=== PATIENT | female | born 1985 ===

== ENCOUNTER 2020-08-12 12:17 | Day surgery (SDC) | payer MEDICAID, SELFPAY ==
[2020-08-07 19:34] VITALS: BMI 23.9
--- NOTE | 2020-08-09 09:00 | HO.ANESPROP2 ---
Documented by User: Jyotsna Lyons 08/09/20 09:08 [facility] Past Medical History Medical History Asthma Hydradenitis Surgical History Surgical History History of incision and drainage Social History Social History Smoking Status: Never smoker Second Hand Smoke Exposure: No Meds Allergies Allergy/AdvReac Type Severity Reaction Status Date / Time Codeine Phosphate Allergy Unknown rash Uncoded 05/20/20 00:00 Home Medications Medication Instructions Recorded Confirmed Type albuterol sulfate 2 puff INHALATION QID PRN 08/07/20 08/07/20 History Exam Exam Date and Time: August 09, 2020 0900 Height,Weight and Vital Signs: Height 5 ft 7 in Weight 69.4 kg Assessment and Plan Assessment Anesthesia Assessment: Chart Reviewed Documented by User: Mary Brand 08/12/20 12:07 [facility] Past Medical History Medical History Asthma Hydradenitis Surgical History Surgical History History of incision and drainage Social History Social History Smoking Status: Never smoker Second Hand Smoke Exposure: No Meds Allergies Allergy/AdvReac Type Severity Reaction Status Date / Time Codeine Phosphate Allergy Unknown rash Uncoded 05/20/20 00:00 Home Medications Medication Instructions Recorded Confirmed Type albuterol sulfate 2 puff INHALATION QID PRN 08/07/20 08/07/20 History Exam Airway Mallampati Class: II TM Dist: >3cm Neck ROM: Full
[2020-08-12 11:46] LABS: UPreg QC Valid YES; Urine Pregnancy NEGATIVE (NEGATIVE)
[2020-08-12 11:53] VITALS: BP 92/67; PULSE 75; RESP 18; TEMP 36.6; O2SAT 97
[2020-08-12] MEDS: Lactated Ringers 1,000 ML 100 ML IVCONT (12:05)
--- NOTE | 2020-08-12 12:21 | MHC.SHP ---
Pre-Procedural Eval Section B Chief Complaint: Dysphagia Relevant Family History (Specify if Yes): No Relevant Social History: None Present Medications: see Short Stay Collaborative assessment Medical History: Significant History (asthma, vit d def) History of Previous Operations: Relevant previous surgery/procedure and date(s) (axillary surgery) Allergies: Allergies Allergy/AdvReac Type Severity Reaction Status Date / Time Codeine Phosphate Allergy Unknown rash Uncoded 05/20/20 00:00 Review of Systems Sugical H&P ROS: Negative: Constitution, Cardiovascular, Respiratory, Neurological, Psychiatric, Hem-Onc, Allergic/Immunologic, Gastrointestinal, Genitourinary, Musculoskeletal, Integumentary, Endocrine and Eyes/Ears/Nose/Throat Exam Surgical H&P Exam: Normal: HEENT, Normal: Heart, Normal: Lungs, Normal: Extremities, Normal: Abdomen, Normal: Skin and Normal: Neurological Plan Diagnosis/Plan: Unchanged Patient has been examined and remains a candidate for the planned procedure
--- NOTE | 2020-08-12 12:25 | PM.OP ---
Brief Operative Note Date of procedure: 08/12/20 Pre-op diagnosis: burping, dysphagia Post-op diagnosis: same Procedure: egd, see op note Surgeon: Stacy Fraser MD Anesthesia: MAC Estimated blood loss (mL): 10 Condition: stable Disposition: PACU
--- NOTE | 2020-08-12 12:26 | W.PM.OPN ---
Operative Note Operative Note Narrative: Procedure Description: EGD FLEXIBLE TRANSORAL UPPER GASTROINTESTINAL ENDOSCOPY UPPER ENDOSCOPY Consent: Indications for the procedure and potential complications of bleeding, perforation, reaction to medications and missed diagnosis were discussed with the patient and informed consent was obtained. Instrument: Olympus GIF H 190 J mid size upper endoscope Monitoring: Vital signs and clinical assessment, continuous EKG monitoring, Pulse oximetry, Carbon Dioxide monitoring and blood pressure monitoring were done throughout the procedure. Procedure: The patient was placed in the left lateral decubitis position and pre-procedure medications were administered and a bite block was placed. The endoscope was inserted into the mouth and advanced under direct vision to the third part of duodenum. A careful inspection was made as the upper endoscope was withdrawn including a retroflexed examination of the proximal stomach; Findings and interventions are described below. Findings: Larynx:normal Esophagus: GE junction at 36 cm, diaphragm hiatus at 36 cm, Esophagitis noted at the GEJ, moderately severe. using a savary wire a 17 mm bougie was passed and on withdrawal a superficial tear noted at upepr esophagus, mid esophagus and at GEJ. random biopsies of esophagus taken. Stomach: Patchy gastric erythema. Biopsies were obtained. Grade 2 flap valve on retroflexed examination of the cardia. Duodenum: Normal bulb and descending duodenum, Intervention: Biopsies as noted above, dilation Impression/Findings: esophageal stricture s/p dilation PLAN: clears today and advance tomorrow as tolerated high dose PPI, carafate, magic mouthwash prn if sx persist then GES, possible ph impedance, manometry testing
[2020-08-12 12:54] VITALS: BP 104/67; PULSE 96; RESP 21; TEMP 36.5; O2SAT 97
[2020-08-12 13:09] VITALS: BP 108/58; PULSE 67; RESP 14; O2SAT 99
[2020-08-12] MEDS: Mag&Al/Sim/Diphenhyd/Lidocaine 10 ML ORAL.SUSP PO (13:23)
[2020-08-12 13:24] VITALS: BP 123/87; PULSE 62; RESP 13; TEMP 36.5; O2SAT 100
[2020-08-12] MEDS: Acetaminophen 325 MG TABLET 650 MG PO (14:28)
--- NOTE | 2020-08-12 15:05 | HO.POSTANES ---
Post Anesthesia Evaluation Post Anesthesia Evaluation Vital Signs: Vital Signs Temp Pulse Resp BP Pulse Ox 08/12/20 13:24 97.7 F 62 13 123/87 100 08/12/20 13:09 67 14 108/58 L 99 08/12/20 12:54 97.7 F 96 21 H 104/67 97 08/12/20 11:53 97.8 F 75 18 92/67 97 Anesthesia: Monitored Mental Status: Awake Pain Control: Satisfactory Nausea/Vomiting: None Hydration: Adequate Anesthesia-Related Issues: No Anes. Related Issues
== END 2020-08-12 23:59 | disposition home or self-care (01) ==
PROVIDERS: Nurse Practitioner; PCP Nurse Practitioner Family; Visit Provider Internal Medicine Gastroenterology
PROC: 0DJ08ZZ Inspection of Upper Intestinal Tract, Via Natural or Artificial Opening Endoscopic (ICD-10-PCS; CPT 43235; principal; 2020-08-12 11:40)
DX: K22.2 Esophageal obstruction (principal); K20.0 Eosinophilic esophagitis; R13.10 Dysphagia, unspecified; K44.9 Diaphragmatic hernia without obstruction or gangrene; J45.909 Unspecified asthma, uncomplicated; Z88.8 Allergy status to other drugs, medicaments and biological substances
CPT/HCPCS: 43248; 43239; 81025; 88305; 88342; C1769

== ENCOUNTER → 2020-09-09 08:11 | Outpatient (BNVA) | payer MEDICAID, SELFPAY | PROVIDERS: Visit Provider Physician Assistant | DX: Z76.89 Persons encountering health services in other specified circumstances (principal) ==

== ENCOUNTER → 2020-10-14 09:29 | Outpatient (BNVA) | payer MEDICAID, SELFPAY | PROVIDERS: PCP Nurse Practitioner Family; Visit Provider Physician Assistant | DX: Z76.89 Persons encountering health services in other specified circumstances (principal) ==

== ENCOUNTER → 2020-11-15 08:05 | Outpatient (REF) | payer MEDICAID, SELFPAY ==
--- NOTE | ~2020-11-15 | NM_ITS ---
EXAMINATION: RADIONUCLIDE SOLID FOOD GASTRIC EMPTYING 4-HOUR STUDY CLINICAL INFORMATION: Gastroesophageal reflux disease. COMPARISON: No previous gastric emptying study is available for comparison. TECHNIQUE: A standard meal consisting of 4 oz of Egg Beaters brand equivalent tagged with 790 microcuries Tc-99m Sulfur Colloid, 8 oz water and 2 slices of toast with jelly was administered orally to the patient. Images were obtained using a dual head gamma camera in the anterior and posterior projections over of the stomach immediately post ingestion and at hourly intervals up to 4 hours post ingestion. The anterior and posterior counts at each time interval were averaged using the geometric mean and expressed as percentage of the immediate post ingestion counts. FINDINGS: There is good visualization of activity in the stomach immediately post ingestion. As the study progresses, there is good clearance of activity from the stomach and visualization of progressively increasing small bowel activity. By the end of the study, there is almost no retention noted in the stomach. Retention in the stomach at each time interval was: 1 hour 62% (normal 37%-90%) 2 hours 38% (normal 30%-60%) 3 hours 13% 4 hours 9% (normal 0%-10%) NM/NM gastric emptying study IMPRESSION: Normal 4-hour solid food gastric emptying study.
== END ==
LOC: HO.NUCMED 08:05
PROVIDERS: Visit Provider Physician Assistant
DX: K21.9 Gastro-esophageal reflux disease without esophagitis (principal)
CPT/HCPCS: 78264; A9541

== ENCOUNTER 2020-12-09 13:04 | Outpatient (REF) | payer MEDICAID, SELFPAY | END 2020-12-09 13:05 | disposition home or self-care (01) | LOC: HO.LNP 13:04 | PROVIDERS: PCP Nurse Practitioner Family; Visit Provider Surgery | DX: L72.0 Epidermal cyst (principal) | CPT/HCPCS: 11402; 99212 ==

== ENCOUNTER 2020-12-09 15:23 | Outpatient (REF) | payer MEDICAID, SELFPAY | END 2020-12-09 15:24 | disposition home or self-care (01) | LOC: HO.LAB 15:23 | PROVIDERS: Visit Provider Surgery | DX: L72.0 Epidermal cyst (principal) | CPT/HCPCS: 88304 ==

== ENCOUNTER → 2020-12-23 13:32 | Outpatient (BNVA) | payer MEDICAID, SELFPAY | PROVIDERS: PCP Nurse Practitioner Family; Visit Provider Surgery | DX: Z48.817 Encounter for surgical aftercare following surgery on the skin and subcutaneous tissue (principal); Z87.2 Personal history of diseases of the skin and subcutaneous tissue | CPT/HCPCS: 99212 ==

== ENCOUNTER → 2021-03-17 14:56 | Outpatient (BNVA) | payer MEDICAID, SELFPAY | PROVIDERS: PCP Nurse Practitioner Family; Visit Provider Surgery | DX: L72.0 Epidermal cyst (principal) | CPT/HCPCS: 99212 ==

== ENCOUNTER → 2021-06-10 12:55 | Outpatient (BNVA) | payer MEDICAID, SELFPAY | PROVIDERS: PCP Internal Medicine; Referring Provider Internal Medicine; Visit Provider Physician Assistant | DX: K21.9 Gastro-esophageal reflux disease without esophagitis (principal); G47.30 Sleep apnea, unspecified; Z78.9 Other specified health status | CPT/HCPCS: 99212 ==

== ENCOUNTER → 2021-09-03 14:37 | Outpatient (BNVA) | payer MEDICAID, SELFPAY | PROVIDERS: PCP Internal Medicine; Visit Provider Surgery | DX: L72.0 Epidermal cyst (principal) | CPT/HCPCS: 99212 ==

== ENCOUNTER 2021-10-09 08:23 | Outpatient (REF) | payer MEDICAID, SELFPAY | END 2021-10-09 08:24 | disposition home or self-care (01) | LOC: HO.MS 08:23 | PROVIDERS: Visit Provider Surgery | DX: L72.0 Epidermal cyst (principal); Z53.20 Procedure and treatment not carried out because of patient's decision for unspecified reasons ==

== ENCOUNTER 2021-10-30 16:00 | Outpatient (REF) | payer MEDICAID, SELFPAY ==
--- NOTE | ~2021-10-30 | XR_ITS ---
EXAMINATION: XR KNEE, RIGHT CLINICAL INFORMATION: Pain COMPARISON: None TECHNIQUE: Four views of the right knee. FINDINGS: Bones and soft tissues are normal. No fracture or joint effusion. Alignment is anatomic. Joint spaces are well maintained. No abnormal soft tissue calcification. XR/XR knee RT 4V IMPRESSION: Normal right knee.
== END 2021-10-30 16:01 | disposition home or self-care (01) ==
LOC: HO.XRAY 16:00
PROVIDERS: PCP Registered Nurse Community Health; Visit Provider Nurse Practitioner
DX: M25.561 Pain in right knee (principal)
CPT/HCPCS: 73564

== ENCOUNTER 2021-11-01 11:57 | Emergency (ER) | payer MEDICAID, SELFPAY ==
[2021-11-01 13:52] VITALS: BP 108/67; PULSE 65; RESP 19; TEMP 36.6; O2SAT 100; BMI 23.9
--- NOTE | 2021-11-01 14:35 | ED.WOUNDLAC ---
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 Patient tells me this occurs quite commonly to her especially if she is shaving. No fevers, chills, numbness, tingling. Related Data Home Medications Medication Instructions Recorded Confirmed albuterol sulfate 90 mcg/actuation 2 puff INHALATION QID PRN 08/07/20 09/03/21 aerosol inhaler Previous Rx's Medication Instructions Recorded pantoprazole 40 mg tablet,delayed 40 mg PO Q12H 90 Days #180 tab 10/30/21 release sucralfate 100 mg/mL oral 10 ml PO BID #420 ml 10/30/21 suspension (Carafate) doxycycline monohydrate 100 mg 100 mg PO BID #20 tab 11/01/21 tablet Allergies Allergy/AdvReac Type Severity Reaction Status Date / Time Codeine Phosphate Allergy Unknown rash Uncoded 06/10/21 13:04 Review of Systems Review of Systems: Yes all other systems are reviewed and are negative Constitutional: Constitutional: Reports no additional constitutional complaints, Denies body ache(s), Denies chills, Denies fever(s), Denies headache(s) and Denies weakness Eyes: Eyes: Reports no additional eye complaints and Denies change in vision ENT: Reports system reviewed and no additional complaints, except as documented, Denies dizziness, Denies headache(s), Denies nasal congestion, Denies nasal discharge and Denies neck pain Cardiovascular: Cardiovascular: Reports no additional cardiovascular complaints, Denies chest pain, Denies leg edema and Denies dyspnea Respiratory: Respiratory: Reports no additional respiratory complaints, Denies cough and Denies dyspnea Gastrointestinal: Gastrointestinal: Reports no additional gastrointestinal complaints, Denies abdominal pain, Denies diarrhea, Denies nausea and Denies vomiting Genitourinary: Genitourinary: Reports no additional female genitourinary complaints and Denies urinary incontinence Musculoskeletal: Musculoskeletal: Reports no additional musculoskeletal complaints, Denies back pain, Denies arthralgias, Denies joint swelling, Denies neck pain, Denies numbness and Denies tingling Integumentary/Breasts: Skin/Breast: Reports system reviewed and no additional complaints, except as docu, Reports swelling and Denies rash Neurologic: Reports system reviewed and no additional complaints, except as documented, Denies Abnormal speech present, Denies dizziness, Denies headache(s), Denies numbness, Denies tingling and Denies weakness [facility] Past Medical History Attestation statement: The following information was validated with the patient. Source: old records reviewed and nursing notes reviewed Medical History Acid reflux Aerophagia Asthma Epidermal cyst Hydradenitis Surgical History History of incision and drainage Social History Social History Household Members Other:: Lives alone no children Second Hand Smoke Exposure: No Advance Directives: No Advance Directives Information Provided: No Patient : No Current occupational status: employed Current occupation: [employer] Physical Exam Vital Signs: Vital Signs: Last Vital Signs Temp 98 F 11/01/21 13:52 Pulse 65 11/01/21 13:52 Resp 19 11/01/21 13:52 BP 108/67 11/01/21 13:52 Pulse Ox 100 11/01/21 13:52 BMI result Body Mass Index 23.9 Const: General: cooperative, healthy appearing, comfortable and no acute distress Orientation/consciousness: patient oriented x3 Limitations: no limitations HENMT: Head: Yes normal to inspection Ears: hearing grossly normal bilaterally General nose exam: Normal external nose present Face and sinus: Yes normal facial exam Mouth: Normal oral and palatal mucosa present Throat: Yes posterior oropharynx normal Eyes: General: appearance normal, both eyes and all related structures Pupils: Equal, round and reactive pupils present Neck: Neck: Yes normal visual inspection Chest: Chest palpation & inspection: normal inspection of the chest Resp: Effort & Inspection: normal respiratory effort Auscultation: clear to auscultation bilaterally Cardio: Rate: regular rate Rhythm: regular rhythm Peripheral pulses: Peripheral pulses 2+ throughout GI: Inspection: Yes normal to inspection Palpation (GI): Soft to palpation and nontender Auscultation: normal bowel sounds : Female genitals images: 1. Small area of swelling with drainage noted. No deeper fluctuance/induration. +tenderness 2. Small area of swelling with tenderness and induration. NO fluctuance/pointing or drainage. Back/Spine/Pelvis: Thoracic/Lumbar Spine: thoracic and lumbar spine normal to inspection Skin: General skin exam: no rashes or lesions noted Neuro: General: patient oriented x3, no focal motor deficits and normal sensation to monofilament Cranial nerves: Yes Equal, round and reactive pupils present Cognition (Neuro): normal cognition Speech: No Abnormal speech present Gait exam (Neuro): Normal gait present Motor exam (neuro): 5/5 motor strength present throughout Extrem: General: Yes normal to inspection Course Course Course Narrative: 36 yo female here with reoccurrent abscesses which she contributes shaving. On exam she has 2 small abscesses 1 that is draining on its own and a 2nd that is very firm and indurated with no pointing or fluctuance. I explained to the patient that at this time I would not perform an I&D. She should do warm soaks at home and we will start her on oral antibiotic. Reviewed worrisome signs and symptoms of when to return to the emergency department. Comfortable discharge home. MDM - Wound/Laceration Differential Diagnosis Differential diagnosis: Likely abscess Medical Records Attestation: I reviewed the patient's medical records. Lab Data Attestation: I reviewed the patient's lab results. Discharge Plan Discharge Clinical Impression: Folliculitis Patient Disposition: Home, Self-Care Instructions: Folliculitis (ED) Additional Instructions: Warm soaks with washcloth or warm tea bag Start antibiotics today. Take with food No shaving, exfoliate with a scrub daily in shower Prescriptions: New doxycycline monohydrate 100 mg tablet 100 mg PO BID Qty: 20 RF: 0 No Action pantoprazole 40 mg tablet,delayed release (DR/EC) 40 mg PO Q12H 90 Days Qty: 180 RF: 1 sucralfate [Carafate] 100 mg/mL suspension 10 ml PO BID Qty: 420 RF: 0 albuterol sulfate 90 mcg/actuation Hfa Aerosol Inhaler 2 puff INHALATION QID PRN (Reason: Shortness Of Breath) RF: 0 Referrals: Physician,Unknown J [Primary Care Provider] - 2 days Interventions: ED Discharge Assessment Last Done: 11/01/21 14:53 Discharge Date/Time: 11/01/21 14:53
== END 2021-11-01 14:53 | disposition home or self-care (01) ==
PROVIDERS: Emergency Provider Internal Medicine
DX: L73.9 Follicular disorder, unspecified (principal)
CPT/HCPCS: 99283

== ENCOUNTER → 2022-02-23 09:26 | Outpatient (BNVA) | payer MEDICAID, SELFPAY | PROVIDERS: PCP Registered Nurse Community Health; Referring Provider Registered Nurse Community Health; Visit Provider Surgery | DX: L72.0 Epidermal cyst (principal) | CPT/HCPCS: 99212 ==

== ENCOUNTER 2022-07-02 14:04 | Outpatient (REF) | payer MEDICAID, SELFPAY ==
--- NOTE | ~2022-07-02 | US_ITS ---
EXAMINATION: US PELVIS CLINICAL INFORMATION: Dyspareunia COMPARISON: Previous pelvic ultrasound October 2016 TECHNIQUE: Ultrasound of the pelvis is performed using both transabdominal and transvaginal transducers along with Doppler. Transvaginal imaging is performed due to inadequate visualization transabdominally. FINDINGS: Uterus: The uterus is anteverted and measures 9.1 x 3.1 x 4.6 cm. The double wall endometrial thickness is 6 mm. The uterus is smooth in contour and has normal myometrial echogenicity. No visible fibroid. Adnexa: Both ovaries are visualized. Right ovary measures 3.5 x 2.7 x 2.4 cm. There is a 1.8 cm simple cyst. Left ovary measures 4.2 x 3 x 2.5 cm. There is a 1.9 x 2 x 1.4 cm complex cyst probably representing a resolving physiologic cyst. No ultrasound follow-up warranted based on patient age and size of cysts. There is a small amount of fluid in the pelvis. US/US pelvic and transvaginal IMPRESSION: Small bilateral right simple and left left complex ovarian cysts.
== END 2022-07-02 14:05 | disposition home or self-care (01) ==
LOC: HO.US 14:04
PROVIDERS: Visit Provider Registered Nurse Community Health
DX: N94.10 Unspecified dyspareunia (principal)
CPT/HCPCS: 76830; 76856

== ENCOUNTER 2022-08-26 08:26 | Outpatient (REF) | payer MEDICAID, SELFPAY ==
[2022-08-26 17:25] LABS: CT PCR NOT DETECTED (Not Detect.); NG PCR NOT DETECTED (Not Detect.)
[2022-08-27 10:12] LABS: BV Int Neg Control Negative (Negative); BV Int Pos Control Positive (Positive)
== END 2022-08-26 08:27 | disposition home or self-care (01) ==
LOC: HO.LNP 08:26
PROVIDERS: Visit Provider Obstetrics & Gynecology
DX: N94.6 Dysmenorrhea, unspecified (principal); N94.10 Unspecified dyspareunia; N83.299 Other ovarian cyst, unspecified side; R31.29 Other microscopic hematuria; Z32.02 Encounter for pregnancy test, result negative
CPT/HCPCS: 81025; 87086; 87480; 87491; 87510; 87591; 87660; 99202

== ENCOUNTER → 2022-09-08 08:19 | Outpatient (BNVA) | payer MEDICAID, SELFPAY | PROVIDERS: PCP Registered Nurse Community Health; Visit Provider Obstetrics & Gynecology | DX: R31.29 Other microscopic hematuria (principal) | CPT/HCPCS: 99212 ==

== ENCOUNTER 2022-09-10 09:20 | Outpatient (REF) | payer MEDICAID, SELFPAY ==
--- NOTE | ~2022-09-10 | CT_ITS ---
EXAMINATION: CT ABDOMEN AND PELVIS WITHOUT AND WITH CONTRAST CLINICAL INFORMATION: Microscopic hematuria COMPARISON: Previous pelvic ultrasound June 2022 TECHNIQUE: Noncontrast CT of the abdomen and pelvis is performed followed by split bolus contrast-enhanced images using 85 mL Omnipaque 350 contrast.? Postcontrast imaging is performed during the combined nephrogram and excretion phase. Sagittal and coronal reformatted images were obtained on the technologist's workstation for both the precontrast and postcontrast phases. This CT examination was performed using dose optimization techniques as appropriate, variously including the following: *Automated exposure control *Adjustment of mA and/or kV according to patient size (this includes techniques or standardized protocols for targeted exams where dose is matched to indication/reason for exam; i.e. extremities or head) *Use of iterative reconstruction technique DLP: 1075 mGy-cm FINDINGS: LUNG BASES: The visualized lung bases are unremarkable. LIVER, GALLBLADDER, AND BILIARY TREE: The liver is normal in size, shape, and attenuation. No focal hepatic lesion or biliary ductal dilatation is present. The gallbladder is unremarkable with no evidence of radiopaque gallstones, gallbladder wall thickening, or obvious pericholecystic inflammatory changes. PANCREAS: Unremarkable. SPLEEN: Unremarkable. ADRENAL GLANDS: Unremarkable. KIDNEYS AND URETERS: The kidneys are normal in size, shape, and attenuation. No hydronephrosis, hydroureter, or calculi seen. The collecting systems are normal. Upper ureters are normal. The distal ureters are not well opacified with excreted contrast but appear unremarkable. No perinephric stranding. BLADDER: Unremarkable. GASTROINTESTINAL TRACT: The small and large bowel are unremarkable. The appendix is unremarkable. ABDOMINAL WALL: No significant hernia is appreciated. LYMPH NODES: Normal. VASCULAR: Unremarkable. PELVIC VISCERA: The uterus and ovaries are unremarkable. There is a small amount of fluid in the pelvis. OSSEUS STRUCTURES: Mild curvature of the lumbar spine to the left. CT/CT urogram IMPRESSION: Unremarkable CT urogram. No cause of hematuria.
[2022-09-10] MEDS: iohexoL 350 MG/ML 100 ML INFUS..BTL IV (10:21)
== END 2022-09-10 09:21 | disposition home or self-care (01) ==
LOC: HO.CT 09:20
PROVIDERS: Visit Provider Obstetrics & Gynecology
DX: R31.29 Other microscopic hematuria (principal)
CPT/HCPCS: 74178; Q9967

== ENCOUNTER 2022-09-21 15:09 | Emergency (ER) | payer MEDICAID, SELFPAY ==
--- NOTE | 2022-09-21 15:14 | ED_ITS ---
HPI - General Adult General Chief complaint: General Medical Stated complaint: losing a lot of hair, bad scalp? Time Seen by Provider: 09/21/22 15:23 Source: patient Mode of arrival: ambulatory Limitations: no limitations History of Present Illness HPI narrative: 37 yo female with history of GERD here with complaints of losing her hair since 08/31. 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 Has appointment 09/24 with a primary care doctor. Went to walk in clinic the week of the 31 of august. Starting using betamethasone cream since then but experiencing increased hair loss. No increased stressors in life prior to hair loss. Related Data Home Medications Medication Instructions Recorded Confirmed albuterol sulfate 90 mcg/actuation 2 puff inhalation QID PRN 08/07/20 09/03/21 aerosol inhaler Shortness Of Breath Previous Rx's Medication Instructions Recorded pantoprazole 40 mg tablet,delayed 40 mg PO Q12H 3 months #180 tabs 10/30/21 release doxycycline monohydrate 100 mg 100 mg PO BID #20 tabs 11/01/21 tablet sucralfate 100 mg/mL oral 10 ml PO BID #420 mL 11/13/21 suspension (Carafate) Allergies Allergy/AdvReac Type Severity Reaction Status Date / Time Codeine Phosphate Allergy Unknown rash Uncoded 09/08/22 08:36 Review of Systems Review of Systems: Yes all other systems are reviewed and are negative Constitutional: Constitutional: Reports no additional constitutional complaints, Denies body ache(s), Denies chills, Denies fever(s), Denies headache(s) and Denies weakness Eyes: Eyes: Reports no additional eye complaints and Denies change in vision ENT: Reports system reviewed and no additional complaints, except as doctrupti lofton, Denies dizziness, Denies headache(s), Denies nasal congestion, Denies nasal discharge and Denies neck pain Cardiovascular: Cardiovascular: Reports no additional cardiovascular complaints, Denies chest pain, Denies leg edema and Denies dyspnea Respiratory: Respiratory: Reports no additional respiratory complaints, Denies cough and Denies dyspnea Gastrointestinal: Gastrointestinal: Reports no additional gastrointestinal complaints, Denies abdominal pain, Denies diarrhea, Denies nausea and Denies vomiting Genitourinary: Genitourinary: Reports no additional female genitourinary complaints and Denies urinary incontinence Musculoskeletal: Musculoskeletal: Reports no additional musculoskeletal complaints, Denies back pain, Denies arthralgias, Denies joint swelling, Denies neck pain, Denies numbness and Denies tingling Integumentary/Breasts: Skin/Breast: Reports system reviewed and no additional complaints, except as docu and Denies rash Neurologic: Reports system reviewed and no additional complaints, except as documented, Denies dizziness, Denies headache(s), Denies numbness, Denies tingling and Denies weakness PMF Past Medical History Attestation statement: The following information was validated with the patient. Source: old records reviewed and nursing notes reviewed Medical History Acid reflux Aerophagia Asthma Epidermal cyst Hydradenitis Surgical History History of incision and drainage Social History Social History Household Members Other:: Lives alone no children Second Hand Smoke Exposure: No Advance Directives: No Advance Directives Information Provided: No 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 Physical Exam ED Vital Signs: Vital Signs - 24 hr 09/21/22 15:15 Temperature 97.8 F Pulse Rate 82 Respiratory Rate 16 Blood Pressure 100/55 L Pulse Oximetry 100 Oxygen Delivery Method Room Air BMI result Body Mass Index 23.9 Const General: cooperative, healthy appearing, comfortable and no acute distress Orientation/consciousness: patient oriented x3 Limitations: no limitations HENMT Other: To the left occipit there is a circular area of absent hair in a patch like pattern. No redness, warmth, drainage Head: Yes normal to inspection Ears: hearing grossly normal bilaterally Eyes General: appearance normal, both eyes and all related structures Pupils: Equal, round and reactive pupils present Neck Neck: Yes normal visual inspection, Yes full ROM and Yes no lymphadenopathy Chest Chest palpation & inspection: normal inspection of the chest Resp Effort & Inspection: normal respiratory effort Auscultation: clear to auscultation bilaterally Cardio Rate: regular rate Rhythm: regular rhythm Peripheral pulses: Peripheral pulses 2+ throughout GI Inspection: Yes normal to inspection Palpation (GI): Soft to palpation and nontender General: Yes no CVA tenderness Back/Spine/Pelvis Back: no CVA tenderness Thoracic/Lumbar Spine: thoracic and lumbar spine normal to inspection Skin General skin exam: no rashes or lesions noted Neuro General: patient oriented x3 and moves all extremities Cranial nerves: Yes Equal, round and reactive pupils present Cognition (Neuro): normal cognition Gait exam (Neuro): Normal gait present Medical Decision Making Medical Decision Making MDM Narrative: 37-year-old female who is experiencing hair loss for several weeks despite using betamethasone topical cream. Patient has an appointment with primary care on the to discuss this. She also has an appointment in November to see dermatology. Patient is concerned because the cream seems to be making her hair loss worse. Recommended discontinuing topical steroids. Patient can follow-up with her primary care as scheduled in 3 days. No evidence of infection on exam. There is a patch like area of missing hair over the left occipt. Reviewed worrisome signs and symptoms when to return to the emergency room. Comfortable plan for discharge home. Discharge Plan Discharge Clinical Impression: Hair loss Patient Disposition: Home, Self-Care Instructions: Alopecia (DC) Additional Instructions: Stop using the cream Start taking over the counter biotin supplements (hair, skin, nails vitamins). Use a wet brush for brushing the hair Keep appointment for the Prescriptions: No Action pantoprazole 40 mg tablet,delayed release (DR/EC) 40 mg PO Q12H 90 Days Qty: 180 1RF sucralfate [Carafate] 100 mg/mL suspension 10 ml PO BID Qty: 420 0RF albuterol sulfate 90 mcg/actuation Hfa Aerosol Inhaler 2 puff INHALATION QID PRN (Reason: Shortness Of Breath) doxycycline monohydrate 100 mg tablet 100 mg PO BID Qty: 20 0RF Referrals: ED Physician,Generic [Physician] - Interventions: ED Discharge Assessment Last Done: 09/21/22 15:25
[2022-09-21 15:15] VITALS: BP 100/55; PULSE 82; RESP 16; TEMP 36.6; O2SAT 100; BMI 23.9
--- OUTSIDE RECORDS SUMMARY | 2022-09-21 15:30 | XMS_ITS | Continuity of Care Document ---
:1985 Author Organization [facility] Address [address] [place] [id number]- Care Team Providers Name Role Phone Not on Staff, PCP Primary Care Physician Unavailable Encounter [facility] Date(s): 10/23/21 - 11/22/[address] [id number] Attending Physician: Allan Palacio Admitting Physician: Allan Palacio Referring Physician: Allan Palacio
--- OUTSIDE RECORDS SUMMARY | 2022-09-21 15:30 | XMS_ITS | Continuity of Care Document ---
:1985 Author Organization [facility] Address [address] [place] [id number]- Care Team Providers Name Role Phone Not on Staff, PCP Primary Care Physician Unavailable Encounter [facility] Date(s): 10/08/21 - 11/13/[address] [id number] Attending Physician: Ana Ibarra Admitting Physician: Ana Ibarra Referring Physician: Ana Ibarra
--- OUTSIDE RECORDS SUMMARY | 2022-09-21 15:30 | XMS_ITS | Continuity of Care Document ---
:1985 Author Organization [facility] Address [address] [place] [id number]- Care Team Providers Name Role Phone Not on Staff, PCP Primary Care Physician Unavailable Encounter [facility] Date(s): 10/17/21 - 11/22/[address] [id number] Attending Physician: Ana Ibarra Admitting Physician: Ana Ibarra Referring Physician: Ana Ibarra
== END 2022-09-21 15:28 | disposition home or self-care (01) ==
LOC: HO.ED 15:29
PROVIDERS: Emergency Provider Emergency Medicine
DX: L65.9 Nonscarring hair loss, unspecified (principal)
CPT/HCPCS: 99282

== ENCOUNTER 2022-09-29 16:06 | Outpatient (REF) | payer MEDICAID, SELFPAY ==
--- NOTE | ~2022-09-29 | US_ITS ---
EXAMINATION: US PELVIS CLINICAL INFORMATION: Ovarian cyst on ultrasound 07/02/2022 COMPARISON: 07/02/2022 TECHNIQUE: Ultrasound of the pelvis is performed using both transabdominal and transvaginal transducers along with Doppler. Transvaginal imaging is performed due to inadequate visualization transabdominally. FINDINGS: The uterus is anteverted and measures 6.8 x 3.1 x 4.3 cm. No discrete fibroids. Endometrial thickness is 0.6 cm. No significant free fluid. Left ovary is unremarkable and measures 3.4 x 2.4 x 1.8 cm, volume 7.7 mL. Previously identified left ovarian complex cyst is not identified today. Right ovary measures 2.3 x 1.6 x 1.8 cm, volume 3.5 mL. Right ovarian 1.6 x 1.2 x 1.6 cm cyst is likely simple and likely physiologic, possibly a dominant follicle. Previous exam demonstrated a 1.8 cm right ovarian simple cyst. US/US pelvic and transvaginal IMPRESSION: 1. Interval resolution of previously seen left ovarian complex cyst. 2. Right ovarian 1.6 cm simple cyst redemonstrated, likely physiologic.
== END 2022-09-29 16:07 | disposition home or self-care (01) ==
LOC: HO.US 16:06
PROVIDERS: Visit Provider Obstetrics & Gynecology
DX: N83.299 Other ovarian cyst, unspecified side (principal)
CPT/HCPCS: 76830; 76856

== ENCOUNTER → 2022-10-13 08:03 | Outpatient (BNVA) | payer MEDICAID, SELFPAY | PROVIDERS: Visit Provider Obstetrics & Gynecology | DX: R31.29 Other microscopic hematuria (principal); N83.299 Other ovarian cyst, unspecified side | CPT/HCPCS: 99212 ==

== ENCOUNTER 2022-10-20 14:02 | Outpatient (REF) | payer MEDICAID, SELFPAY ==
[2022-10-21 10:01] LABS: BV Int Neg Control Negative (Negative); BV Int Pos Control Positive (Positive)
== END 2022-10-20 14:03 | disposition home or self-care (01) ==
LOC: HO.LNP 14:02
PROVIDERS: Visit Provider Advanced Practice Midwife
DX: N89.8 Other specified noninflammatory disorders of vagina (principal); R31.29 Other microscopic hematuria; B37.31 Acute candidiasis of vulva and vagina; L63.9 Alopecia areata, unspecified
CPT/HCPCS: 81003; 87480; 87510; 87660; 99212

== ENCOUNTER 2022-12-22 09:59 | Outpatient (REF) | payer MEDICAID, SELFPAY ==
[2022-12-22 16:48] LABS: Urine Cytology See Pathology rpt
== END 2022-12-22 10:00 | disposition home or self-care (01) ==
LOC: HO.LAB 09:59
PROVIDERS: Visit Provider Nurse Practitioner Family
DX: R31.29 Other microscopic hematuria (principal)
CPT/HCPCS: 88112; 99202

== ENCOUNTER 2023-11-22 14:08 | Outpatient (REF) | payer MEDICAID, SELFPAY ==
[2023-11-25 14:03] LABS: TS Negative Control Passed; TS Panel A 0; TS Panel B 1; TS Positive Control Passed; TSpotTB Negative (Negative)
== END 2023-11-22 14:09 | disposition home or self-care (01) ==
LOC: HO.CHCLDS 14:08
PROVIDERS: Visit Provider Registered Nurse
DX: Z11.1 Encounter for screening for respiratory tuberculosis (principal)
CPT/HCPCS: 36415; 86481

== ENCOUNTER 2023-12-27 10:11 | Outpatient (REF) | payer MEDICAID, SELFPAY ==
[2023-12-27 14:43] LABS: Estimated Average Glucose 105 mg/dL; Hemoglobin A1c % 5.3 % (<6.0)
[2023-12-27 14:48] LABS: Anion Gap 12 (12-20); Blood Urea Nitrogen 8 mg/dL (9-16); Calcium 8.7 mg/dL (8.4-10.2); Carbon Dioxide 24 mmol/L (22-29); Chloride 110 mmol/L (96-108); Estimated Glomerular Filt Rate > 60; Glucose Random 66 mg/dL (60-115); Sodium 142 mmol/L (135-145)
== END 2023-12-27 10:12 | disposition home or self-care (01) ==
LOC: HO.CHCLDS 10:11
PROVIDERS: Visit Provider Registered Nurse
DX: Z86.32 Personal history of gestational diabetes (principal)
CPT/HCPCS: 36415; 80048; 83036

== ENCOUNTER 2024-01-28 11:23 | Outpatient (REF) | payer MEDICAID, SELFPAY ==
[2024-01-28 16:51] LABS: Alanine Aminotransferase 17 U/L (0-31); Albumin Level 4.3 g/dL (3.5-5.0); Alkaline Phosphatase 66 U/L (39-117); Aspartate Amino Transferase 13 U/L (5-31); Bilirubin Direct 0.1 mg/dL (0.0-0.5); Bilirubin Total 0.4 mg/dL (0.0-1.0); Cholesterol 207 mg/dL (<200); HDL Cholesterol 42 mg/dL (>40); LDL Cholesterol Calculated 146 mg/dL (<100); Total Protein 7.1 g/dL (6.5-8.0); Triglycerides 96 mg/dL (<150)
[2024-01-28 17:13] LABS: TSH reflex Free T4 0.67 uIU/mL (0.32-4.0)
[2024-01-29 04:11] LABS: HIV AB/AG Nonreactive (Nonreactive); HIV Num 1 0.05 S/CO (0.00-0.99)
[2024-01-31 11:14] LABS: RPR Rapid Plasma Reagin NON-REACTIVE (NON-REACTIVE)
[2024-01-31 14:03] LABS: HCV Log PCR <1.18 NOT DETECTED Log IU/mL (NOT DETECTED); HepC Viral Load <15 NOT DETECTED IU/mL (NOT DETECTED)
== END 2024-01-28 11:24 | disposition home or self-care (01) ==
LOC: HO.CHCLDS 11:23
PROVIDERS: Visit Provider Registered Nurse
DX: Z00.00 Encounter for general adult medical examination without abnormal findings (principal)
CPT/HCPCS: 36415; 80061; 80076; 84443; 86592; 87389; 87522

== ENCOUNTER 2024-02-15 14:49 | Outpatient (AMB) | payer MEDICAID, SELFPAY ==
--- NOTE | 2024-02-15 14:50 | A.OFFVIS_ITS ---
Intake Visit Reasons: 1yr follow up Intake Note: Patient presents for microscopic hematuria Urology Medications: none Blood thinner: none Service Person Required: No Accompanied by: Self / Same As Patient Allergies Codeine Phosphate Allergy (Unknown, Uncoded 02/15/24 15:17) rash Medication List - Last Reconciled 02/15/24 by SWAPNIL Urbina albuterol sulfate 90 mcg/actuation 2 puffs inhalation QID PRN betamethasone dipropionate 0.05% appl topical DAILY loratadine 10 mg PO DAILY mupirocin 2% topical DAILY PRN HPI Comments Details: Mariaelena is a pleasant 38-year-old female patient. She presents to the office today for a follow up of her microscopic hematuria. In discussion with the patient today she reports to be doing and feeling well. She reports recently having a baby (Thea) in August and has been recovering well. She currently denies any bothersome urinary issues or concerns. In office urinalysis results reviewed with the patient today 2+ leukocytes negative for microscopic hematuria. Previous urine cytology results reviewed with the patient today. Urine cytology 12/31 Negative for high-grade urothelial carcinoma. Previous workup has included a CT of the abdomen and pelvis that noted kidneys and ureters are normal in size and shape. No hydronephrosis, hydroureter, or calculi seen. The bladder is unremarkable. When asked patient reports longstanding history of recreational marijuana use. She reports having stopped recreational marijuana use while however has since resumed. Discussed at length potential causes of microscopic hematuria, positive leukocytes, and proteinuria. Discussed referral to Nephrology as she discusses having a family history of kidney issues. When asked she currently denies urinary urgency, urinary frequency, incontinence, nocturia, hematuria, dysuria, foul smelling urine, changes to urinary stream, flank pain, fever, and or chills. ? 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 Review of Systems Const Reports as per HPI Eyes Reports no additional complaints ENT Reports no additional complaints Card Reports no additional complaints Resp Reports no additional complaints GI Details: Patient reports long standing history of GERD Reports as per HPI Neuro Reports no additional complaints Psych Reports no additional complaints Endo Reports no additional complaints Heron/Lymph Reports no additional complaints Aller/Immun Reports no additional complaints Physical Exam Const General: cooperative, healthy appearing, comfortable, no acute distress, well developed, alert and awake Nutritional Appearance: average body habitus Orientation/consciousness: patient oriented x3 Limitations: no limitations HEENT Head: Yes normal to inspection, Yes normocephalic and Yes atraumatic Ears: hearing grossly normal bilaterally Eyes General: appearance normal, both eyes and all related structures Neck Neck: Yes normal visual inspection and Yes trachea midline Chest Chest palpation & inspection: normal inspection of the chest Resp Effort & Inspection: normal respiratory effort and able to speak in complete sentences Cardio Rate: regular rate GI Inspection: Yes normal to inspection General: Yes no CVA tenderness Back/Spine/Pelvis Back: no CVA tenderness Skin General skin exam: no rashes or lesions noted Neuro General: patient oriented x3 Extrem General: Yes normal to inspection Psych Appearance: grossly normal and well kempt Mental Status: mental status grossly normal Speech and movement: Normal speech and movement present and Clear speech present Affect: normal affect Attitude: cooperative Thought process: Normal thought process present Thought content: Normal thought content present Insight: Fair insight present (Psych) Judgement: Fair judgement present (Psych) Results AMB Urinalysis, Automated UA Leukoctes 125 Lv/uL Last Edit by [employer] on 02/15/24 15:09 UA Nitrite Negative Last Edit by [employer] on 02/15/24 15:09 UA Urobilinogen 0.2 mg/dL Last Edit by [employer] on 02/15/24 15:09 UA Protein 30 mg/dL Last Edit by [employer] on 02/15/24 15:09 UA pH 6.5 Last Edit by [employer] on 02/15/24 15:09 UA Blood 0 Kenny/uL Last Edit by [employer] on 02/15/24 15:09 UA Specific [place] 1.020 Last Edit by [employer] on 02/15/24 15:09 UA Ketone Positive Last Edit by Guerrero Rainey on 02/15/24 15:09 UA Bilirubin 1 mg/dL Last Edit by Guerrero Rainey on 02/15/24 15:09 UA Glucose 0 mg/dL Last Edit by Guerrero Rainey on 02/15/24 15:09 Results Reviewed Results Reviewed: Laboratory Last Values Urine pH (Auto) 6.5 02/15/24 14:56 Specific [place] (Auto) 1.020 02/15/24 14:56 Urine Protein (Auto) 30 mg/dL 02/15/24 14:56 Glucose (UA)(Auto) 0 mg/dL 02/15/24 14:56 Urine Ketones (Auto) Positive 02/15/24 14:56 Urine Blood (Auto) 0 Kenny/uL 02/15/24 14:56 Urine Nitrite (Auto) Negative 02/15/24 14:56 Urine Bilirubin (Auto) 1 mg/dL 02/15/24 14:56 Urine Urobilinogen (Auto) 0.2 mg/dL 02/15/24 14:56 Leukocyte Esterase (Auto) 125 Lv/uL 02/15/24 14:56 Assessment & Plan Assessment & Plan (1) Microscopic hematuria: Comment: today 10/20 is ending menses... Has had work up. Code(s): R31.29 - Other microscopic hematuria Category: Medical (2) Proteinuria: Code(s): R80.9 - Proteinuria, unspecified Category: Medical Plan In office urinalysis results reviewed with the patient today; 2+ leukocytes proteinuria noted Patient currently denies any bothersome urinary issues or concerns. She reports be happy with current voiding parameters. Discussed, educated, and stressed the importance of limiting/quitting recreational marijuana use for overall health and well-being. Discussed referral to Nephrology as patient with family history of kidney disease and 1+ proteinuria noted on dipstick today; however she declines at this time. Discussed, educated, and stressed the importance of drinking water daily. Will continue with surveillance monitoring. Will obtain retroperitoneal ultrasound, BUN, and creatinine in 1 year. Follow-up in 1 year with imaging and labs to be completed prior; or sooner with any issues, concerns, and or questions. Orders: Orders AMB Urinalysis Automated Today Z13.9 - Encounter for screening, unspecified Blood Urea Nitrogen 1 Year R31.29 - Other microscopic hematuria US retroperitoneal comp 1 Year R31.29 - Other microscopic hematuria Creatinine Today R31.29 - Other microscopic hematuria Patient Instructions: The patient had an opportunity to ask questions regarding the treatment plan. All questions were answered. Physical exam, labs, and imaging were discussed and reviewed in detail. As well as risks, benefits, and discussion of treatment ch oices. No major barriers to understanding were identified. The patient expressed understanding and agreement with the above treatment plan. The patient was made aware they should contact our office by phone for worsening of their current condition, the appearance of new symptoms, or with any questions or concerns. Compliance is encouraged with any medications and follow up testing that is ordered. It is a privilege to be allowed the opportunity to participate in? your urological care.? Again, if you have any questions or concerns If you have any questions or concerns please do not hesitate to contact me. The office is [phone]. This note is constructed using voice recognition software. While every effort has been made to ensure accuracy wire rope sling maker errors may have been included. Yours sincerely, SWAPNIL Urbina Coding Level of Care Code Est Pt Level 3 (20343) Diagnoses Microscopic hematuria R31.29 Proteinuria R80.9
== END 2024-02-15 15:19 | disposition home or self-care (01) ==
PROVIDERS: PCP Registered Nurse; Visit Provider Nurse Practitioner Family
DX: R31.29 Other microscopic hematuria (principal); R80.9 Proteinuria, unspecified; Z13.9 Encounter for screening, unspecified
CPT/HCPCS: 99213

== ENCOUNTER → 2024-02-15 14:49 | Outpatient (BNVA) | payer MEDICAID, SELFPAY | PROVIDERS: PCP Registered Nurse; Visit Provider Nurse Practitioner Family | DX: R31.29 Other microscopic hematuria (principal); R80.9 Proteinuria, unspecified | CPT/HCPCS: 81003; 99212 ==

== ENCOUNTER 2024-04-03 08:01 | Emergency (ER) | payer MEDICAID, SELFPAY ==
--- NOTE | ~2024-04-03 | CT_ITS ---
EXAMINATION: CT HEAD WITHOUT CONTRAST CLINICAL INFORMATION: Status post last week with headache COMPARISON: 01/16/2014 TECHNIQUE: Contiguous axial imaging was performed from the skull base to vertex without intravenous administration of contrast. This CT examination was performed using dose optimization techniques as appropriate, variously including the following: *Automated exposure control *Adjustment of mA and/or kV according to patient size (this includes techniques or standardized protocols for targeted exams where dose is matched to indication/reason for exam; i.e. extremities or head) *Use of iterative reconstruction technique DLP: 676 mGy-cm FINDINGS: There is no evidence of intracranial hemorrhage masses or mass effect. There is ill-defined area of low-attenuation in the right occipital lobe number with loss of corticomedullary differentiation, which may be due to localized edema. The area is not associated with adjacent hemorrhage, mass or mass effect. MRI is recommended for confirmation. Ventricles, sulci and cisterns are appropriate for age. There is no hydrocephalus. Evaluation of bone windows reveals no fractures. Paranasal sinuses are well aerated. CT/CT head/brain wo IV con IMPRESSION: Ill-defined area of low-attenuation in the right occipital region with loss of corticomedullary differentiation which may be due to localized edema. MRI is recommended for confirmation.
--- NOTE | ~2024-04-03 | MR_ITS ---
EXAMINATION: MR BRAIN WITHOUT CONTRAST CLINICAL INFORMATION: Cerebral edema on CT scan. Dizziness. COMPARISON: CT head 04/03/2024. TECHNIQUE: MRI of the brain was obtained using routine sequences without contrast. FINDINGS: There is no acute territorial infarct. No pathological magnetic susceptibility artifact. Intracranial vascular flow voids are maintained. There is no intracranial mass effect or midline shift. No abnormal extra-axial collection. Lateral and third ventricles are normal. No hydrocephalus. Midline structures including the cervicomedullary junction are normal. No acute bone marrow signal changes. There is no mastoid middle ear effusion. Mild paranasal sinus disease primarily affecting the ethmoid air cells. Globes and orbits are grossly symmetric. MR/MR head/brain wo con IMPRESSION: Normal brain MRI.
--- NOTE | 2024-04-03 08:03 | ECG_ITS ---
Test Reason : FALL Blood Pressure : / mmHG Vent. Rate : 073 BPM Atrial Rate : 073 BPM P-R Int : 162 ms QRS Dur : 088 ms QT Int : 370 ms P-R-T Axes : 034 060 034 degrees QTc Int : 407 ms Normal sinus rhythm Normal ECG No previous ECGs available Referred By: Delfino Paz Electronically Signed By:MI BEAR MD
--- NOTE | 2024-04-03 08:06 | ED.GENADULT ---
HPI - General Adult General Chief complaint: Fall Stated complaint: FALL 1WK AGODIZZY,KENNEDY,NAUSEA,DX W/MILD CONCUSSION Time Seen by Provider: 04/03/24 08:17 Source: patient and EMS Mode of arrival: EMS Limitations: other (Poor historian) History of Present Illness ED Provider: Vesta GLASGOW HPI narrative: This is an 38-year-old female history of alopecia, hidradenitis, sleep apnea, poor historian, esophagitis, presenting to the emergency department with complaints of headache, sensitivity to light, dizziness(unclear of room spinning or lightheaded), nausea ongoing for an unknown amount of time, patient reports sometime before last Wednesday she had a concussion she was diagnosed with when she says and since then she has not been feeling well. She knows she called out of work on Wednesday but she does not remember exactly when the concussion occurred. She states she fell at that time. Denies any head imaging since the initial injury. Patient states her pain is terrible. Comes in with EMS. Normal neurological assessment for them. Denies chest pain, shortness of breath, fevers, chills, nausea, vomiting, abdominal pain. NIH stroke scale 0 GCS 15 Related Data Home Medications ?Medication ?Instructions ?Recorded ?Confirmed albuterol sulfate 90 mcg/actuation 2 puff inhalation QID PRN 08/07/20 10/20/22 aerosol inhaler Shortness Of Breath mupirocin 2 % topical ointment topical DAILY PRN 10/13/22 10/20/22 betamethasone dipropionate 0.05 % appl topical DAILY 10/20/22 10/20/22 topical cream loratadine 10 mg tablet 10 mg PO DAILY 02/15/24 Allergies Allergy/AdvReac Type Severity Reaction Status Date / Time Codeine Phosphate Allergy Unknown rash Uncoded 04/03/24 08:12 Review of Systems Review of Systems: Yes all other systems are reviewed and are negative PMFSH Past Medical History Attestation statement: The following information was validated with the patient. 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 Oriented X3.? No acute distress.? Head: Normocephalic, atraumatic, no step-offs or deformities Eyes: Pupils equal, round and reactive to light.? ENT: Pharynx normal.? Neck: Normal inspection.? Neck supple.? CVS: Normal heart rate and rhythm.? Pulses normal.? Respiratory: No respiratory distress.? Breath sounds normal.? Abdomen: Soft and nontender.? Skin: Skin warm and dry.? Normal skin color.? Normal skin turgor.? Extremities: No lower extremity edema.? No calf ttp. 5/5 strength to bilateral upper and lower extremities Back: No midline tenderness, no C-spine tenderness, full range of motion, no CVA tenderness bilaterally Neuro: Oriented X 3.? No motor deficit.? No sensory deficit. CN 2-12 intact . Negative Romberg and pronator drift. Normal finger to nose, heel to [place]. Steady tandem gait normal coordination Course Reevaluation(s) Reevaluation #1: CBC unremarkable. Chemistry no acute findings requiring intervention. Beta hCG negative. UA clean. Head CT ill-defined area of low attenuation in the right occipital region with loss of cortical medullary differentiation which may be due to localized edema discuss this case with my attending who recommends MR of the head. Did try to ambulate patient when she sat up she did feel dizzy and she felt very dizzy with ambulation. Neurological assessment nonfocal. Normal cerebellar function. Will continue to monitor. MRI pending Negative orthostats Time: 12:19 Reevaluation #2: Pain better after IM meds. But still dizzy with amabulation Time: 13:50 Reevaluation #3: MRI pending sign out to PEE Gregg Time: 15:37 Medications Administered Discontinued Medications Generic Name Dose Route Start Last Admin Trade Name Chay PRN Reason Stop Dose Admin Ketorolac Tromethamine 15 mg 04/03/24 08:08 04/03/24 09:04 Ketorolac Tromethamine 15 Mg/Ml Vial IM 04/03/24 08:09 15 mg ONCE ONE Administration Medical Decision Making Medical Decision Making [facility] Narrative: 0809 38-year-old female presents status post concussion complaining of nausea, headache, dizziness the past few days. Very poor historian Physical exam benign. Alert and oriented x4. NIH stroke scale 0. GCS 15 History and physical exam concerning for postconcussive syndrome versus migraine versus headache. Unlikely stroke, posterior stroke, intracranial hemorrhage. No signs of traumatic injury to head, neck, chest, abdomen or pelvis. Will rule out metabolic derangements, and orthostatic hypotension Plan labs, imaging, urine Differential Diagnosis Differential Diagnoses: The differential diagnosis associated with the presentation includes History and physical exam concerning for postconcussive syndrome versus migraine versus headache. Unlikely stroke, posterior stroke, intracranial hemorrhage. No signs of traumatic injury to head, neck, chest, abdomen or pelvis. Will rule out metabolic derangements, and orthostatic hypotension Admission/Observation Consideration of admission/observation: Escalation of care including admission/observation considered Possible Lab Data [facility] Lab Attestation statement: I reviewed the patient's lab results. 04/03/24 08:43 04/03/24 08:43 Labs: Lab Results 04/03/24 04/03/24 04/03/24 Range/Units 08:42 08:43 09:39 WBC 6.0 (4.8-10.8) X10*3/uL RBC 4.79 (4.20-5.50) X10*6/uL Hgb 12.8 (12.0-16.0) g/dl Hct 39.7 (37.0-47.0) % MCV 82.9 (80.0-98.0) fL MCH 26.7 L (27.0-33.0) pg MCHC 32.2 (31.0-35.0) g/dl RDW 14.5 (11.0-16.0) % Plt Count 227 (160-400) X10*3/uL MPV 10.9 (9.4-12.3) fL Immature Gran % (Auto) 0.3 (0.0-0.4) % Neut % (Auto) 61.9 (45-73) % Lymph % (Auto) 26.3 (20-40) % Stephens % (Auto) 6.2 (2-11) % Eos % (Auto) 4.3 H (0-4) % Baso % (Auto) 1.0 (0-2) % Lymph # (Auto) 1.6 (1.2-4.9) X10*3/uL Stephens # (Auto) 0.4 (0.1-1.2) X10*3/uL Eos # (Auto) 0.3 (0.0-0.4) X10*3/uL Baso # (Auto) 0.1 (0.0-0.2) X10*3/uL Abs Immat Gran (auto) 0.02 (0.00-0.03) X10*3/uL Absolute Neuts (auto) 3.7 (2.0-8.3) x10*3/uL Absolute Nucleated RBC 0.000 (0.0-0.012) X10*3/uL Nucleated RBC % (auto) 0.0 (0.0-0.2) /100WBC PT 12.9 (11.1-13.3) SEC INR 1.1 (0.9-1.1) Sodium 138 (135-145) mmol/L Potassium 4.1 (3.3-5.1) mmol/L Chloride 109 H (96-108) mmol/L Carbon Dioxide 20 L (22-29) mmol/L Anion Gap 13 (12-20) BUN 9 (9-16) mg/dL Creatinine 0.65 (0.5-1.4) mg/dL Estim Creat Clear Calc 136.3 Estimated GFR > 60 Random Glucose 93 (60-115) mg/dL Calcium 9.2 (8.4-10.2) mg/dL Magnesium 1.9 (1.6-2.6) mg/dL Total Bilirubin 0.4 (0.0-1.0) mg/dL AST 13 (5-31) U/L ALT 13 (0-31) U/L Alkaline Phosphatase 64 (39-117) U/L Troponin I High Sens < 2.7 (<3.5-17.0) ng/L Total Protein 6.8 (6.5-8.0) g/dL Albumin 4.0 (3.5-5.0) g/dL Beta HCG, Quant < 2 mIU/mL Urine Color Yellow Urine Appearance Clear Urine pH 7.5 (5.0-9.0) Ur Specific [place] 1.020 (1.005-1.025) Urine Protein Negative (Neg-Trace) mg/dL Urine Glucose (UA) Negative (Negative) mg/dL Urine Ketones Negative (Negative) mg/dL Urine Blood Negative (Negative) Urine Nitrite Negative (Negative) Ur Leukocyte Esterase Trace H (Negative) Urine RBC 0-2 (0-2) /HPF Urine WBC 0-5 (0-5) /HPF Ur Squamous Epith Cells 0-2 (0-2) /HPF Urine Bacteria None Seen (None Seen) Hyaline Casts 0-2 (0-2) /LPF Independent Interpretation I performed an independent interpretation of an: EKG and CT Scan Radiology Impression Discussion of test interpretation with radiology: I have reviewed the radiologist's reading. External Record Review External record reviewed: Inpatient record, Office record, Outpatient record, Prior outpatient labs, Prior outpatient radiology, Primary care record and Outside ED record Chronic Conditions Patient?s care impacted by: Other (Poor historian, alopecia, hidradenitis, esophagitis, acid reflux) Critical Care Time Critical Care Time Critical Care Time: Yes Total Critical Care Time: 35 Attestation: I attest to this time spent taking care of the patient, obtaining history, physical, reviewing labs, imaging, speaking to my attending, specialist or hospitalist. Discharge Plan Discharge Clinical Impression: Post concussive syndrome Patient Disposition: Home, Self-Care Instructions: Post Concussion Syndrome (ED) Additional Instructions: Take your medications as prescribed. If you were prescribed antibiotics today, it is important that you take your medication to their entirety, do not skip any doses, do not finish them early. Follow-up with your primary care provider this week. Return to the emergency department with new or worsening symptoms. Such as fevers, chills, chest pain, shortness of breath, nausea, vomiting, dizziness, headache, vision changes, lethargy In case of emergency call 911 You can take ibuprofen every 6 hours Tylenol every 4 as needed for pain or discomfort. Prescriptions: No Action albuterol sulfate 90 mcg/actuation Hfa Aerosol Inhaler 2 puff INHALATION QID PRN (Reason: Shortness Of Breath) mupirocin 2 % ointment topical DAILY PRN betamethasone dipropionate 0.05 % cream topical DAILY loratadine 10 mg tablet 10 mg PO DAILY Referrals: [facility] Neuro/Sleep [Provider Group] - 1 day Mariela Roland FNP [Primary Care Provider] - 2 days Print Language: Bengali
[2024-04-03 08:07] VITALS: BP 128/84; PULSE 124; O2SAT 99
[2024-04-03 08:10] VITALS: BP 123/83; PULSE 72; RESP 16; TEMP 36.7; O2SAT 99; BMI 30.4
[2024-04-03 08:43] VITALS: BP 117/67; PULSE 72
[2024-04-03 08:44] VITALS: BP 128/84; PULSE 87
[2024-04-03 08:47] VITALS: BP 121/85; PULSE 89
[2024-04-03 08:48] LABS: MANUAL DIFF FLAG NO
[2024-04-03 08:50] LABS: Basophils Absolute Auto 0.1 X10*3/uL (0.0-0.2); Eosinophils Absolute Auto 0.3 X10*3/uL (0.0-0.4); Eosinophils Percent Auto 4.3 % (0-4); Hematocrit 39.7 % (37.0-47.0); Hemoglobin 12.8 g/dl (12.0-16.0); Imm Gran Abs Auto 0.02 X10*3/uL (0.00-0.03); Imm Gran Pct Auto 0.3 % (0.0-0.4); Lymphocytes Absolute Auto 1.6 X10*3/uL (1.2-4.9); Lymphocytes Percent Auto 26.3 % (20-40); Mean Corpuscular HGB Conc 32.2 g/dl (31.0-35.0); Mean Corpuscular Hemoglobin 26.7 pg (27.0-33.0); Mean Corpuscular Volume 82.9 fL (80.0-98.0); Mean Platelet Volume 10.9 fL (9.4-12.3); Monocytes Absolute Auto 0.4 X10*3/uL (0.1-1.2); Monocytes Percent Auto 6.2 % (2-11); Neutrophils Absolute Auto 3.7 x10*3/uL (2.0-8.3); Neutrophils Percent Auto 61.9 % (45-73); Platelet Count 227 X10*3/uL (160-400); Red Blood Count 4.79 X10*6/uL (4.20-5.50); Red Cell Distribution Width 14.5 % (11.0-16.0)
[2024-04-03 08:56] LABS: INTERNATIONAL NORM RATIO 1.1 (0.9-1.1); Prothrombin Time 12.9 SEC (11.1-13.3)
[2024-04-03] MEDS: Ketorolac Tromethamine 15 MG/ML VIAL IM (09:04)
[2024-04-03 09:15] LABS: Alanine Aminotransferase 13 U/L (0-31); Alkaline Phosphatase 64 U/L (39-117); Anion Gap 13 (12-20); Aspartate Amino Transferase 13 U/L (5-31); Bilirubin Total 0.4 mg/dL (0.0-1.0); Blood Urea Nitrogen 9 mg/dL (9-16); Calcium 9.2 mg/dL (8.4-10.2); Carbon Dioxide 20 mmol/L (22-29); Chloride 109 mmol/L (96-108); Creatinine Clr Calc Pharmacy 136.3; Estimated Glomerular Filt Rate > 60; Glucose Random 93 mg/dL (60-115); Magnesium 1.9 mg/dL (1.6-2.6); Potassium 4.1 mmol/L (3.3-5.1); Sodium 138 mmol/L (135-145); Total Protein 6.8 g/dL (6.5-8.0)
[2024-04-03 09:20] LABS: HCG Quantitative < 2 mIU/mL
[2024-04-03 09:20] LABS: Troponin-I High Sensitivity < 2.7 ng/L (<3.5-17.0)
[2024-04-03 09:46] LABS: Appearance Urine Clear; Color Urine Yellow; Glucose Urine UA Negative (Negative); Leukocyte Esterase Urine Trace (Negative); Nitrite Urine Negative (Negative); PH 7.5 (5.0-9.0); UMIC TRIGGER UACC YES; Urine Blood Negative (Negative); Urine Ketones Negative (Negative); Urine Protein Negative (Neg-Trace)
[2024-04-03 09:51] LABS: Bacteria Urine None Seen (None Seen); Hyaline Casts Urine 0-2 /LPF (0-2); RBC Urine 0-2 /HPF (0-2); Squamous Epithelial Cell Urine 0-2 /HPF (0-2); WBC Urine 0-5 /HPF (0-5)
[2024-04-03 18:05] VITALS: BP 108/88; PULSE 74; RESP 14; TEMP 37.1; O2SAT 98
== END 2024-04-03 18:07 | disposition home or self-care (01) ==
PROVIDERS: Physician Assistant; Emergency Provider Emergency Medicine; PCP Registered Nurse
DX: S06.0X0A Concussion without loss of consciousness, initial encounter (principal); R42 Dizziness and giddiness; R51.9 Headache, unspecified; R11.0 Nausea; R07.81 Pleurodynia; X58.XXXA Exposure to other specified factors, initial encounter; Y93.9 Activity, unspecified; Y92.9 Unspecified place or not applicable; Y99.8 Other external cause status; Z79.899 Other long term (current) drug therapy
CPT/HCPCS: 36415; 70450; 70551; 80053; 81001; 83735; 84484; 84702; 85025; 85610; 93005; 96372; 99285; J1885

== ENCOUNTER → 2024-04-03 08:03 | Outpatient (BNV) | payer MEDICAID, SELFPAY | PROVIDERS: Emergency Provider Emergency Medicine; PCP Registered Nurse; Visit Provider Internal Medicine Cardiovascular Disease | DX: R55 Syncope and collapse (principal) | CPT/HCPCS: 93010 ==

== ENCOUNTER 2024-04-06 10:38 | Outpatient (AMB) | payer MEDICAID, SELFPAY ==
--- NOTE | 2024-04-06 10:40 | MHC.OFFVIS ---
Vital Signs 04/06/24 10:50 Height 5 ft 7 in Weight 188 lb BMI 29.4 BP 125/57 L Blood Pressure Location Lt brachial Position Sitting Pulse 101 H Intake Visit Reasons: Hidradenitis suppurativa flare-up *FM Pt Intake Note: Patient is seen in office for evaluation and treatment of hidradenitis suppurativa flare up. Pt c/o: right groin area, onset one year, recent flare up started a week ago, redness, discharge, not taking antibiotics, would like to have surgically removed, needs a refill on the ointment and would like to try other methods to help minimize the flare ups Container Shop Welder Required: No Supervisor Compounding And Finishing: Supervisor Compounding And Finishing Present Accompanied by: Self / Same As Patient Allergies Codeine Phosphate Allergy (Unknown, Uncoded 04/06/24 10:47) rash Medication List - Last Reconciled 04/06/24 by Darrick Carlton MD albuterol sulfate 90 mcg/actuation 2 puffs inhalation QID PRN loratadine 10 mg PO DAILY mupirocin 2% topical DAILY PRN HPI Comments Details: 38-year-old female patient presenting for evaluation of a right inguinal hidradenitis. She reports a previous history of left axillary hidradenitis excised by Dr. Haines and left inguinal hidradenitis excised by Dr. West. This current episode began several months ago and is increased in severity over the past week. She has persistent pain and discharge from the same site. She denies fever, chills, nausea or vomiting. She denies previous surgical procedures in this location. She would like to have the lesion excised to prevent further infections. [facility] Medical History Aerophagia Epidermal cyst Acid reflux Hydradenitis Asthma Surgical History History of incision and drainage Social History Household Members Other:: Lives alone no children Second Hand Smoke Exposure: No Current occupational status: employed Current occupation: [employer] Review of Systems Const All systems reviewed & are unremarkable except as noted in HPI and below Physical Exam Const General: cooperative and no acute distress Nutritional Appearance: well nourished Orientation/consciousness: patient oriented x3 Limitations: no limitations HEENT Head: Yes normocephalic and Yes atraumatic Ears: hearing grossly normal bilaterally Resp Effort & Inspection: normal respiratory effort, no audible wheezes, no cough and no respiratory distress Cardio Jugular venous distension: no JVD GI Inspection: Yes normal to inspection Abdomen image: 1. Site of redness and discharge right groin measuring approximately 2 cm, tender to palpation. No undrained abscess is appreciated. Findings are most consistent with hidradenitis. Skin Other: Warm, dry, no rash Neuro General: patient oriented x3 Extrem General: Yes no clubbing, cyanosis or edema Assessment & Plan Assessment & Plan (1) Hydradenitis: Code(s): L73.2 - Hidradenitis suppurativa Category: Medical Plan 38-year-old female patient with a new area of hidradenitis involving the right groin. I recommended a wide excision as a short-stay surgery and after discussion of the procedure, risks, and alternatives, she consents to the procedure. She is requested MAC anesthesia. Coding Level of Care Code New Pt Level 4 (97924) Diagnoses Hydradenitis L73.2
[2024-04-06 10:50] VITALS: BP 125/57; PULSE 101; BMI 29.4
== END 2024-04-06 11:00 | disposition home or self-care (01) ==
PROVIDERS: PCP Registered Nurse; Visit Provider Surgery
DX: L73.2 Hidradenitis suppurativa (principal)
CPT/HCPCS: 99204

== ENCOUNTER → 2024-04-06 10:38 | Outpatient (BNVA) | payer MEDICAID, SELFPAY | PROVIDERS: PCP Registered Nurse; Visit Provider Surgery | DX: L73.2 Hidradenitis suppurativa (principal) | CPT/HCPCS: 99202 ==

== ENCOUNTER 2024-04-26 07:48 | Day surgery (SDC) | payer MEDICAID, SELFPAY ==
[2024-04-19 14:22] VITALS: BMI 29.1
[2024-04-26 08:38] VITALS: BP 123/71; PULSE 71; RESP 16; TEMP 36.4; O2SAT 96; BMI 29.3
[2024-04-26 08:41] LABS: UPreg QC Valid YES; Urine Pregnancy NEGATIVE (NEGATIVE)
[2024-04-26] MEDS: Lactated Ringers 1,000 ML 100 ML IVCONT (09:02)
--- NOTE | 2024-04-26 11:10 | MHC.SHP ---
Pre-Procedural Eval Section A - 24 Hr Update-Section A only Date of Service: 04/26/24 The patient is an INPATIENT: No Changes since office visit: Yes Patient answered all questions; No Cold of Flu in the past 2 weeks, No New Medical Problems and No Changes in Medication The patient has been examined within 24 hours of the surgical procedure. The History & Physical has been completed within 30 days and I have reviewed it.: Yes Section B - Complete if H&P > 30 days Chief Complaint: Hidradenitis suppurativa Allergies: Allergies Allergy/AdvReac Type Severity Reaction Status Date / Time Codeine Phosphate Allergy Unknown rash Uncoded 04/06/24 10:47 Plan Diagnosis/Plan: Unchanged I have reviewed the history and physical and performed a pertinent physical examination on my patient. No changes have occurred unless specified. Time Spent With Patient Time: Total time managing care of this patient today ____ minutes.
--- NOTE | 2024-04-26 11:15 | HO.ANESPROP2 ---
Documented by User: Jyotsna Lyons NP 04/24/24 14:45 HPI - Anesthesia Eval Consult details Narrative: 38yo F for Right Wide Excision Hidradenitis Groin Head injury ~ 03/31/24. No acute pathology per ED doc/testing. Post concussive syndrome resolved per RN phone assessment. [facility] Active Problems Active Problems: All Active Problems Proteinuria (Acute) Alopecia areata (Acute) Yeast infection involving the vagina and surrounding area (Acute) Microscopic hematuria (Acute) Complex ovarian cyst (Acute) Dyspareunia (Acute) Sleep apnea (Acute) Poor historian (Acute) Poor historian (Acute) Esophagitis (Acute) Hydradenitis (Acute) Aerophagia (Acute) Epidermal cyst (Acute) Acid reflux (Acute) Past Medical History Medical History (Updated 04/19/24 @ 14:13 by Lilly Goss RN) GERD (gastroesophageal reflux disease) Gestational diabetes Habitual snoring Aerophagia Epidermal cyst Acid reflux Hydradenitis Asthma Surgical History Surgical History (Updated 04/19/24 @ 14:13 by Lilly Goss RN) History of esophagogastroduodenoscopy (EGD) Hx of section History of incision and drainage Social History Social History Household Members Other:: Lives alone no children Are you a primary career development consultant to a significant other at home: No Do you presently have visiting nurse or other home services: No Patient Tobacco Use Status: Never used Tobacco Second Hand Smoke Exposure: No Use of substances other than those prescribed or required for medical reasons: No Have you been hit, kicked, punched, or otherwise hurt by someone within the past year? If so, by whom?: No Are you DNR?: No Advance Directives: No Advance Directives Information Provided: Yes Advance Directives on File: No Recently lost weight without trying: No Eating poorly because of decreased appetite: No Nutrition Risks: No Nutritional Risk Patient : No : No Poor oral hygiene: No Current occupational status: employed Current occupation: [employer] Allergies Allergy/AdvReac Type Severity Reaction Status Date / Time Codeine Phosphate Allergy Unknown rash Uncoded 04/06/24 10:47 Home Medications ?Medication ?Instructions ?Recorded ?Confirmed ?Last Taken ?Type albuterol sulfate 90 mcg/actuation 2 puff inhalation QID PRN 08/07/20 04/26/24 Unknown History aerosol inhaler Shortness Of Breath mupirocin 2 % topical ointment 1 appl topical DAILY PRN Skin 10/13/22 04/26/24 Unknown History Irritation Exam Height,Weight and Vital Signs: Height 5 ft 7 in Weight 84.368 kg Pertinent Lab Results Pertinent Lab Results: Laboratory Tests 04/03/24 08:43 WBC 6.0 Hgb 12.8 Hct 39.7 Plt Count 227 Sodium 138 Potassium 4.1 Chloride 109 H Carbon Dioxide 20 L BUN 9 Creatinine 0.65 Narrative Narrative: EKG 03/2024 Vent. Rate : 073 BPM Atrial Rate : 073 BPM P-R Int : 162 ms QRS Dur : 088 ms QT Int : 370 ms P-R-T Axes : 034 060 034 degrees QTc Int : 407 ms Normal sinus rhythm Normal ECG No previous ECGs available MR head/brain wo con 03/2024 IMPRESSION: Normal brain MRI. Assessment and Plan Assessment Anesthesia Assessment: Chart Reviewed Documented by User: Ashleigh Arboleda DO 04/26/24 11:20 [facility] Past Medical History Medical History (Updated 04/19/24 @ 14:13 by Lilly Goss RN) GERD (gastroesophageal reflux disease) Gestational diabetes Habitual snoring Aerophagia Epidermal cyst Acid reflux Hydradenitis Asthma Family History Family history of problems with anesthesia: No Surgical History Surgical History (Updated 04/19/24 @ 14:13 by Lilly Goss RN) History of esophagogastroduodenoscopy (EGD) Hx of section History of incision and drainage History of Problems with Anesthesia: No Social History Social History Household Members Other:: Lives alone no children Are you a primary career development consultant to a significant other at home: No Do you presently have visiting nurse or other home services: No Patient Tobacco Use Status: Never used Tobacco Second Hand Smoke Exposure: No Use of substances other than those prescribed or required for medical reasons: No Have you been hit, kicked, punched, or otherwise hurt by someone within the past year? If so, by whom?: No Are you DNR?: No Advance Directives: No Advance Directives Information Provided: Yes Advance Directives on File: No Recently lost weight without trying: No Eating poorly because of decreased appetite: No Nutrition Risks: No Nutritional Risk Patient : No : No Poor oral hygiene: No Current occupational status: employed Current occupation: [employer] Allergies Allergy/AdvReac Type Severity Reaction Status Date / Time Codeine Phosphate Allergy Unknown rash Uncoded 04/06/24 10:47 Home Medications ?Medication ?Instructions ?Recorded ?Confirmed ?Last Taken ?Type albuterol sulfate 90 mcg/actuation 2 puff inhalation QID PRN 08/07/20 04/26/24 Unknown History aerosol inhaler Shortness Of Breath mupirocin 2 % topical ointment 1 appl topical DAILY PRN Skin 10/13/22 04/26/24 Unknown History Irritation Exam Exam Date and Time: April 26, 2024 111 Height,Weight and Vital Signs: Height 5 ft 7 in Weight 84.368 kg Vital Signs Temperature 97.6 F 04/26/24 08:38 Pulse Rate 71 04/26/24 08:38 Respiratory Rate 16 04/26/24 08:38 Blood Pressure 123/71 04/26/24 08:38 Pulse Oximetry 96 04/26/24 08:38 Oxygen Delivery Method Room Air 04/26/24 08:38 Temperature 97.6 F 04/26/24 08:38 Pulse Rate 71 04/26/24 08:38 Respiratory Rate 16 04/26/24 08:38 Blood Pressure 123/71 04/26/24 08:38 Pulse Oximetry 96 04/26/24 08:38 Oxygen Delivery Method Room Air 04/26/24 08:38 Airway Mallampati Class: II TM Dist: >3cm Neck ROM: Full Loose/Missing/Broken Teeth: No (patient denies any loose or broken teeth) Heart: S1S2 Lungs: CTAB Assessment and Plan Assessment Anesthesia Assessment: Anesthesia Plan Discussed and Chart Reviewed Final Anesthetic Review Family History of Problems with Anesthesia: No History of Problems with Anesthesia: No NPO: Yes ASA Class: II Final Preanesthetic Review: No Changes in Pt Med Stat, Meds/Allgs Chart Reviewed, Consent Obtained/Reviewed and Anes Risks/Benef Reviewed Patient Risk: Low Procedure Risk: Low Anesthetic Plan Anesthetic Plan: GA and Agree w/ Assess. and Plan Disposition: Standard PACU
--- NOTE | 2024-04-26 11:55 | P.OP_ITS ---
Operative Note Operative Note Date of Service: 04/26/24 Narrative: Preoperative diagnosis: Hidradenitis right groin Postoperative diagnosis: Same Procedure: Wide excision hidradenitis right groin Surgeon: Darrick Carlton MD Medical Numerical Control Operator: Ania Eugene PA-C Anesthesia: General LMA Indications for procedure: 38-year-old female patient with a prior history of left axillary hidradenitis now presenting with a new area a persistent pain and drainage located in the right groin just lateral to the labia. Operative findings: 5 x 2 cm area of hidradenitis with no evidence of abscess. Hidradenitis extends proximally 2 cm deep to the skin. Specimen: Hidradenitis right groin Estimated blood loss: 2 mL Complications: None Procedure details: Patient was brought to the OR placed in a supine position. After administering general anesthesia she was placed in a frog-leg position. A surgical time-out was called the consent confirmed. She received preoperative antibiotics and Venodyne boots were in place. Perineum was prepped with Betadine and draped in a sterile fashion. Local anesthesia was infiltrated around the area of hidradenitis in the right groin. An elliptical incision was then created to incorporate the entire area of infection. This was carried out through subcutaneous tissue and around the lesion. Hemostasis was assured using electrocautery. Specimen was passed off table and sent to pathology for further examination. Wounds were irrigated with saline solution and suctioned dry. Subcutaneous tissue and dermis were reapproximated using interrupted 3-0 Polysorb sutures. Skin was then closed using interrupted 4-0 nylon sutures. Sterile dressings consisting of ABD pad was then applied. The patient tolerated the procedure well. Sponge, instrument, and needle counts reported as correct. The patient was transferred to PACU in stable condition.
[2024-04-26 12:15] VITALS: BP 123/71; PULSE 80; RESP 16; TEMP 36.6; O2SAT 96
[2024-04-26 12:20] VITALS: BP 116/84; PULSE 82; RESP 16; O2SAT 97
[2024-04-26 12:25] VITALS: BP 121/79; PULSE 68; RESP 18; O2SAT 96
[2024-04-26 12:30] VITALS: BP 108/68; PULSE 61; RESP 18; TEMP 36.6; O2SAT 98
== END 2024-04-26 13:10 | disposition home or self-care (01) ==
PROVIDERS: Nurse Practitioner; PCP Registered Nurse; Visit Provider Surgery
PROC: (CPT 11462; principal; 2024-04-26 10:30)
DX: L73.2 Hidradenitis suppurativa (principal); J45.909 Unspecified asthma, uncomplicated; F40.228 Other natural environment type phobia; K21.9 Gastro-esophageal reflux disease without esophagitis; Z79.899 Other long term (current) drug therapy; Z88.5 Allergy status to narcotic agent
CPT/HCPCS: 11462; 81025; 88304; 88305; J0131; J0690; J1100; J1885; J2250; J2405; J2704; J2795; J3010

== ENCOUNTER → 2024-04-26 07:48 | Outpatient (BNV) | payer MEDICAID, SELFPAY | PROVIDERS: PCP Registered Nurse; Visit Provider Surgery | DX: L73.2 Hidradenitis suppurativa (principal) | CPT/HCPCS: 11462 ==

== ENCOUNTER 2024-05-01 10:50 | Outpatient (REF) | payer MEDICAID, SELFPAY ==
[2024-05-01 13:16] LABS: MANUAL DIFF FLAG NO
[2024-05-01 13:28] LABS: Basophils Absolute Auto 0.1 X10*3/uL (0.0-0.2); Eosinophils Absolute Auto 0.4 X10*3/uL (0.0-0.4); Eosinophils Percent Auto 6.7 % (0-4); Hematocrit 40.1 % (37.0-47.0); Hemoglobin 12.8 g/dl (12.0-16.0); Imm Gran Abs Auto 0.02 X10*3/uL (0.00-0.03); Imm Gran Pct Auto 0.3 % (0.0-0.4); Lymphocytes Percent Auto 34.3 % (20-40); Mean Corpuscular HGB Conc 31.9 g/dl (31.0-35.0); Mean Corpuscular Hemoglobin 27.2 pg (27.0-33.0); Mean Corpuscular Volume 85.3 fL (80.0-98.0); Mean Platelet Volume 11.7 fL (9.4-12.3); Monocytes Absolute Auto 0.5 X10*3/uL (0.1-1.2); Monocytes Percent Auto 7.7 % (2-11); Platelet Count 269 X10*3/uL (160-400); Red Cell Distribution Width 14.1 % (11.0-16.0); White Blood Count 5.9 X10*3/uL (4.8-10.8)
[2024-05-01 13:54] LABS: Alanine Aminotransferase 28 U/L (0-31); Albumin Level 4.3 g/dL (3.5-5.0); Alkaline Phosphatase 62 U/L (39-117); Anion Gap 12 (12-20); Aspartate Amino Transferase 22 U/L (5-31); Bilirubin Total 0.3 mg/dL (0.0-1.0); Blood Urea Nitrogen 8 mg/dL (9-16); Calcium 9.1 mg/dL (8.4-10.2); Carbon Dioxide 22 mmol/L (22-29); Chloride 106 mmol/L (96-108); Estimated Glomerular Filt Rate > 60; Glucose Random 94 mg/dL (60-115); Iron 94 mcg/dL (30-160); Percent Iron Saturation 29 % (15-50); Sodium 136 mmol/L (135-145); Total Iron Binding Capacity 320 mcg/dL (228-428); Unsaturated Iron Binding 226 ug/dL
[2024-05-01 13:55] LABS: Ferritin 27 ng/mL (10-122); Vitamin D 25-OH Total 32.5 ng/mL (>30)
== END 2024-05-01 10:51 | disposition home or self-care (01) ==
LOC: HO.HHCL 10:50
PROVIDERS: Referring Provider Nurse Practitioner Family; Visit Provider Registered Nurse
DX: Z00.00 Encounter for general adult medical examination without abnormal findings (principal); E55.9 Vitamin D deficiency, unspecified; K92.1 Melena; D64.9 Anemia, unspecified; R10.13 Epigastric pain
CPT/HCPCS: 36415; 80053; 82306; 82728; 83540; 85025

== ENCOUNTER 2024-05-05 10:37 | Outpatient (AMB) | payer MEDICAID, SELFPAY ==
--- NOTE | 2024-05-05 10:38 | MHC.OFFVIS ---
Vital Signs 05/05/24 10:39 Height 5 ft 7 in Weight 189 lb BMI 29.6 BP 136/74 Blood Pressure Location Lt brachial Position Sitting Pulse 81 Intake Visit Reasons: S/P wide excision hidradenitis Right groin Intake Note: Patient is seen in office for post op assessment post wide excision hidradenitis right groin. Pt c/o: denies any concerns healing as expected Op: 04/26/24 Asset Manager Required: No Accompanied by: Self / Same As Patient Allergies Codeine Phosphate Allergy (Unknown, Uncoded 05/05/24 10:39) rash HPI Comments Details: 38-year-old female patient presenting for evaluation of a right inguinal hidradenitis. She reports a previous history of left axillary hidradenitis excised by Dr. Haines and left inguinal hidradenitis excised by Dr. West. This current episode began several months ago. She underwent excision of the right groin hidradenitis on 04/26/2024 and returns today for wound check. She denies any problems after the surgery and generally feels well. She reports no bleeding or pain. [facility] Medical History GERD (gastroesophageal reflux disease) Gestational diabetes Habitual snoring Aerophagia Epidermal cyst Acid reflux Hydradenitis Asthma Surgical History History of surgery (04/26/24) History of esophagogastroduodenoscopy (EGD) Hx of section History of incision and drainage Social History Household Members Other:: Lives alone no children Are you a primary director career services to a significant other at home: No Do you presently have visiting nurse or other home services: No Patient Tobacco Use Status: Never used Tobacco Second Hand Smoke Exposure: No Current occupational status: employed Current occupation: [employer] Physical Exam Const General: cooperative and no acute distress Nutritional Appearance: well nourished Limitations: no limitations Resp Effort & Inspection: normal respiratory effort, no audible wheezes, no cough and no respiratory distress GI Other: Right groin wounds are clean and intact. Sutures removed and wounds found to be well healed. Inspection: Yes normal to inspection Skin Other: Warm, dry, no rash Extrem General: Yes no clubbing, cyanosis or edema Assessment & Plan Assessment & Plan (1) Hydradenitis: Code(s): L73.2 - Hidradenitis suppurativa Category: Medical Plan Patient returns 1 week following excision of hidradenitis status of the right groin. She tolerated the procedure well and her wounds are healing nicely. Sutures removed today and the wounds found to be well healed. She should follow up as needed. Coding Level of Care Code Global (33141) Diagnoses Hydradenitis L73.2
[2024-05-05 10:39] VITALS: BP 136/74; PULSE 81; BMI 29.6
== END 2024-05-05 10:53 | disposition home or self-care (01) ==
PROVIDERS: PCP Registered Nurse; Visit Provider Surgery
DX: L73.2 Hidradenitis suppurativa (principal)
CPT/HCPCS: 99024

== ENCOUNTER → 2024-05-05 10:37 | Outpatient (BNVA) | payer MEDICAID, SELFPAY | PROVIDERS: PCP Registered Nurse; Visit Provider Surgery | DX: L73.2 Hidradenitis suppurativa (principal) | CPT/HCPCS: 99212 ==

== ENCOUNTER 2024-07-14 09:10 | Outpatient (AMB) | payer MEDICAID, SELFPAY ==
--- NOTE | 2024-07-14 09:18 | A.OFFVIS_ITS ---
Vital Signs 3 07/14/24 09:30 Height 5 ft 7 in Weight 183 lb BMI 28.7 BP 117/70 Blood Pressure Location Lt brachial Position Sitting Pulse 82 Intake Visit Reasons: hidradenitis of right groin Intake Note: Patient is seen in office for recurrent hidradenitis of the right groin. Pt c/o: onset months, same area as last time, different spot, admits to redness, pain, denies discharge, warm to the touch Community Leader Required: No Accompanied by: Self / Same As Patient Allergies Codeine Phosphate Allergy (Unknown, Uncoded 07/14/24 09:20) rash HPI Comments Details: 38-year-old female patient presenting for evaluation of a right inguinal hidradenitis. She reports a previous history of left axillary hidradenitis excised by Dr. Haines and left inguinal hidradenitis excised by Dr. West. This current episode began several months ago. She underwent excision of the right groin hidradenitis on 04/26/2024 and returns today for wound check. She denies any problems after the surgery and generally feels well. She reports no bleeding or pain. [facility] Medical History GERD (gastroesophageal reflux disease) Gestational diabetes Habitual snoring Aerophagia Epidermal cyst Acid reflux Hydradenitis Asthma Surgical History History of surgery (04/26/24) History of esophagogastroduodenoscopy (EGD) Hx of section History of incision and drainage Social History Household Members Other:: Lives alone no children Are you a primary care management associate to a significant other at home: No Do you presently have visiting nurse or other home services: No Patient Tobacco Use Status: Never used Tobacco Second Hand Smoke Exposure: No Current occupational status: employed Current occupation: [employer] Review of Systems Const All systems reviewed & are unremarkable except as noted in HPI and below Physical Exam Const General: cooperative and no acute distress Nutritional Appearance: well nourished Orientation/consciousness: patient oriented x3 Limitations: no limitations HEENT Head: Yes normocephalic and Yes atraumatic Ears: hearing grossly normal bilaterally Resp Effort & Inspection: normal respiratory effort, no audible wheezes, no cough and no respiratory distress Cardio Jugular venous distension: no JVD GI Inspection: Yes normal to inspection Abdomen image: 2 1. low in right groin almost towards the right buttock, with a 2 cm area of inflammation suggestive of hidradenitis verses thrombosed varix. Site is tender to palpation. No fluctuance to indicate underlying abscess. Skin Other: Warm, dry, no rash Neuro General: patient oriented x3 Extrem General: Yes no clubbing, cyanosis or edema Upper/lower leg/hip images: 2 1. Site of palpable lesion as noted above Assessment & Plan Assessment & Plan (1) Hydradenitis: Code(s): L73.2 - Hidradenitis suppurativa Category: Medical Plan 38-year-old female patient with prior history of right inguinal hidradenitis now presenting with an area slightly lower heading towards the right buttock which is also hard and painful to the touch. Area measures approximately 2 cm in diameter and appears consistent with hidradenitis verses thrombosed varix. Patient has requested excision of this painful lesion. I am uncertain if this should be approached through the supine or prone position given its location, but may be best approached through the prone position. After discussion of the procedure, risks, and alternatives, she consents to excision of the right groin hidradenitis as a short-stay surgery. Coding Level of Care Code Est Pt Level 4 (71103) Diagnoses Hydradenitis L73.2
[2024-07-14 09:30] VITALS: BP 117/70; PULSE 82; BMI 28.7
== END 2024-07-14 09:52 | disposition home or self-care (01) ==
PROVIDERS: PCP Registered Nurse; Visit Provider Surgery
DX: L73.2 Hidradenitis suppurativa (principal)
CPT/HCPCS: 99214

== ENCOUNTER → 2024-07-14 09:10 | Outpatient (BNVA) | payer MEDICAID, SELFPAY | PROVIDERS: PCP Registered Nurse; Visit Provider Surgery | DX: L73.2 Hidradenitis suppurativa (principal) | CPT/HCPCS: 99212 ==

== ENCOUNTER 2024-08-04 10:32 | Day surgery (SDC) | payer MEDICAID, SELFPAY ==
[2024-08-02 12:24] VITALS: BMI 28.7
--- NOTE | 2024-08-03 10:05 | HO.ANESPROP2 ---
Documented by User: Jyotsna Lyons NP 08/03/24 10:06 HPI - Anesthesia Eval Consult details Narrative: 38yo F for Right Excision Hidradenitis groin s/p same 04/2024 with GA-LMA 4 PMFSH Active Problems Active Problems: All Active Problems Proteinuria (Acute) Alopecia areata (Acute) Yeast infection involving the vagina and surrounding area (Acute) Microscopic hematuria (Acute) Complex ovarian cyst (Acute) Dyspareunia (Acute) Sleep apnea (Acute) Poor historian (Acute) Poor historian (Acute) Esophagitis (Acute) Hydradenitis (Acute) Aerophagia (Acute) Epidermal cyst (Acute) Acid reflux (Acute) Past Medical History Medical History GERD (gastroesophageal reflux disease) Gestational diabetes Habitual snoring Aerophagia Epidermal cyst Acid reflux Hydradenitis Asthma Family History Family history of problems with anesthesia: No Surgical History Surgical History (Updated 08/02/24 @ 12:24 by Sera Nolen RN) History of surgery (04/26/24) History of esophagogastroduodenoscopy (EGD) Hx of section History of incision and drainage History of Problems with Anesthesia: No Social History Social History Household Members Other:: Lives alone no children Are you a primary physician primary care sports medicine to a significant other at home: Yes Do you presently have visiting nurse or other home services: No Patient Tobacco Use Status: Never used Tobacco Second Hand Smoke Exposure: No Use of substances other than those prescribed or required for medical reasons: No Have you been hit, kicked, punched, or otherwise hurt by someone within the past year? If so, by whom?: No Are you DNR?: No Advance Directives: No Advance Directives Information Provided: Yes (Mother- Lynda Quezada [phone]) Advance Directives on File: No Recently lost weight without trying: No How much weight loss: Not applicable Eating poorly because of decreased appetite: No Nutrition screen score: 0 Nutrition Risks: No Nutritional Risk Patient : No : No Poor oral hygiene: No Current occupational status: employed Current occupation: [employer] Allergies Allergy/AdvReac Type Severity Reaction Status Date / Time No Known Allergies Allergy Verified 08/04/24 10:48 Home Medications ?Medication ?Instructions ?Recorded ?Confirmed ?Last Taken ?Type albuterol sulfate 90 mcg/actuation 2 puff inhalation QID PRN 08/07/20 08/02/24 Unknown History aerosol inhaler Shortness Of Breath ferrous sulfate 325 mg (65 mg 325 mg PO QAM 07/14/24 Unknown History iron) tablet Exam Height,Weight and Vital Signs: Height 5 ft 7 in Weight 83.007 kg Pertinent Lab Results Pertinent Lab Results: Laboratory Tests 05/01/24 10:56 WBC 5.9 Hgb 12.8 Hct 40.1 Plt Count 269 Sodium 136 Potassium 4.0 Chloride 106 Carbon Dioxide 22 BUN 8 L Creatinine 0.77 Narrative Narrative: EKG 03/2024 Vent. Rate : 073 BPM Atrial Rate : 073 BPM P-R Int : 162 ms QRS Dur : 088 ms QT Int : 370 ms P-R-T Axes : 034 060 034 degrees QTc Int : 407 ms Normal sinus rhythm Normal ECG No previous ECGs available MR head/brain wo con 03/2024 IMPRESSION: Normal brain MRI. Assessment and Plan Assessment Anesthesia Assessment: Chart Reviewed Final Anesthetic Review Family History of Problems with Anesthesia: No History of Problems with Anesthesia: No Documented by User: Mary Brand MD 08/04/24 12:08 [facility] Past Medical History Medical History GERD (gastroesophageal reflux disease) Gestational diabetes Habitual snoring Aerophagia Epidermal cyst Acid reflux Hydradenitis Asthma Surgical History Surgical History (Updated 08/02/24 @ 12:24 by Sera Nolen RN) History of surgery (04/26/24) History of esophagogastroduodenoscopy (EGD) Hx of section History of incision and drainage Social History Social History Household Members Other:: Lives alone no children Are you a primary physician primary care sports medicine to a significant other at home: Yes Do you presently have visiting nurse or other home services: No Patient Tobacco Use Status: Never used Tobacco Second Hand Smoke Exposure: No Use of substances other than those prescribed or required for medical reasons: No Have you been hit, kicked, punched, or otherwise hurt by someone within the past year? If so, by whom?: No Are you DNR?: No Advance Directives: No Advance Directives Information Provided: Yes (Mother- Lynda Quezada [phone]) Advance Directives on File: No Recently lost weight without trying: No How much weight loss: Not applicable Eating poorly because of decreased appetite: No Nutrition screen score: 0 Nutrition Risks: No Nutritional Risk Patient : No : No Poor oral hygiene: No Current occupational status: employed Current occupation: [employer] Allergies Allergy/AdvReac Type Severity Reaction Status Date / Time No Known Allergies Allergy Verified 08/04/24 10:48 Home Medications ?Medication ?Instructions ?Recorded ?Confirmed ?Last Taken ?Type albuterol sulfate 90 mcg/actuation 2 puff inhalation QID PRN 08/07/20 08/02/24 Unknown History aerosol inhaler Shortness Of Breath ferrous sulfate 325 mg (65 mg 325 mg PO QAM 07/14/24 Unknown History iron) tablet Exam Airway Mallampati Class: II TM Dist: >3cm Neck ROM: Full Assessment and Plan Assessment Anesthesia Assessment: Anesthesia Plan Discussed Final Anesthetic Review NPO: Yes ASA Class: II Final Preanesthetic Review: No Changes in Pt Med Stat, Meds/Allgs Chart Reviewed, Consent Obtained/Reviewed and Anes Risks/Benef Reviewed Patient Risk: Low Procedure Risk: Low Anesthetic Plan Anesthetic Plan: GA Disposition: Standard PACU
[2024-08-04 10:52] VITALS: BP 115/72; PULSE 85; RESP 16; TEMP 36.7; O2SAT 100; BMI 28.4
[2024-08-04 11:19] LABS: UPreg QC Valid YES; Urine Pregnancy NEGATIVE (NEGATIVE)
[2024-08-04] MEDS: Lactated Ringers 1,000 ML 100 ML IVCONT (11:25)
--- NOTE | 2024-08-04 12:05 | MHC.SHP ---
Pre-Procedural Eval Section A - 24 Hr Update-Section A only Date of Service: 08/04/24 The patient is an INPATIENT: No Changes since office visit: Yes Patient answered all questions; No Cold of Flu in the past 2 weeks, No New Medical Problems and No Changes in Medication The patient has been examined within 24 hours of the surgical procedure. The History & Physical has been completed within 30 days and I have reviewed it.: Yes Section B - Complete if H&P > 30 days Chief Complaint: Hidradenitis suppurativa Allergies: Allergies Allergy/AdvReac Type Severity Reaction Status Date / Time No Known Allergies Allergy Verified 08/04/24 10:48 Plan Diagnosis/Plan: Unchanged I have reviewed the history and physical and performed a pertinent physical examination on my patient. No changes have occurred unless specified. Time Spent With Patient Time: Total time managing care of this patient today ____ minutes.
--- NOTE | 2024-08-04 12:55 | W.PM.OPN ---
Operative Note Operative Note Date of Service: 08/04/24 Narrative: Preoperative diagnosis: Hidradenitis right groin Postoperative diagnosis: Same Procedure: Excision of hidradenitis right groin Surgeon: Darrick Carlton MD Aircraft De Icer Installer: None Anesthesia: General LMA Indications for procedure: 38-year-old female patient with a prior history of hidradenitis of the groin now presenting with a new area in the lower right groin towards the upper inner thigh. Patient was noted to have 2 areas in this location requested both to be excised due to persistent infections. Operative findings: 2 areas of hidradenitis upper inner thigh, right groin each measuring 1.5 cm in diameter. Specimen: Hidradenitis x2 right groin Estimated blood loss: 5 mL Complications: None Procedure details: Patient was brought to the OR and placed in a supine position. After administering general anesthesia the patient was placed in a frog-leg position. The patient's perineum was prepped with Betadine and draped in a sterile fashion. A surgical time-out was called the consent confirmed. Patient received preoperative antibiotics and Venodyne boots were in place. Local anesthesia consisting of 0.5% Sensorcaine was then infiltrated circumferentially around the 2 cysts in the right upper inner thigh, right groin. An elliptical incision was then created around the upper lesion and carried out through subcutaneous tissue and around the cyst wall. This was passed off the table and sent to pathology for further examination. Hemostasis was assured using electrocautery. Attention was then directed to the 2nd lesion which is slightly more posterior again an elliptical incision was created around the lesion and carried out through subcutaneous tissue and around the cyst wall. Hemostasis was assured using electrocautery. The cyst was passed off the table and sent to pathology for further examination. The wounds were then irrigated with saline solution and suctioned dry. Wounds were again checked for hemostasis. Skin was then closed using interrupted 4-0 nylon sutures. Sterile dressings consisting of 4 x 4 gauze and tape was then applied. The patient tolerated the procedure well. Sponge, instrument, and needle counts reported as correct. The patient was transferred to PACU in stable condition.
[2024-08-04 13:04] VITALS: BP 124/76; PULSE 66; RESP 16; TEMP 36.4; O2SAT 100
[2024-08-04 13:09] VITALS: BP 115/74; PULSE 68; RESP 16; O2SAT 100
[2024-08-04] MEDS: fentaNYL citrate/PF 100 MCG/2 ML VIAL 50 MCG IVPUSH (13:09)
[2024-08-04 13:14] VITALS: BP 109/71; PULSE 64; RESP 16; O2SAT 98
[2024-08-04 13:19] VITALS: BP 113/72; PULSE 66; RESP 16; O2SAT 98
[2024-08-04 13:34] VITALS: BP 117/60; PULSE 63; RESP 16; TEMP 36.4; O2SAT 100
== END 2024-08-04 13:47 | disposition home or self-care (01) ==
PROVIDERS: Nurse Practitioner; PCP Registered Nurse; Visit Provider Surgery
PROC: (CPT 11462; principal; 2024-08-04 12:00)
DX: L73.2 Hidradenitis suppurativa (principal); J45.909 Unspecified asthma, uncomplicated; F40.228 Other natural environment type phobia; K21.9 Gastro-esophageal reflux disease without esophagitis; Z98.890 Other specified postprocedural states; Z79.899 Other long term (current) drug therapy
CPT/HCPCS: 11462; 81025; 88304; J0131; J0690; J1100; J1885; J2003; J2250; J2405; J2704; J2795; J3010

== ENCOUNTER → 2024-08-04 10:32 | Outpatient (BNV) | payer MEDICAID, SELFPAY | PROVIDERS: PCP Registered Nurse; Visit Provider Surgery | DX: L72.0 Epidermal cyst (principal) | CPT/HCPCS: 11462 ==

== ENCOUNTER 2024-08-11 09:09 | Outpatient (AMB) | payer MEDICAID, SELFPAY ==
--- NOTE | 2024-08-11 09:09 | MHC.OFFVIS ---
Vital Signs 08/11/24 09:22 Height 5 ft 7 in Weight 181 lb 6.341 oz BMI 28.4 BP 113/64 Blood Pressure Location Lt brachial Position Sitting Pulse 92 Intake Visit Reasons: s/p excision Hidradenitis rt groin Intake Note: Patient is seen in office for post op assessment post excision of hidradenitis of the right groin. Pt c/o: denies any concerns Field Account Manager Required: No Immigration Case Worker: Immigration Case Worker Present Accompanied by: Self / Same As Patient Allergies No Known Allergies Allergy (Verified 08/11/24 09:23) HPI Comments Details: 38-year-old female patient returning following excision of 2 epidermal inclusion cyst of the right groin. Pathology revealed epidermal inclusion cyst with abscess formation. She tolerated the procedure well and denies any ongoing symptoms at this time. She returns today for suture removal. [facility] Medical History GERD (gastroesophageal reflux disease) Gestational diabetes Habitual snoring Aerophagia Epidermal cyst Acid reflux Hydradenitis Asthma Surgical History (Updated 08/02/24 @ 12:24 by Sera Nolen RN) History of surgery (04/26/24) History of esophagogastroduodenoscopy (EGD) Hx of section History of incision and drainage Social History Household Members Other:: Lives alone no children Are you a primary critical care technician to a significant other at home: Yes Do you presently have visiting nurse or other home services: No Patient Tobacco Use Status: Never used Tobacco Second Hand Smoke Exposure: No Current occupational status: employed Current occupation: [employer] Physical Exam Const General: no acute distress Nutritional Appearance: well nourished Orientation/consciousness: patient oriented x3 GI Inspection: Yes normal to inspection Skin Other: Excision site in the right upper inner thigh/right groin is clean and intact. Sutures removed and Steri-Strips applied. Neuro General: patient oriented x3 Assessment & Plan Assessment & Plan (1) Epidermal cyst: Code(s): L72.0 - Epidermal cyst Category: Medical Plan 38-year-old female patient status post excision of an epidermal inclusion cyst x2 of the right groin. She also has a new cyst developing in the left axilla which is causing pain and appears also to be an epidermal inclusion cyst. I recommended starting oral antibiotics with follow-up as necessary. Medications: New cephalexin 500 mg PO Q8H 10 days 30 caps 0RF Coding Level of Care Code Global (83865) Diagnoses Epidermal cyst L72.0
[2024-08-11 09:22] VITALS: BP 113/64; PULSE 92; BMI 28.4
== END 2024-08-11 09:24 | disposition home or self-care (01) ==
LOC: HO.HGS 09:09
PROVIDERS: PCP Registered Nurse; Visit Provider Surgery
DX: L72.0 Epidermal cyst (principal)
CPT/HCPCS: 99024

== ENCOUNTER → 2024-08-11 09:09 | Outpatient (BNVA) | payer MEDICAID, SELFPAY | PROVIDERS: PCP Registered Nurse; Visit Provider Surgery | DX: Z48.817 Encounter for surgical aftercare following surgery on the skin and subcutaneous tissue (principal); L73.2 Hidradenitis suppurativa; L72.0 Epidermal cyst; Z98.890 Other specified postprocedural states | CPT/HCPCS: 99212 ==

== ENCOUNTER 2024-09-22 08:00 | Outpatient (AMB) | payer MEDICAID, SELFPAY ==
--- NOTE | 2024-09-22 08:17 | A.OFFVIS_ITS ---
Vital Signs 09/22/24 08:27 Height 5 ft 7 in Weight 180 lb BMI 28.2 BP 134/67 Blood Pressure Location Rt brachial Position Sitting Pulse 94 Intake Visit Reasons: Hidradenitis suppurativa cyst Intake Note: Patient is seen in office for recurrent hidradenitis. Pt c/o: new abscess forming on Rt upper thigh. Render to touch. Denies oozing, bleeding. Smaller cysts on Lt axilla. Not taking Cephalexin because experiences nausea and stomachache after. Rehabilitation Worker Required: No Accompanied by: Self / Same As Patient Allergies No Known Allergies Allergy (Verified 09/22/24 08:26) Medication List - Last Reconciled 09/22/24 by Darrick Carlton MD albuterol sulfate 90 mcg/actuation 2 puffs inhalation QID PRN cephalexin 500 mg PO Q8H 10 days chlorhexidine gluconate 4% (Hibiclens) 1 appl topically QOD; Lather for two minutes before rinsing off. 2 weeks ferrous sulfate 325 mg PO QAM HPI Comments Details: Patient returns with a new possible hidradenitis infection located in the right upper inner thigh which began approximately 1 week ago. Previous areas that were excised are healing well with a evidence of a new infection. She was asked to mild areas in the left axilla which are beginning to become uncomfortable. She denies any bleeding or discharge from either site. Also denies fever or chills. COUNTS INCLUDE 234 BEDS AT THE [facility] Medical History GERD (gastroesophageal reflux disease) Gestational diabetes Habitual snoring Aerophagia Epidermal cyst Acid reflux Hydradenitis Asthma Surgical History History of surgery (04/26/24) History of esophagogastroduodenoscopy (EGD) Hx of section History of incision and drainage Social History Household Members Other:: Lives alone no children Are you a primary infant caregiver to a significant other at home: Yes Do you presently have visiting nurse or other home services: No Patient Tobacco Use Status: Never used Tobacco Second Hand Smoke Exposure: No 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 Review of Systems Const All systems reviewed & are unremarkable except as noted in HPI and below Physical Exam Const General: no acute distress Nutritional Appearance: well nourished Orientation/consciousness: patient oriented x3 GI Inspection: Yes normal to inspection Skin Other: Excision site in the right upper inner thigh/right groin is clean and intact. A new area is noted just below this in the upper inner thigh measuring approximately 2 cm in diameter. It does appear fluctuant and tender to palpation. Overlying skin is red. In the left axilla 2 small punctate areas of redness are identified but no evidence of abscess formation. Neuro General: patient oriented x3 Office Procedures I&D Drain Details: Preoperative diagnosis: Hidradenitis abscess right upper inner thigh Postoperative diagnosis: Same Procedure: Incision and drainage abscess right upper inner thigh Surgeon: Darrick Carlton MD Branch Mechanic: None Anesthesia: Lidocaine 1% with epinephrine Indications for procedure: Painful possible abscess right upper inner thigh due to hidradenitis Operative findings: No abscess collection drainable Specimen: None Estimated blood loss: 1 mL Complications: None Procedure details: Patient was placed in a supine position. The site of surgery was confirmed by the patient in the upper inner thigh. After assuring informed consent the skin was prepped with Betadine. Local anesthesia was then infiltrated over the abscess. A small incision was then made with an 11 blade in the collection entered. No purulent fluid was identified. Wounds were then dressed with sterile gauze and paper tape. Patient was instructed on local wound care should follow up as needed. [id number] of Skin Abscess, simple All charges added?: Procedure code (CPT) selection complete Assessment & Plan Assessment & Plan (1) Hydradenitis: Code(s): L73.2 - Hidradenitis suppurativa Category: Medical Plan 39-year-old female patient with a previous history of hidradenitis now presenting with a new area located in the upper inner thigh and left axilla. The upper inner thigh does appear fluctuant therefore I recommended incision and drainage. After discussion of the procedure, risks, and alternatives, she consents to the procedure. The area of the left axilla is mild and does not require any surgical procedure at this time. I would recommend starting Hibiclens scrub several times weekly. She should follow up as needed. Medications: New chlorhexidine gluconate 4% (Hibiclens) 1 appl topically QOD; Lather for two minutes before rinsing off. 3,800 mL 0RF 2 weeks Coding Level of Care Code Est Pt Level 3 (07399) Diagnoses Hydradenitis L73.2 CPT Codes I&D Drain - Drain 1: [id number] of Skin Abscess, simple ([id number])
[2024-09-22 08:27] VITALS: BP 134/67; PULSE 94; BMI 28.2
== END 2024-09-22 08:38 | disposition home or self-care (01) ==
PROVIDERS: PCP Registered Nurse; Visit Provider Surgery
DX: L73.2 Hidradenitis suppurativa (principal)
CPT/HCPCS: 10060; 99024

== ENCOUNTER → 2024-09-22 08:00 | Outpatient (BNVA) | payer MEDICAID, SELFPAY | PROVIDERS: PCP Registered Nurse; Visit Provider Surgery | DX: L73.2 Hidradenitis suppurativa (principal) | CPT/HCPCS: 10060; 99212 ==

== ENCOUNTER 2025-01-30 15:07 | Outpatient (REF) | payer MEDICAID, SELFPAY ==
--- OUTSIDE RECORDS SUMMARY | 2025-01-30 18:03 | XMS_ITS | Encounter Summary ---
Author Organization [employer] Address [address] [place] [address] Care Team Providers Care Inventory Technician Name Role Phone Mariela Roland Primary Care Provider [phone] Darrick Carlton MD Unavailable [phone] Carlos Patel Unavailable Encounter Details Date Type Department Care Team ([facility] Contact Info) Description 04/06/2024 Telephone [facility]S [address] [place], [place] [phone] Mariela Roland FNP [address] [place] [address] Social History Tobacco Use Types Packs/Day Years Used Date Smoking Tobacco: Never Passive Smoke Exposure: Never Smokeless Tobacco: Never Alcohol Use Standard Drinks/Week Comments Yes 2 (1 standard drink = 0.6 oz pur e alcohol) Rarely Depression Answer Date Recorded Patient Health Questionnaire-9 Score 2 01/30/2024 Patient Health Questionnaire-9 Score 2 01/30/2024 Last PHQ-9: Questionnaire Data Not on file 0 01/30/2024 Housing Stability Answer Date Recorded What is your housing situation today? I have sancho lopez 07/30/[address] you li ve. Do you have problems with any of the following? None of the above 07/30/2023 Food Insecurity Answer Date Recorded Within the past 12 months, y ou worried that your food would run out before you got money to buy more: Never True 07/30/2023 Within the past 12 months,th e food you bought just didn't last and you didn't have enough money to get more: Never True Transportation Answer Date Recorded In the past 12 months, has l ack of transportation kept you from medical appts, meetings, work or from getting things needed for daily living? No 07/30/2023 Utilities Answer Date Recorded In the past 12 months, has t he electric, gas, oil or water company threatened to shut off services in your home? No 07/30/2023 Depression Answer Date Recorded Patient Health Questionnaire-2 Score 2 01/30/2024 Comments No Sex and Gender Information Value Date Recorded Sex Assigned at Female 08/10/2022 10:19 AM EDT Legal Sex Female 10:19 AM EDT Gender Identity Female 08/10/2022 10:19 AM EDT Sexual Orientation Straight 08/10/2022 10 :19 AM EDT documented as of this encounter Miscellaneous Notes * Telephone Encounter - Maxine Scott RN - 04/07/2024 9:21 AM EDT Please review and advise for below message. [facility] is requesting notes to be faxed. Please advise whennotes is complete. * Telephone Encounter - Kathy Huerta - 04/06/2024 2:12 PM EDT Narendra Sewell with [facility] general surgery requesting 04/05 OV notes to be faxed to [phone]. documented in this encounter Plan of Treatment Upcoming Encounters Date Type Department Care Team (Late st Contact Info) Description 04/23/2025 10:30 AM EDT Office Visit [facility] PEDS [address] [place] [address] Mariela Roland FNP [address] [place] [address] documented as of this encounter Visit Diagnoses Not on filedocumented in this encounter Additional Health Concerns Assessment Noted Time PHQ-9 Depression Total Score: 2 01/30/20 24 8:40 AM EDT documented as of this encounter Care Teams Inventory Technician Relationship Specialty Start Date End Date Mariela Roland FNP [address] [place] [address] PCP - General Family Medicine 06/10/22 Darrick Carlton MD [address] [place] [address] [address] [place] [address] General Surgery 09/12/24 Carlos Patel [address] [place] [address] Gynecology 09/12/24 documented as of this encounter
--- OUTSIDE RECORDS SUMMARY | 2025-01-30 18:03 | XMS_ITS | Encounter Summary ---
Author Organization [employer] [facility] Address [address] [place] [address] Care Team Providers Care Corporate Legal Manager Name Role Phone Mariela Roland Primary Care Provider [phone] Darrick Carlton MD Unavailable [phone] Carlos Patel Unavailable Reason for Referral * Consultation (Routine) - Authorized Specialty Diagnoses / Procedures Referred By Eli noyola Referred To Contact Ophthalmology Diagnoses Chalazion left upper eyelid Sadaf Mercado FNP [address] [place] [address] Phone: tel: fax: [facility] [place] [address] [place] [address] Phone: tel: fax: Referral ID Status Reason Start Date Expiration Date Visits Requested Visits Authorized [id number] Authorized Specialty Services Required 01/26/2025 01/26/2026 1 1 Reason for Visit * Reason Comments Eye Pain Encounter Details Date Type Department Care Team (Late st Contact Info) Description 01/26/2025 1:40 PM EDT Office Visit [facility] [address] [place] [address] Sadaf Mercado FNP [address] [place] [address] Chalazion left upper eyelid (Primary Dx) Social History Tobacco Use Types Packs/Day Years Used Date Smoking Tobacco: Never Passive Smoke Exposure: Never Smokeless Tobacco: Never Alcohol Use Standard Drinks/Week Comments Never 2 (1 standard drink = 0.6 oz pur e alcohol) Depression Answer Date Recorded Patient Health Questionnaire-9 [...] Patient Health Questionnaire-2 Score 2 01/30/2024 Comments Unknown Sex and Gender Information Value Date Recorded Sex Assigned at Female 08/10/2022 10:19 AM EDT Legal Sex Female 10:19 AM EDT Gender Identity Female 08/10/2022 10:19 AM EDT Sexual Orientation Straight 08/10/2022 10 :19 AM EDT documented as of this encounter Last Filed Vital Signs Vital Sign Reading Time Taken Comments Blood Pressure 127/83 01/26/2025 1:14 PM EDT Pulse 76 01/26/2025 1:14 PM EDT Temperature 36.7 ??C (98 ??F) 01/26/2025 1:14 PM EDT Respiratory Rate 16 01/26/2025 1:14 PM EDT Oxygen Saturation 98% 01/26/2025 1:14 PM EDT Inhaled Oxygen Concentration - - Weight 83 kg (183 lb) 01/26/2025 1:14 PM EDT Height - - Body Mass Index 28.66 09/11/2024 10:18 AM EST documented in this encounter Progress Notes * [facility], POWER SYSTEM DISPATCHER - 01/26/2025 1:40 PM EDT SUBJECTIVE: Mariaelena Quezada is a 39 y.o. year old female who presents for evaluation of left eye pain HPI Bump on left eyelid x 4 months. Irritated. No pain with EOM Patient Active Problem List Diagnosis Gastroesophageal reflux disease with hiatal hernia Hypercholesterolemia Mild intermittent asthma Vitamin D deficiency Alopecia areata History of gestational diabetes Healthcare maintenance Hematochezia Aerophagia Anemia during in third trimester Complex ovarian cyst Epidermal cyst Hair loss Hidradenitis suppurativa Microscopic hematuria Other hemorrhoids Anemia Dyspepsia Constipation Pruritus genitalia Review of Systems Constitutional: Negative for fever. HENT: Negative. Respiratory: Negative for shortness of breath. Cardiovascular: Negative for chest pain. Gastrointestinal: Negative for abdominal pain. Neurological: Negative for dizziness and weakness. OBJECTIVE: Vitals: 01/26/25 1314 BP: 127/83 Pulse: 76 Resp: 16 Temp: 98 ??F (36.7 ??C) SpO2: 98% Physical Exam Constitutional: General: She is not in acute distress. Appearance: Normal appearance. HENT: Head: Normocephalic and atraumatic. Right Ear: External ear normal. Left Ear: External ear normal. Nose: Nose normal. Eyes: Extraocular Movements: Extraocular movements intact. Conjunctiva/sclera: Conjunctivae normal. Comments: Left eyelid with firm superficial nodule approx 3mm in diameter. Non-tender Pulmonary: Effort: Pulmonary effort is normal. Neurological: General: No focal deficit present. Mental Status: She is alert and oriented to person, place, and time. Psychiatric: Mood and Affect: Mood normal. Behavior: Behavior normal. ASSESSMENT/PLAN Chalazion - Lesion c/w chalazion - Referral to ophthalmology for removal Patient verbalizes understanding and agrees to plan Diagnosis Plan 1. Chalazion left upper eyelid Referral to Ophthalmology Referral to Ophthalmology Follow Up: PRN Current Outpatient Medications on File Prior to Visit Medication Sig Dispense Refill albuterol (2.5 MG/3ML) 0.083% nebulizer solution Take 3 mL (2.5 mg) by nebulization every 4 (four) hours if needed for wheezing or shortness of breath. 75 mL 11 ammonium lactate (Amlactin) 12 % cream Apply thin layer by topical route to bottom of feet 1-2 times per day as needed for dry skin 385 g 2 Cholecalciferol (Vitamin D3 Extra Strength) 25 MCG (1000 UT) chewable tablet CHEW 1 TABLET BY MOUTHEVERY DAY 90 tablet 1 hydrocortisone (Anusol-HC) 2.5 % rectal cream Use thin layer to affected area (hemorrhoids) twice daily as needed 28 g 2 loratadine (Claritin) 10 MG tablet Take 1 tablet (10 mg) by mouth Once per day. 90 tablet 3 pantoprazole (ProtoNix) 40 MG EC tablet TAKE 1 TABLET BY MOUTH EVERY DAY 90 tablet 1 psyllium (Metamucil) 0.36 g capsule Take 6 capsules (2.16 g) by mouth Once per day. 180 capsule 11 senna-docusate (Senexon-S) 8.6-50 MG tablet TAKE 1-2 TABLETS BY MOUTH IF NEEDED EACH DAY FOR CONSTIPATION. 180 tablet 1 sucralfate (Carafate) 1 g tablet Take 1 tablet by mouth every 12 (twelve) hours. Ventolin HFA 108 (90 Base) MCG/ACT inhaler INHALE 2 PUFFS BY MOUTH EVERY 4 HOURS IF NEEDED FOR WHEEZING. 18 g 0 No current facility-administered medications on file prior to visit. Uzbek Translation: N/A documented in this encounter Plan of Treatment Upcoming Encounters Date Type Department Care Team ([facility] st Contact Info) Description 04/23/2025 10:30 AM EDT Office Visit [facility] [address] [place] [address] Mariela Roland FNP [address] [place] [address] Scheduled Referrals Name Type Priority Associated Diagnoses Order Schedule Referral to Ophthalmology Outpatient Referral Routine Chalazion left upper eyelid Expected: 01/26/2025 (Approximate), Expires: 01/26/2026 documented as of this encounter Visit Diagnoses Diagnosis Chalazion left upper eyelid- Primary documented in this encounter Additional Health Concerns Assessment Noted Time PHQ-9 Depression Total Score: 2 01/30/20 8:40 AM EDT documented as of this encounter Care Teams Corporate Legal Manager Relationship Specialty Start Date End Date Mariela Roland FNP [address] [place] [address] PCP - General Family Medicine 06/10/22 Darrick Carlton MD [address] [place] [address] 3rd [place] [address] General Surgery 09/12/24 Carlos Patel [address] [place] [address] Gynecology 09/12/24 documented as of this encounter
--- OUTSIDE RECORDS SUMMARY | 2025-01-30 18:03 | XMS_ITS | Encounter Summary ---
Author Organization [employer] [facility] Address [address] 7t [place] [address] Care Team Providers Care Cardiovascular Or Nurse Name Role Phone Mariela Roland Primary Care Provider [phone] Darrick Carlton MD Unavailable [phone] Carlos Patel Unavailable Reason for Visit * Reason Comments Med Change Request Encounter Details Date Type Department Care Team (Late Contact Info) Description 11/04/2022 Refill [facility] [address] [place] [address] Mariela Roland FNP [address] [place], [place] [phone] Iron deficiency Social History Tobacco Use Types Packs/Day Years Used Date Smoking Tobacco: Never Smokeless Tobacco: Never Alcohol Use Standard Drinks/Week Comments Yes 2 (1 standard drink = 0.6 oz pur e alcohol) Rarely Depression Answer Date Recorded Patient Health Questionnaire-9 Score 6 09/24/2022 Depression Answer Date Recorded Patient Health Questionnaire-2 Score 3 09/24/2022 Comments Unknown Sex and Gender Information Value Date Recorded Sex Assigned at Female 08/10/2022 10:19 AM EDT Legal Sex Female 10:19 AM EDT Gender Identity Female 08/10/2022 10:19 AM EDT Sexual Orientation Straight 08/10/2022 10 :19 AM EDT documented as of this encounter Plan of Treatment Upcoming Encounters Date Type Department Care Team (Late Contact Info) Description 04/23/2025 10:30 AM EDT Office Visit [facility] & PEDS [address] [place] [address] Mariela Roland FNP [address] [place] [address] documented as of this encounter Visit Diagnoses Diagnosis Iron deficiency Disorders of iron metabolism documented in this encounter Additional Health Concerns Assessment Noted Time PHQ-9 Depression Total Score: 6 09/24/20 22 9:17 AM EST documented as of this encounter Care Teams Cardiovascular Or Nurse Relationship Specialty Start Date End Date Mariela Roland FNP [address] [place] [address] PCP - General Family Medicine 06/10/22 Darrick Carlton MD [address] [place] [address] 3rd [place] [address] General Surgery 09/12/24 Carlos Patel [address] [place] [address] Gynecology 09/12/24 Qiana Leach RN Care Manager 08/19/23 01/09/24 documented as of this encounter
--- OUTSIDE RECORDS SUMMARY | 2025-01-30 18:03 | XMS_ITS | Encounter Summary ---
Author Organization [employer] [facility] Address [address] 7t [place] [address] Care Team Providers Care Shuttle Filler Name Role Phone Mariela Roland Primary Care Provider [phone] Darrick Carlton MD Unavailable [phone] Carlos Patel Unavailable Encounter Details Date Type Department Care Team (Latest Contact Info) Description 10/16/2020 Abstract [facility] CONVERSIONS Dental, Provider, DDS Social History Tobacco Use Types Packs/Day Years Used Date Smoking Tobacco: Never Assessed Comments Unknown Sex and Gender Information Value [...] Description 04/23/2025 10:30 AM EDT Office Visit [facility] MED & PEDS [address] [place] [address] Mariela Roland FNP [address] [place] [address] documented as of this encounter Visit Diagnoses Not on filedocumented in this encounter Care Teams Shuttle Filler Relationship Specialty Start Date End Date Mariela Roland FNP [address] [place] [address] PCP - General Family Medicine 06/10/22 Darrick Carlton MD [address] [place] [address] 3rd [place] [address] General Surgery 09/12/24 Carlos Patel [address] [place] [address] Gynecology 09/12/24 Qiana Leach testboard operator 08/19/23 01/09/24 documented as of this encounter
--- OUTSIDE RECORDS SUMMARY | 2025-01-30 18:03 | XMS_ITS | Encounter Summary ---
Author Organization [employer] Address [address] [place] [address] Care Team Providers Care Radio Equipment Installer Name Role Phone Mariela Roland Primary Care Provider [phone] Darrick Carlton MD Unavailable [phone] Carlos Patel Unavailable Reason for Visit * Reason Onset Date Comments Lab Orders 01/30/2025 Encounter Details Date Type Department Care Team (Late st Contact Info) Description 01/30/2025 Telephone [facility] MEDICINE [address] [place] [address] Mariela Roland FNP [address] [place], [place] [phone] Lab Orders Social History Tobacco Use Types Packs/Day Years [...] encounter Miscellaneous Notes * Telephone Encounter - Sarah Marquez RN - 01/30/2025 2:05 PM EDT TC to pt. Lab orders placed. Pt verbalized understanding. * Telephone Encounter - Beatrice Goodwin - 01/30/2025 1:11 PM EDT Tc from pt requesting an order for TB test as her new job is requesting it , pt will like order to be placed as soon as possible. documented in this encounter Plan of Treatment Upcoming Encounters Date Type Department Care Team (Late st Contact Info) Description 04/23/2025 10:30 AM EDT [facility] [address] [place] [address] Mariela Roland FNP [address] [place] [address] Scheduled Orders Name Type Priority Associated Diagnoses Orde r Schedule T-SPOT??.TB Lab Routine Screening due Expected: 01/30/2025 (Approximate), Expires: 01/30/2026 documented as of this encounter Visit Diagnoses Diagnosis Screening due- Primary documented in this encounter Additional Health Concerns Assessment Noted Time PHQ-9 Depression Total Score: 2 01/30/20 24 8:40 AM EDT documented as of this encounter Care Teams Radio Equipment Installer Relationship Specialty Start Date End Date Mariela Roland FNP [address] [place] [address] PCP - General Family Medicine 06/10/22 Darrick Carlton MD [address] [place] [address] 3rd [place] [address] General Surgery 09/12/24 Carlos Patel [address] [place] [address] Gynecology 09/12/24 documented as of this encounter
--- OUTSIDE RECORDS SUMMARY | 2025-01-30 18:03 | XMS_ITS | Clinical Summary ---
Author Organization [employer] Address [address] [facility] [address] [place] [address] Care Team Providers Care Card Grinder Helper Name Role Phone Luan Mariela QUIQUE Primary Care Provider [phone] Darrick Carlton MD Unavailable [phone] Carlos Patel Unavailable Allergies No known active allergies Medications sucralfate (Carafate) 1 g tablet Take 1 tablet by mouth every 12 (twelve) hours. Active Ventolin HFA 108 (90 Base) MCG/ACT inhaler INHALE 2 PUFFS BY MOUTH EVERY 4 HOURS IF NEEDED FOR WHEEZING. 18 g 03/30/20 23 Active albuterol (2.5 MG/3ML) 0.083% nebulizer solution Take 3 mL (2.5 mg) by nebulization every 4 (four) hours if needed for wheezing or shortness of breath. 75 mL 11 12/28/19 24 Active loratadine (Claritin) 10 MG tablet Take 1 tablet (10 mg) by mouth Once per day. 90 tablet 3 01/28/20 24 Active psyllium (Metamucil) 0.36 g capsule Take 6 capsules (2.16 g) by mouth Once per day. 180 capsule 11 05/01/20 24 025 Active Cholecalciferol (Vitamin D3 Extra Strength) 25 MCG (1000 UT) chewable tabletIndications :Vitamin D insufficiency CHEW 1 TABLET BY MOUTH EVERY DAY 90 tablet 1 08/03/20 24 Active pantoprazole (ProtoNix) 40 MG EC tabletIndications :Gastroesophageal reflux disease with hiatal hernia TAKE 1 TABLET BY MOUTH EVERY DAY 90 tablet 1 08/03/20 24 Active ammonium lactate (Amlactin) 12 % creamIndications: Xerosis of skin Apply thin layer by topical route to bottom of feet 1-2 times per day as needed for dry skin 385 g 2 09/11/20 24 Active hydrocortisone (Anusol-HC) 2.5 % rectal creamIndications: Other hemorrhoids Use thin layer to affected area (hemorrhoids) twice daily as needed 28 g 2 09/11/20 24 Active senna-docusate (Senexon-S) 8.6-50 MG tabletIndications :Other hemorrhoids,Const ipation, unspecified constipation type TAKE 1-2 TABLETS BY MOUTH IF NEEDED EACH DAY FOR CONSTIPATION. 180 tablet 1 11/17/19 25 Active penicillin v potassium (Veetid) 500 MG tabletIndications :Strep pharyngitis Take 1 tablet (500 mg) by mouth 2 times daily for 10 days. 20 tablet 12/28/19 25 025 Active Problems Problem Noted Date Diagnosed Date Pruritus genitalia 09/12/2024 Assessment & Plan (09/12/2024 7:58 PM EST): Followed by OBGYN - Dr. Patel Considering Beh??et's disease Has responded well to Triamcinolone 0.1% oint Other hemorrhoids 05/01/2024 Assessment & Plan (06/01/2024 3:38 PM EDT): History consistent with hemorrhoids, none visible externally on exam Reviewed constipation prevention, s/s to report Assessment & Plan (05/15/2024 1:01 PM EDT): -Start Anusol PRN -Follow up precautions Anemia 05/01/2024 Dyspepsia 05/01/2024 Assessment & Plan (06/01/2024 3:39 PM EDT): Reviewed low acid foods Constipation 05/01/2024 Overview (09/12/2024): Cont psyllium Cont Senna-S 1-2 tablets daily PRN Encouraged high fiber diet, good hydration, routine physical activity/movement Previous medications: - Colace (not effective) Assessment & Plan (09/12/2024 8:01 PM EST): Well controlled, cont with current regimen Assessment & Plan (06/01/2024 3:38 PM EDT): Encouraged prevention, trial metamecuil, increase hydration Assessment & Plan (05/15/2024 1:18 PM EDT): Continue psyllium DC colace Start Senna-S 1-2 tablets daily Encourage high fiber diet, good hydration, movement Aerophagia 04/06/2024 Complex ovarian cyst 04/06/2024 Epidermal cyst 04/06/2024 Hair loss 04/06/2024 Hidradenitis suppurativa 04/06/2024 Assessment & Plan (09/12/2024 7:55 PM EST): -S/p excision of HS lesion right groin x 2: April 2024 & Jul 2024 at [facility] Surgery - Dr. Carlton Microscopic hematuria 04/06/2024 Assessment & Plan (05/15/2024 1:03 PM EDT): Following with [facility] Urology - LEELEE Costa Plan: labs and retroperitoneal US follow up in February 2025 with Urology Hematochezia 01/28/2024 Assessment & Plan (01/28/2024 10:45 AM EDT): History of blood in stool Referral to GI placed 12/28/23 Reviewed ED/urgent care precautions Upcoming appt end of January 2024. Healthcare maintenance 12/28/2023 Overview (01/30/2024): Pap: 04/02/22 NIL/HPV neg, repeat due 2026 Optometry: followed by [facility] Last PE: 01/28/24 Anemia during in third trimester 07/01 Overview (04/06/2024): 28 weeks - Hgb 9.5 On iron Repeat hgb at 37wks 9.3 Last Assessment & Plan: Pt confirms she is taking iron. Will ordered CBC to recheck Hgb. Pt informed to present to lab. History of gestational diabetes 06/17/2023 Overview (01/28/2024): -Following with [facility]DE during -December 2023: BG and A1c WNL Lab Results Component Value Date HGBA1C 5.3 12/27/2023 Assessment & Plan (12/28/2023 12:14 PM EDT): Recheck of A1c and FBG Alopecia areata 09/24/2022 Assessment & Plan (01/28/2024 7:24 AM EDT): -Previously followed by [facility] Derm team and tx with Minoxidil (although discontinued use during ) Assessment & Plan (12/26/2023 6:23 PM EDT): -Minoxodil not advised during -Refill of betamethasone, although advised of risks and SE of snf use. Pt to use sparingly PRN Assessment & Plan (01/26/2023 1:18 PM EDT): -Minoxodil not advised during -Refill of betamethasone, although advised of risks and SE of terminal make up operator use. Pt to use sparingly PRN Assessment & Plan (12/04/2022 9:44 AM EST): -Discontinue Betamethasone and initiate 5% Minoxidil Foam to use 1-2x daily. -Reassured patient, this will self-resolve. Assessment & Plan (10/05/2022 8:26 PM EST): -Follow up with Derm as scheduled Nov 2021 -Confirmed with [facility] Derm team they have the ability to do intralesional injections day of if appropriate -Check labs including JASVIR, RF, TSH, liver panel, iron studies -Patient education handout from [employer] provided Hypercholesterolemia 09/23/2022 Assessment & Plan (01/28/2024 7:22 AM EDT): -LDL 119, TG 76 in April 2021 -Cont lifestyle modifications Assessment & Plan (10/05/2022 8:24 PM EST): -LDL 119, TG 76 in April 2021 -Repeat lipid panel Gastroesophageal reflux disease with hiatal cynthia ia 06/03/2020 Assessment & Plan (01/28/2024 7:26 AM EDT): -Following with [facility] GI -Continues with pantoprazole 40mg daily and sucralfate (through GI) Assessment & Plan (10/05/2022 8:22 PM EST): -Following with [facility] GI -Continues with pantoprazole 40mg daily and sucralfate (through GI) Vitamin D deficiency 02/06/2019 Assessment & Plan (01/28/2024 7:25 AM EDT): -Last Vit D level 2021: 21 ng/mL -re-check Vitamin D levels Assessment & Plan (10/05/2022 8:23 PM EST): -re-check Vitamin D levels Mild intermittent asthma 08/08/2015 Assessment & Plan (01/30/2024 8:41 AM EDT): Continue albuterol PRN Reviewed Rule of 2's to assess control, currently well controlled DME request for neb machine: 12/28/23 (faxed to [facility]) - recieved Assessment & Plan (12/28/2023 12:10 PM EDT): Continue albuterol PRN Reviewed Rule of 2's to assess control, currently well controlled DME request for neb machine: 12/28/23 Resolved Problems Problem Noted Date Diagnosed Date Resolved Date Concussion with no loss of consciousness 04/20/2024 09/12/2024 Assessment & Plan (04/20/2024 10:14 AM EDT): Sig improvement in symptoms since taking time off from work. Pt feels ready to return. Anticipatory guidance and brain rest reviewed. Pt will call for any new or reoccurring symptoms Acute post-traumatic headach e, not intractable 04/10/2024 09/12/2024 Assessment & Plan (04/10/2024 10:25 PM EDT): -symptoms related to concussion -start zofran for nausea, alternate tylenol and motrin for headaches -get a lot of rest, limit all activities that require a lot of thinking, television/computer/tablet/ phone screens, increase fluid intake and maintain a balanced diet to avoid hypoglycemia -gradually return to regular daily activities as symptoms improve -report to the ED immediately if headache worsens, develop repeated vomiting, seizures, neck pain, increasing confusion, loss of consciousness, limb weakness/numbness, slurred speech or disorientation. -following per CDC's STEFANI care plan recommendations, patient was advised to remain out of work until Wednesday (04/10/24). -follow-up scheduled for 04/11/24 to reassess readiness to return to work -mildly elevated HR, reassess at next visit Folliculitis 04/06/2024 09/12/2024 Poor historian 04/06/2024 09/11/2024 Post concussive syndrome 04/06/202402/2024 Proteinuria 04/06/2024 09/12/2024 Yeast infection involving th e vagina and surrounding area 04/06/2024 09/12/2024 Breech presentation, no version 08/19/2023 09/12/2024 Overview (04/06/2024): Last Assessment & Plan: The patient was noted to be breech on today's BPP for postdates. Her SEBASTIEN was only 8 to 9 cm. Risk, benefits, and alternatives of management reviewed with the patient including ECV versus primary low-transverse section. After thorough discussion of each, she opted for primary low-transverse section. Behcet's disease 07/23/2023 01/28/2024 Overview (01/28/2024): Treated by Dr. Patel for Behcet's Disease in 06/2023 and treatment was successful. Genital herpes affecting pre gnancy in second trimester 04/20/2023 12/28/2023 Overview (04/30/2023): Primary outbreak at 23w3d, swab collected and sent but advised it may be negative based on duration of symptoms and healing lesions Treated with valtrex even though > 72 hours from onset to improve symptoms Needs suppression at 36 weeks Last Assessment & Plan: Mariaelena notes onset of burning sensation and open sores on labia to the right and left of clitoris that have been present x 3 weeks. Seen at primary care and treated for UTI empirically, advised to stop treatment when culture was negative. Still burning and mildly itchy. Lesions do not seem to be healing or worsening, doesn't feel like she developing new lesions. On exam there are scattered 3mm ulcers on labia bilaterally, consistent with HSV. brought in to assess patient due to unusual presentation (mild sx, length of symptom duration) and agrees with assessment. Swab collected but she was advised that it might be negative as she is far into infection. Valtrex recommended for symptomatic improvement by Dr. Arshad, offered and accepted by Mariaelena. Discussed infection with both patient and partner, neither have any history of HSV. Reviewed episodic treatment vs suppression as needed, discussed abstaining from intercourse with outbreaks or prodrome. All questions answered. Information given via web portal but she is not activated on portal; we spoke on the phone after visit and I confirmed she does not have any questions or concerns. Plan for suppression at 36 weeks and carefully monitor for further outbreaks throughout . Encounter for supervision of normal in third trimester 02/05/2023 12/26/2023 Overview (04/30/2023): GIUSEPPE ZARAGOZA OB-CMI score: 2 [12/21/2022] Group PN care? * Rh Pos GC/Chlam neg PAP 04/01 NIL HPV neg Tdap * Flu * COVID-19* Hgb * GTT * 28 wk Repeat RPR * GBS * PPBC * screening CFDNA Last Assessment & Plan: Mariaelena feels well other than genital lesions; see problem list. Recently had Level II at [facility], results reviewed. She has a repeat scheduled as some views were limited. She is very interested in childbirth classes, plans to enroll. Not feeling FM yet, anterior placenta, given reassurance. Nausea and vomiting of , antepartum 3 12/26/2023 Overview (04/30/2023): Last Assessment & Plan: Nausea has resolved. with uncertain celeste es in first trimester 01/18/2023 12/26/2023 Overview (04/30/2023): LMP 10/2022; unsure of dates 01/13/23 u/s 9 wks 4 days w/ LUIS 08/14/23; use u/s dates. Review at next visit. Asthma 12/21/2022 12/28/2023 Overview (04/30/2023): Uses albuterol inhaler prn. Discussed importance of good control during ; use inhaler prn and fol up with PCP if sx increase. Burping 09/23/2022 12/28/2023 Hypertrophy of tongue papillae 11/05/2016 01/28/2024 Encounters Date Type Department Care Team Description 01/30/2025 Telephone [facility] [address] [place] [address] Mariela Roland FNP Lab Orders 01/26/2025 1:40 PM EDT Office Visit [facility] [address] [place], [place] [phone] Sadaf Mercado FNP Chalazion left upper eyelid (Primary Dx) 01/22/2025 Telephone [facility] [address] [place], [place] [phone] Mariela Roland FNP Lab Orders 01/18/2025 Telephone [facility] [address] [place], [place] [phone] Mariela Roland FNP January01/03/2025 Population Health Risk Score [facility] ([facility] Department [address] [place] [phone] Provider, Population Health Generic 12/27/2024 2:40 PM EDT Office Visit [facility] [address] [place] [address] Naomi Mallory, KIRK Strep pharyngitis (Primary Dx); Sore throat; Diarrhea in adult patient 11/28/2024 Telephone [facility]EDS [address] [place] [address] Mariela Roland FNP November11/17/2024 Refill [facility] [address] [place] [address] Mariela Roland FNP Other hemorrhoids; Constipation, unspecified constipation type from Last 3 Months Immunizations Name Administration Dates Next Due HPV, Quadrivalent 09/02/2010,12/16/2009,07/18/20 09 Hep B, adult 08/28/2016,02/06/2015,02/11/2011 Influenza injectable quadriv alent IIV4 with preservative 06/30/2018 Influenza injectable quadriv alent preservative free 12/14/2019 Influenza, IIV3, injectable 07/18/2009 MMR 02/11/2011 Tdap 02/11/2011 Family History Medical History Relation Name Comments Arthritis Mother Asthma Mother Lupus Mother Ulcers Mother acid reflux Mother cancer gastric Mother's Brother Relation Name Status Comments Mother Mother's Brother Social History Tobacco Use Types Packs/Day Years [...] Orientation Straight 08/10/2022 10 :19 AM EDT Last Filed Vital Signs Vital Sign Reading Time Taken Comments Blood Pressure 127/83 01/26/2025 1:14 PM EDT Pulse 76 01/26/2025 1:14 PM EDT Temperature 36.7 ??C (98 ??F) 01/26/2025 1:14 PM EDT Respiratory Rate 16 01/26/2025 1:14 PM EDT Oxygen Saturation 98% 01/26/2025 1:14 PM EDT Inhaled Oxygen Concentration - - Weight 83 kg (183 lb) 01/26/2025 1:14 PM EDT Height 170.2 cm (5' 7 ) 09/11/2024 10:18 AM EST Body Mass Index 28.66 09/11/2024 10:18 AM EST Plan of Treatment Upcoming Encounters Date Type Department Care Team (Late st Contact Info) Description 04/23/2025 10:30 AM EDT Office Visit [facility] [address] [place] [address] Mariela Roland FNP [address] [place], [place] [phone] Health Maintenance Due Date Last Done Comments Alcohol/Substance Use Screening 1999 Family Planning (PISQ) 2002 Dental Prophylaxis 12/30/2019 06/30/2019, 0 12/27/2018, 05/26/2018, Additional history exists Dental X-Ray: Full Mouth 10/01/2020 09/30/2017, 07/12 DTaP/Tdap/Td Vaccines (2 - Td or Tdap) 02/11/2021 02/11/2011 Dental Oral Exam 04/16/2021 10/16/2020, , 01/11/2019, Additional history exists Dental X-Ray: Bitewings 10/17/2021 10/16/19, 05/07/2020, 06/30/2019, Additional history exists SDOH Screening 01/27/2025 01/28/2024 Depression Screening 01/29/2025 01/30/2024, 01/30/20 24 Pap Smear 04/02/2025 04/02/2022 Influenza Vaccine (#1) 2025 , 06/30/2018, 07/18/2009 Postponed from 06/11/2024 (Patient Refused) Pneumococcal Vaccine: Pediatrics (0 to 5 Years) and At-Risk Patients (6 to 49) Years) (1 of 2 - PCV) 05/15/2025 Postponed from 2006 (Patient Refused) COVID-19 Vaccine (1 - 2023- season) 2025 Postponed from 06/11/2024 (Patient Refused) Tobacco Screening 01/26/2026 01/26/2025 Cervical Cancer Screening 04/02/2027 HPV/Cotest 04/02/2027 04/02/2022, 03/29/2018 Zoster Vaccines (1 of 2) 2037 RSV Patients and Patients Aged 60 years or older (1 - 1-dose 75+ series) 2062 HPV Vaccines Completed 09/02/2010, 03/0 05/2010, 07/18/2009 Hepatitis B Vaccines Completed 08/28/2016, 02/06/2015, 02/11/2011 HIV Screening Completed 01/28/2024, 09/02/2022 Hepatitis C Screening Completed 01/28/2024, 022 HIB Vaccines Aged Out No longer eligi ble based on patient's age to complete this topic Hepatitis A Vaccines Aged Out No long er eligible based on patient's age to complete this topic IPV Vaccines Aged Out No longer eligi ble based on patient's age to complete this topic Meningococcal Vaccine Aged Out No dali nilda eligible based on patient's age to complete this topic RSV under 20 months Aged Out No longe r eligible based on patient's age to complete this topic Rotavirus Vaccines Aged Out No longer eligible based on patient's age to complete this topic Procedures Procedure Name Priority Date/Time Associated Diagnosis Comments POCT INFLUENZA B (ID NOW RAPID MOLECULAR) Routine 12/27/2024 2:26 PM EDT Sore throat POCT INFLUENZA A (ID NOW RAPID MOLECULAR) Routine 12/27/2024 2:26 PM EDT Sore throat POCT RAPID STREP A Routine 12/27/2024 2: 25 PM EDT Sore throat POCT RAPID COVID ANTIGEN Routine 12/27/2024 2:25 PM EDT Sore throat HEPATITIS C VIRAL RNA, QUANTITATIVE, REAL-TIME PCR Routine 01/28/2024 11:25 AM EDT Encounter for routine history and physical examination of adult HIV 1/2 ANTIGEN/ANTIBODY, FOURTH GENERATION W/RFL Routine 01/28/2024 11:25 AM EDT Encounter for routine history and physical examination of adult THINPREP IMAGING PAP AND HPV MRNA E6/E7, WITH CT/NG, TRICHOMONAS Routine 04/02/2022 4:27 PM EDT BITEWINGS - 4 RADIOGRAPHIC IMAGES Routine 10/16/2020 12:00 AM EST PERIODIC ORAL EVALUATION - ESTABLISHED PATIENT Routine 10/16/2020 12:00 AM EST PROPHYLAXIS - ADULT Routine 06/30/2019 1 2:00 AM EDT PANORAMIC RADIOGRAPHIC IMAGE Routine 09/30/2017 12:00 AM EST from Last 3 Months or Most Recently Relevant to Health Maintenance Results * Influenza B (ID NOW Rapid Molecular) (12/27/2024 2:26 PM EDT) [facility] Influenza B Negative Negative, Indeterminate [facility] Swab 12/27/2024 2:26 PM EDT Naomi Appra PHONOGRAPH CARTRIDGE ASSEMBLER POINT OF CARE TEST ENTER/EDIT O RDERABLES Final Result Performing Organization Address [facility]/ZIP Co de Phone Number [facility] [address] [place] [phone] * Influenza A (ID NOW Rapid Molecular) (12/27/2024 2:26 PM EDT) [facility] Influenza A Negative Negative, Indeterminate [facility] Swab 12/27/2024 2:26 PM EDT [facility] PHONOGRAPH CARTRIDGE ASSEMBLER POINT OF CARE TEST ENTER/EDIT O RDERABLES Final Result Performing Organization Address [facility] de Phone Number [facility] [address] [place] [phone] * POCT Rapid COVID Ag (12/27/2024 2:25 PM EDT) [facility] Rapid COVID Ag Negative Swab 12/27/2024 2:25 PM EDT [facility] PHONOGRAPH CARTRIDGE ASSEMBLER POINT OF CARE TEST ENTER/EDIT O RDERABLES Final Result * (ABNORMAL) POCT rapid strep A manually resulted (12/27/2024 2:25 PM EDT) [facility] Rapid Strep A Screen Positive( A) Negative, None Detected Swab 12/27/2024 2:25 PM EDT [facility] PHONOGRAPH CARTRIDGE ASSEMBLER POINT OF CARE TEST ENTER/EDIT O RDERABLES Final Result * Hepatitis C Viral RNA, Quantitative, Real-Time PCR (01/28/2024 11:25 AM EDT) Hepatitis C Viral Load <15 NOT DETECTED NOT DETECTED IU/mL [facility] HCV Log PCR <1.18 NOT DETECTED NOT DETECTED Log IU/mL [facility] Comment:This test was perfor med using Real-Time Polymerase ChainReaction.Reportable Range: 15 IU/mL to 100,000,000 IU/mL(1.18 Log IU/mL to 8.00 Log IU/mL).The analytical performance characteristics of thisassay have been determined by [facility].The modifications have not been cleared or approved bythe FDA. This assay has been validated pursuant to theCLIA regulations and is used for clinical purposes.For more information on this test, go to:http://education.Enflick/faq/DUZ66m1(This link is being provided for informational/educational purposes only.)THIS TEST WAS PERFORMED AT:[facility] [place] [phone] TONG MD Blood 01/28/2024 11:2 5 AM EDT 01/28/2024 2:38 PM EDT us Mariela Roland [facility] BLOOD ORDERABLES Final Res ult [facility] [address] [place] [phone] * HIV-1/2 Antigen and Antibodies, Fourth Generation, with Reflexes (01/28/2024 11:25 AM EDT) Pathologist [facility] HIV AB/AG Nonreactive Nonreactive [facility] Comment:HIV-1 p24 Ag and/or HIV-1/HIV-2 Ab not detected.A test result that is nonreactive does not exclude thepossibility of exposure to or infection with HIV-1 and/orHIV-2. Nonreactive results in this assay for individualswith prior exposure to HIV-1 and/or HIV-2 may be due toantigen and antibody levels that are below the limit ofdetection of this assay.The [employer] HIV Ag/Ab Combo assay result andsupplemental assay results should be interpreted inconjunction with the patient's clinical presentation,history and other laboratory results. If the results areinconsistent with clinical evidence, additional testing issuggested to confirm the result. Blood Venous blood specimen / Unknown 01/28/2024 11:25 AM EDT 01/28/2024 2:38 PM EDT Mariela Roland [facility] BLOOD ORDERABLES Final Res ult [facility] [address] [place] [phone] * THINPREP TIS PAP AND HPV mRNA E6/E7, CT/NG, TRICH (04/02/2022 4:27 PM EDT) Chlamydia trachomatis RNA, TMA, Urogenital NOT DETECTED NOT DETECTED [facility] Clinical Information: None given [facility] COMMENT SEE COMMENT [facility] Comment: The analytical performance characteristics of this assay, when used to test SurePath(TM) specimens have been determined by [facility]. The modifications have not been cleared or approved by the FDA. This assay has been validated pursuant to the CLIA regulations and is used for clinical purposes. ?? For additional information, please refer to https://education.Enflick/faq/YCX167 (This link is being provided for information/ educational purposes only.) ?? COMMENT SEE COMMENT [facility] Comment: EXPLANATORY NOTE: ? The Pap is a screening test for cervical cancer. It is ?? not a diagnostic test and is subject to false negative ?? and false positive results. It is most reliable when a ?? satisfactory sample, regularly obtained, is submitted ?? with relevant clinical findings and history, and when ?? the Pap result is evaluated along with historic and ?? current clinical information. ?? COMMENT: This Pap test has been evaluated with computer assisted technology. [facility] Crew Leader: SEE COMMENT [facility] Comment: SL, CT(ASCP) CT screening location: [address] ??[id number] HPV nRNA E6/E7 Not Detected Not Detected [facility] Comment: Methodology: Necktie Maker-Mediated Amplification This assay detects E6/E7 viral messenger RNA (mRNA) from 14 high-risk HPV types (16,18,31,33,35,39,45,51,52,56,58,59,66,68). ? Cervical sources are required for HPV testing. If a vaginal source from a patient who has had a total hysterectomy with removal of cervix was ?? submitted, please contact the testing laboratory for alternative testing options. ?? For additional information, please refer to http://[employer].Enflick/faq/YFJ447j5 (This link if provided for information/ educational purposes only.) Interpretation/Re sult: Negative for intraepithelial lesion or malignancy. [facility] LMP: NONE [facility]IVEN [facility] Neisseria gonorrhoeae RNA, TMA, Urogenital NOT DETECTED NOT DETECTED [facility] Prev. BX: NONE [facility]IVEN [facility] Prev. PAP: NONE [facility]IVEN [facility] SOURCE: None given [facility] Statement Of Adequacy: SEE COMMENT [facility] Comment: Satisfactory for evaluation. Endocervical/transformation zone component present. Age and/or menstrual status not provided Trichomonas vaginalis, QL, TMA, PAP Vial NOT DETECTED NOT DETECTED [facility] Comment: The analytical performance characteristics of this assay have been determined by [facility] [employer]. The modifications have not been cleared or approved by the FDA. This assay has been validated pursuant to the CLIA regulations and is used for clinical purposes. ?? For additional information, please refer to http://[employer].Enflick/ faq/Trichomonastma (This link is being provided for information/ educational purposes only.) ?? 04/02/2022 4:27 PM EDT us Qiana Licona NP LAB PATHOLOGY ORDERABLES Final Result [facility] [address] [place] [id number] from Last 3 Months or Most Recently Relevant to Health Maintenance Insurance [employer]IAL [id number] Care Teams Card Grinder Helper Relationship Specialty Start Date End Date Mariela Roland FNP [address] [place] [address] PCP - General Family Medicine 06/10/22 Darrick Carlton MD [address] [place] [address] 3rd [place] [address] General Surgery 09/12/24 Carlos Patel [address] [place] [address] Gynecology 09/12/24
--- OUTSIDE RECORDS SUMMARY | 2025-01-30 18:03 | XMS_ITS | Encounter Summary ---
Author Organization [facility] Address [address] [facility] 7t [place] [address] Care Team Providers Care Dye Worker Name Role Phone Mariela Roland Primary Care Provider [phone] Darrick Carlton MD Unavailable Carlos Patel Unavailable Encounter Details Date Type Department Care Team (Latest Contact Info) Description 06/30/2019 Abstract [facility] CONVERSIONS Dental, Provider, DDS Social History Tobacco [...] Description 04/23/2025 10:30 AM EDT Office Visit [facility] MED & PEDS 505 [place] [address] Mariela Roland FNP 505 [place] [address] documented as of this encounter Visit Diagnoses Not on filedocumented in this encounter Care Teams Dye Worker Relationship Specialty Start Date End Date Mariela Roland FNP [address] [place] [address] PCP - General Family Medicine 06/10/22 Darrick Carlton MD [address] [place] [address] 3rd [place] [address] General Surgery 09/12/24 Carlos Patel 22 [place] [address] Gynecology 09/12/24 Qiana Leach glue mill operator 08/19/23 01/09/24 documented as of this encounter
[2025-02-02 00:14] LABS: TS Negative Control Passed; TS Panel A 0; TS Panel B 0; TS Positive Control Passed; TSpotTB Negative (Negative)
== END 2025-01-30 15:08 | disposition home or self-care (01) ==
LOC: HO.CHCLDS 15:07
PROVIDERS: Visit Provider Registered Nurse
DX: Z11.1 Encounter for screening for respiratory tuberculosis (principal)
CPT/HCPCS: 36415; 86481

== ENCOUNTER 2025-02-14 10:21 | Outpatient (REF) | payer MEDICAID, SELFPAY ==
--- NOTE | ~2025-02-14 | US_ITS ---
CLINICAL HISTORY: R31.29 - Other microscopic hematuria US Renal Comparison: None Findings: Right kidney normal size and echotexture, 10.2 cm length. Left kidney normal size and echotexture, 11.2 cm length. No collecting system dilatation of either kidney. Normal color Doppler. Urinary bladder is unremarkable. Prevoid volume 150 mL. Postvoid volume 2.6 mL. Bilateral ureteral jets are visualized. IMPRESSION: 1. Normal kidneys. This document has been electronically signed by: Marcello Pisano MD on 02/14/2025 16:42:35
--- OUTSIDE RECORDS SUMMARY | 2025-02-14 11:40 | XMS_ITS | Encounter Summary ---
Author Organization [employer] Address 75 [facility] 7t [place] [address] Care Team Providers Care Construction Crew Member Name Role Phone Mariela Roland Primary Care Provider [phone] Darrick Carlton MD Unavailable Carlos Patel Unavailable Encounter Details Date Type Department Care Team (Latest Contact Info) Description 06/30/2019 Abstract [facility] CONVERSIONS Dental, Provider, DDS Social History [...] Description 04/23/2025 10:30 AM EDT Office Visit [facility] MED & PEDS 505 [place] [address] Mariela Roland FNP 505 [place] [address] documented as of this encounter Visit Diagnoses Not on filedocumented in this encounter Care Teams Construction Crew Member Relationship Specialty Start Date End Date Mariela Roland FNP [address] [place] [address] PCP - General Family Medicine 06/10/22 Darrick Carlton MD [address] [place] [address] 3rd [place] [address] General Surgery 09/12/24 Carlos Patel 22 [place] [address] Gynecology 09/12/24 Qiana Leach RN Care Manager 08/19/23 01/09/24 documented as of this encounter
--- OUTSIDE RECORDS SUMMARY | 2025-02-14 11:40 | XMS_ITS | Encounter Summary ---
Author Organization [employer] Address [address] [facility] 7t [place] [address] Care Team Providers Care Backfiller Name Role Phone Mariela Roland Primary Care Provider [phone] Darrick Carlton MD Unavailable [phone] Carlos Patel Unavailable Encounter Details Date Type Department Care Team (Latest Contact Info) Description 10/16/2020 Abstract [facility] CONVERSIONS Dental, Provider, DDS Social History [...] Description 04/23/2025 10:30 AM EDT Office Visit [facility] MED & PEDS 505 [place] [address] Mariela Roland FNP 505 [place] [address] documented as of this encounter Visit Diagnoses Not on filedocumented in this encounter Care Teams Backfiller Relationship Specialty Start Date End Date Mariela Roland FNP 230 [place] [address] PCP - General Family Medicine 06/10/22 Darrick Carlton MD [address] [place] [address] 3rd [place] [address] General Surgery 09/12/24 Carlos Patel [address] [place] [address] Gynecology 09/12/24 Qiana Leach RN Care Manager 08/19/23 01/09/24 documented as of this encounter
--- OUTSIDE RECORDS SUMMARY | 2025-02-14 11:40 | XMS_ITS | Encounter Summary ---
Author Organization [employer] Address 75 [facility] 7t [place] [address] Care Team Providers Care Police Lieutenant Name Role Phone Mariela Roland Primary Care Provider [phone] Darrick Carlton MD Unavailable [phone] Carlos Patel Unavailable Reason for Visit * Reason Comments Med Change Request Encounter Details Date Type Department Care Team ([facility] Contact Info) Description 11/04/2022 Refill [facility] MEDICINE 230 [place] [address] Mariela Roland FNP 505 [place], [place] [phone] Iron deficiency Social History Tobacco Use Types [...] Description 04/23/2025 10:30 AM EDT Office Visit [facility] CHC MED & PEDS 505 [place], [place] [phone] Mariela Roland FNP [address] [place] [address] documented as of this encounter Visit Diagnoses Diagnosis Iron deficiency Disorders of iron metabolism documented in this encounter Additional Health Concerns Assessment Noted Time PHQ-9 Depression Total Score: 6 09/24/20 22 9:17 AM EST documented as of this encounter Care Teams Police Lieutenant Relationship Specialty Start Date End Date Mariela Roland FNP [address] [place] [address] PCP - General Family Medicine 06/10/22 Darrick Carlton MD [address] [place] [address] 3rd [place] [address] General Surgery 09/12/24 Carlos Patel 22 [place] [address] Gynecology 09/12/24 Qiana Leach RN Care Manager 08/19/23 01/09/24 documented as of this encounter
--- OUTSIDE RECORDS SUMMARY | 2025-02-14 11:40 | XMS_ITS | Clinical Summary ---
Author Organization [employer] Address 75 [facility] 7t [place] [address] Care Team Providers Care Entry Processor Name Role Phone Luan Mariela QUIQUE Primary Care Provider [phone] Darrick Carlton MD Unavailable [phone] Carlos Patel Unavailable Allergies No known [...] BY MOUTH EVERY DAY 90 tablet 1 10/24/20 24 Active ammonium lactate (Amlactin) 12 % [...] CONSTIPATION. 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 Carlton Microscopic hematuria 04/06/2024 Assessment & Plan (05/15/2024 1:03 PM EDT): Following with [facility] Urology - LEELEE Costa Plan: labs and retroperitoneal US follow up in February 2025 with Urology Hematochezia 01/28/2024 Assessment & Plan (01/28/2024 10:45 AM EDT): History of blood in stool Referral to GI placed 12/28/23 Reviewed ED/urgent care precautions Upcoming appt end of January 2024. Healthcare maintenance 12/28/2023 Overview (01/30/2024): Pap: 04/02/22 NIL/HPV neg, repeat due 2026 Optometry: followed by [facility] Last PE: 01/28/24 Anemia during [...] (01/28/2024 7:24 AM EDT): -Previously followed by [facility] Derm team and tx with Minoxidil (although discontinued use during ) Assessment & Plan (12/26/2023 6:23 PM EDT): -Minoxodil not advised during -Refill of betamethasone, although advised of risks and SE of rat exterminator use. Pt to use sparingly PRN Assessment & Plan (01/26/2023 1:18 PM EDT): -Minoxodil not advised during -Refill of betamethasone, although advised of risks and SE of half-way use. Pt to use sparingly PRN Assessment & Plan (12/04/2022 9:44 AM EST): -Discontinue Betamethasone and initiate 5% Minoxidil Foam to use 1-2x daily. -Reassured patient, this will self-resolve. Assessment & Plan (10/05/2022 8:26 PM EST): -Follow up with Derm as scheduled Nov 2021 -Confirmed with [facility] Derm team they have the ability to [...] Plan (01/28/2024 7:26 AM EDT): -Following with [facility] GI -Continues with pantoprazole 40mg daily and sucralfate (through GI) Assessment & Plan (10/05/2022 8:22 PM EST): -Following with [facility] GI -Continues with pantoprazole 40mg daily and [...] request for neb machine: 12/28/23 (faxed to [facility]) - recieved Assessment & Plan (12/28/2023 12:10 [...] problem list. Recently had Level II at [facility], results reviewed. She has a repeat [...] Encounters Date Type Department Care Team Description 02/08/2025 Telephone [facility] MED & PEDS [address] [place] [address] Mariela Roland FNP Results 01/30/2025 Telephone [facility] MEDICINE [address] [place] [address] Mariela Roland FNP Lab Orders 01/26/2025 1:40 PM EDT Office Visit [facility] [address] [place] [address] Sadaf Mercado FNP Chalazion left upper eyelid (Primary Dx) 01/22/2025 Telephone [facility] MED & PEDS [address] [place] [address] Mariela Roland FNP Lab Orders 01/18/2025 Telephone [facility] MED & PEDS [address] [place], [place] [phone] Mariela Roland FNP January01/03/2025 Population Health Risk Score [facility] ([facility] Department [address] [place] [address], [place] [address] Provider, Population Health Generic 12/27/2024 2:40 PM EDT Office Visit [facility] [address] [place], [place] [phone] Naomi Mallory NP Strep pharyngitis (Primary Dx); Sore throat; Diarrhea in adult patient 11/28/2024 Telephone [facility] MED & PEDS [address] [place] [address] Mariela Roland FNP November recall 11/17/2024 Refill [facility] MED & PEDS [address] [place], [place] [phone] Mariela Roland FNP Other hemorrhoids; Constipation, unspecified [...] the past 12 months, has t he [employer] gas, oil or water company threatened to [...] Description 04/23/2025 10:30 AM EDT Office Visit [facility] MED & PEDS [address] [place] [address] Mariela Roland FNP 505 [place] [address] Health Maintenance Due Date Last Done Comments Alcohol/Substance Use Screening 1999 Family Planning (PISQ) 2002 Dental Prophylaxis 12/30/2019 06/30/2019, 0 12/27/2018, 05/26/2018, Additional history exists Dental X-Ray: Full Mouth 10/01/2020 09/30/2017, 07/12 DTaP/Tdap/Td Vaccines (2 - Td or Tdap) 02/11/2021 02/11/2011 Dental Oral Exam 04/16/2021 10/16/2020, , 01/11/2019, Additional history exists Dental X-Ray: Bitewings 10/17/2021 10/16/19 21, 05/07/2020, 06/30/2019, Additional history exists SDOH Screening [...] 75+ series) 2062 HPV Vaccines Completed 09/02/2010, 05/2010, 07/18/2009 Hepatitis B Vaccines Completed 08/28/2016, [...] Procedure Name Priority Date/Time Associated Diagnosis Comments T-SPOT(R).TB Routine 01/30/2025 3:11 PM EDT Screening due POCT INFLUENZA B (ID NOW RAPID MOLECULAR) [...] Recently Relevant to Health Maintenance Results * T-SPOT??.TB (01/30/2025 3:11 PM EDT) T Spot TB Negative Negative [facility] Comment:A negative test resu lt does not exclude the possibilityof exposure to or infection with Mycobacteriumtuberculosis (M. tuberculosis). Patients with recentexposure to TB infected individuals exhibiting anegative T-SPOT.TB result should be considered forretesting within 6 weeks or if other relevant clinicalsymptoms indicate. Results from T-SPOT.TB testing mustbe used in conjunction with each individual'sepidemiological history, current medical status,and results of other diagnostic evaluations.The T-SPOT.TB test is qualitative and results arereported as positive, borderline, or negative, giventhat the test controls perform as expected. In linewith the Centers for Disease Control and Prevention's2010 recommendation to report quantitative measurementsalongside the qualitative result, the laboratoryprovides spot counts for informational purposes only.The T-SPOT.TB test should not be interpreted as aquantitative test. TS PANEL A 0 [facility] TS PANEL B 0 [facility] Negative Control Passed [facility] Positive Control Passed [facility] Comment:For additional infor parisa, please refer tohttp://education.[employer]/faq/OBY302(This link is being provided for informational/educational purposes only.)REPORT COMMENT:REC'D IN Q-CHYTHIS TEST WAS PERFORMED AT:[employer]/[facility] [place] [address]RGVDNBFDAREN BAJWA MD,PHD 01/30/2025 3:11 PM EDT 01/30/2025 6:13 PM EDT us Mariela Roland MAINTENANCE COORDINATOR LAB BLOOD ORDERABLES Final Res ult [facility] [address] [place] [phone] * Influenza B (ID NOW Rapid Molecular) (12/27/2024 2:26 PM EDT) [facility] Influenza B Negative Negative, Indeterminate [facility] Swab 12/27/2024 2:26 PM EDT Naomi Giron [employer] LABORER POINT OF CARE TEST ENTER/EDIT O RDERABLES Final Result Performing Organization Address [facility]/ZIP Co de Phone Number [facility] [address] [place] [phone] * Influenza A (ID NOW Rapid Molecular) (12/27/2024 2:26 PM EDT) [facility] Influenza A Negative Negative, Indeterminate [facility] Swab 12/27/2024 2:26 PM EDT [facility] [employer] [employer] LABORER POINT OF CARE TEST ENTER/EDIT O RDERABLES Final Result Performing Organization Address [facility] Co de Phone Number [facility] [address] [place] [phone] * POCT Rapid COVID Ag (12/27/2024 2:25 PM EDT) [facility] Rapid COVID Ag Negative Swab 12/27/2024 2:25 PM EDT [facility] [employer] LABORER POINT OF CARE TEST ENTER/EDIT O RDERABLES Final Result * (ABNORMAL) POCT rapid strep A manually resulted (12/27/2024 2:25 PM EDT) [facility] Rapid Strep A Screen Positive( A) Negative, None Detected Swab 12/27/2024 2:25 PM EDT [facility] [employer] LABORER POINT OF CARE TEST ENTER/EDIT O RDERABLES Final Result * Hepatitis C Viral RNA, Quantitative, Real-Time PCR (01/28/2024 11:25 AM EDT) Pathologist [facility] Hepatitis C Viral Load <15 NOT DETECTED NOT DETECTED IU/mL [facility] HCV Log PCR <1.18 NOT DETECTED NOT DETECTED Log IU/mL [facility] Comment:This test was perfor med using Real-Time Polymerase ChainReaction.Reportable Range: 15 IU/mL to 100,000,000 IU/mL(1.18 Log IU/mL to 8.00 Log IU/mL).The analytical performance characteristics of thisassay have been determined by [employer].The modifications have not been cleared or approved bythe FDA. This assay has been validated pursuant to theCLIA regulations and is used for clinical purposes.For more information on this test, go to:http://education.[employer] Engine/faq/PVI55l9(This link is being provided for informational/educational purposes only.)THIS TEST WAS PERFORMED AT:[employer] [place] [id number] TONG MD Blood 01/28/2024 11:2 5 AM EDT 01/28/2024 2:38 PM EDT us Mariela Roland [facility] LAB BLOOD ORDERABLES Final Res ult [facility] [address] [place] [phone] * HIV-1/2 Antigen and Antibodies, Fourth Generation, with Reflexes (01/28/2024 11:25 AM EDT) Pathologist [facility] HIV AB/AG Nonreactive Nonreactive [facility] Comment:HIV-1 p24 Ag and/or HIV-1/HIV-2 Ab not detected.A test result that is nonreactive does not exclude thepossibility of exposure to or infection with HIV-1 and/orHIV-2. Nonreactive results in this assay for individualswith prior exposure to HIV-1 and/or HIV-2 may be due toantigen and antibody levels that are below the limit ofdetection of this assay.The [employer] HIV Ag/Ab Combo assay result andsupplemental assay results should be interpreted inconjunction with the patient's clinical presentation,history and other laboratory results. If the results areinconsistent with clinical evidence, additional testing issuggested to confirm the result. Blood Venous blood specimen / Unknown 01/28/2024 11:25 AM EDT 01/28/2024 2:38 PM EDT us Mariela Roland MAINTENANCE COORDINATOR LAB BLOOD ORDERABLES Final Res ult [facility] [address] [place] [phone] * THINPREP TIS PAP AND HPV mRNA E6/E7, CT/NG, TRICH (04/02/2022 4:27 PM EDT) Chlamydia trachomatis RNA, TMA, Urogenital NOT DETECTED NOT DETECTED [facility] Clinical Information: None given [facility] COMMENT SEE COMMENT [facility] Comment: The analytical performance characteristics of this assay, when used to test SurePath(TM) specimens have been determined by [employer]. The modifications have not been cleared or approved by the FDA. This assay has been validated pursuant to the CLIA regulations and is used for clinical purposes. ?? For additional information, please refer to https://education.[employer]/faq/GRT393 (This link is being provided for information/ [...] been evaluated with computer assisted technology. [facility] Rippler: SEE COMMENT [facility] Comment: SL, CT(ASCP) CT screening location: [address] ??[phone] HPV nRNA E6/E7 Not Detected Not Detected [facility] Comment: Methodology: Electrical Accessories Assembler-Mediated Amplification This assay detects E6/E7 viral messenger RNA (mRNA) from 14 high-risk HPV types (16,18,31,33,35,39,45,51,52,56,58,59,66,68). ? Cervical sources are required for HPV testing. If a vaginal source from a patient who has had a total hysterectomy with removal of cervix was ?? submitted, please contact the testing laboratory for alternative testing options. ?? For additional information, please refer to http://[employer]HP.[employer]/faq/BDM770w9 (This link if provided for information/ educational [...] of this assay have been determined by [employer]. The modifications have not been cleared or approved by the FDA. This assay has been validated pursuant to the CLIA regulations and is used for clinical purposes. ?? For additional information, please refer to http://[employer]HP.[employer]/ faq/Trichomonastma (This link is being provided for information/ educational purposes only.) ?? 04/02/2022 4:27 PM EDT us Qiana Licona NP LAB PATHOLOGY ORDERABLES Final Result [facility] [address] from Last 3 Months or Most Recently Relevant to Health Maintenance Insurance [facility] Care Teams Entry Processor Relationship Specialty Start Date End Date Mariela Roland FNP [address] [place] [phone] PCP - General Family Medicine 06/10/22 Darrick Carlton MD [address] [place] [address] 3rd [place] [address] General Surgery 09/12/24 Carlos Patel [address] [place] [address] Gynecology 09/12/24
--- OUTSIDE RECORDS SUMMARY | 2025-02-14 11:40 | XMS_ITS | Encounter Summary ---
Author Organization [employer] Address [address]t [place] [address] Care Team Providers Care Data Integrity Consultant Name Role Phone Mariela Roland Primary Care Provider [phone] Darrick Carlton MD Unavailable [phone] Carlos Patel Unavailable Encounter Details Date Type Department Care Team ([facility] Contact Info) Description 04/06/2024 Telephone [facility] MED & PEDS [address] [place], [place] [phone] Mariela Roland FNP [address] [place] [address] Social History Tobacco Use Types Packs/Day Years [...] Please review and advise for below message. [facility] is requesting notes to be faxed. Please advise whennotes is complete. * Telephone Encounter - Kathy Huerta - 04/06/2024 2:12 PM EDT Narendra Sewell with [facility] general surgery requesting 04/05 OV notes to be faxed to [phone]. documented in this encounter Plan of Treatment Upcoming Encounters Date Type Department Care Team (Late st Contact Info) Description 04/23/2025 10:30 AM EDT Office Visit [facility] [address] [place] [address] Mariela Roland FNP [address] [place] [address] documented as of this encounter Visit Diagnoses Not on filedocumented in this encounter Additional Health Concerns Assessment Noted Time PHQ-9 Depression Total Score: 2 01/30/20 24 8:40 AM EDT documented as of this encounter Care Teams Data Integrity Consultant Relationship Specialty Start Date End Date Mariela Roland FNP [address] [place] [address] PCP - General Family Medicine 06/10/22 Darrick Carlton MD [address] [place] [address] 3rd [place] [address] General Surgery 09/12/24 Carlos Patel [address] [place] [address] Gynecology 09/12/24 documented as of this encounter
== END 2025-02-14 10:22 | disposition home or self-care (01) ==
LOC: HO.US 10:21
PROVIDERS: PCP Registered Nurse; Visit Provider Nurse Practitioner Family
DX: R31.29 Other microscopic hematuria (principal)
CPT/HCPCS: 76770

== ENCOUNTER → 2025-02-14 10:23 | Outpatient (BNV) | payer MEDICAID, SELFPAY | PROVIDERS: PCP Registered Nurse; Visit Provider Nuclear Medicine | DX: R31.29 Other microscopic hematuria (principal) | CPT/HCPCS: 76770 ==

== ENCOUNTER 2025-02-21 15:22 | Outpatient (AMB) | payer MEDICAID, SELFPAY ==
--- OUTSIDE RECORDS SUMMARY | 2025-02-21 15:25 | XMS_ITS | Encounter Summary ---
Author Organization [employer] Address 75 [facility] 7t [place] [address] Care Team Providers Care Rn Gynecology Name Role Phone Mariela Roland Primary Care Provider [phone] Darrick Carlton MD Unavailable [phone] Carlos Patel Unavailable Encounter Details Date Type Department Care Team (Latest Contact Info) Description 06/30/2019 Abstract [facility] CONVERSIONS Dental, Provider, DDS Social History [...] Description 04/23/2025 10:30 AM EDT Office Visit [facility] MED & PEDS [address] [place] [address] Mariela Roland FNP [address] [place] [address] documented as of this encounter Visit Diagnoses Not on filedocumented in this encounter Care Teams Rn Gynecology Relationship Specialty Start Date End Date Mariela Roland FNP [address] [place] [address] PCP - General Family Medicine 06/10/22 Darrick Carlton MD [address] [place] [address] 3rd [place] [address] General Surgery 09/12/24 Carlos Patel [address] [place] [address] Gynecology 09/12/24 Qiana Leach RN Care Manager 08/19/23 01/09/24 documented as of this encounter
--- OUTSIDE RECORDS SUMMARY | 2025-02-21 15:25 | XMS_ITS | Clinical Summary ---
Author Organization [employer] Address [address] [facility] 7t [place] [address] Care Team Providers Care Magnetizer Name Role Phone Luan Mariela QUIQUE Primary Care Provider [phone] Darrick Carlton MD Unavailable [phone] Carlos Patel Unavailable Allergies No known [...] 2: April 2024 & Jul 2024 at [facility] Surgery - Dr. Carlton Microscopic hematuria 04/06/2024 Assessment & Plan (05/15/2024 1:03 PM EDT): Following with [facility] Urology - LEELEE Costa Plan: labs and retroperitoneal US follow up in February 2025 with Urology Hematochezia 01/28/2024 Assessment & Plan (01/28/2024 10:45 AM EDT): History of blood in stool Referral to GI placed 12/28/23 Reviewed ED/urgent care precautions Upcoming appt end of January 2024. Healthcare maintenance 12/28/2023 Overview (01/30/2024): Pap: 04/02/22 NIL/HPV neg, repeat due 2026 Optometry: followed by [facility] Eye Care Last PE: 01/28/24 Anemia during [...] (01/28/2024 7:24 AM EDT): -Previously followed by [facility] Derm team and tx with Minoxidil (although discontinued use during ) Assessment & Plan (12/26/2023 6:23 PM EDT): -Minoxodil not advised during -Refill of betamethasone, although advised of risks and SE of group home use. Pt to use sparingly PRN Assessment & Plan (01/26/2023 1:18 PM EDT): -Minoxodil not advised during -Refill of betamethasone, although advised of risks and SE of group home use. Pt to use sparingly PRN Assessment & Plan (12/04/2022 9:44 AM EST): -Discontinue Betamethasone and initiate 5% Minoxidil Foam to use 1-2x daily. -Reassured patient, this will self-resolve. Assessment & Plan (10/05/2022 8:26 PM EST): -Follow up with Derm as scheduled Nov 2021 -Confirmed with [facility] Derm team they have the ability to [...] Plan (01/28/2024 7:26 AM EDT): -Following with [facility] GI -Continues with pantoprazole 40mg daily and sucralfate (through GI) Assessment & Plan (10/05/2022 8:22 PM EST): -Following with [facility] GI -Continues with pantoprazole 40mg [...] request for neb machine: 12/28/23 (faxed to [facility]) - recieved Assessment & Plan (12/28/2023 12:10 [...] problem list. Recently had Level II at [facility], results reviewed. She has a repeat scheduled [...] Encounters Date Type Department Care Team Description 02/14/2025 Orders Only [facility] External Provider, [facility] 02/08/2025 Telephone [facility] [address] [place] [address] Mariela Roland FNP Results 01/30/2025 Telephone [facility] MEDICINE [address] [place] [address] Mariela Roland FNP Lab Orders 01/26/2025 1:40 PM EDT Office Visit [facility] W[facility] [address] [place] [address] Sadaf Mercado FNP Chalazion left upper eyelid (Primary Dx) 01/22/2025 Telephone [facility] [address] [place] [address] Mariela Roland FNP Lab Orders 01/18/2025 Telephone [facility] [address] [place] [address] Mariela Roland FNP January recall 01/03/2025 Population Health Risk [facility] Department [address] [place] [phone] Provider, Population Health Generic 12/27/2024 2:40 PM EDT Office Visit [facility] WALK[facility]IN CENTER [address] [place] [address] Naomi Mallory, KIRK Strep pharyngitis (Primary Dx); Sore throat; Diarrhea in adult patient 11/28/2024 Telephone [facility] CHC MED & PEDS [address] [place] [address] Mariela Roland FNP November recall from Last 3 Months Immunizations Immunization Administration Dates Next Due HPV, Quadrivalent 09/02/2010,12/16/2009,07/18/20 [...] 10:30 AM EDT Office Visit [facility] [address] [place] [address] Mariela Roland FNP [address] [place] [address] Health Maintenance Due Date Last Done Comments [...] Procedure Name Priority Date/Time Associated Diagnosis Comments US RETROPERITONEAL COMPLETE Routine 02/14/2025 4:42 PM EDT AMB REFERRAL TO OPHTHALMOLOGY Routine 02/07/2025 Chalazion left upper eyelid T-SPOT(R).TB Routine 01/30/2025 3:11 PM EDT Screening [...] Recently Relevant to Health Maintenance Results * US Retroperitoneal Complete (02/14/2025 4:42 PM EDT) Anatomical Region Laterality Modality Ultrasound 02/14/2025 4:42 PM EDT Narrative 02/14/2025 4:44 PM EDT ? [facility] ?[address] ?[place] [address] ? Ultrasound Report ? Signed ? Patient: Ligia Quezada,Mariaelena ?MR#: [id number] ?? [id number] ? : 1985 ?Acct:[id number] ? Age/Sex: 39 / F ?ADM Date: 02/14/25 ? Loc: HO.US ? Attending Dr: Alexandra KRAFT ? Ordering Physician: Alexandra Costa ?? Date of Service: 02/14/25 ?? Procedure(s): US retroperitoneal comp ?? Accession Number(s): [id number] ? cc: Alexandra Costa; Mariela Rolnad ? CLINICAL HISTORY: R31.29 - Other microscopic hematuria ? US Renal ? Comparison: None ? Findings: ?? Right kidney normal size and echotexture, 10.2 cm length. ?? Left kidney normal size and echotexture, 11.2 cm length. ?? No collecting system dilatation of either kidney. ?? Normal color Doppler. ? Urinary bladder is unremarkable. Prevoid volume 150 mL. Postvoid volume ?? 2.6 mL. ?? Bilateral ureteral jets are visualized. ? IMPRESSION: ?? 1. Normal kidneys. ? This document has been electronically signed by: Marcello Pisano MD on ?? 02/14/2025 16:42:35 ? Dictated By: ?Marcello Pisano MD ? Signed By: ?<Electronically signed by Marcello Pisano MD in OV> ? 02/14/25 1643 ? DD/ 41 ? TD/TT: 02/14/252 ? Etl Tester: ? Procedure Note Haley Farias - 02/14/[address] [address] Ultrasound Report Signed Patient: Dav Calles#: [id number] : 1985Acct:[id number] Age/Sex: 39 / FADM Date: 02/14/25 Loc: HO.US Attending Dr[facility] Ordering Physician: Alexandra Costa Date of Service: 02/14/25 Procedure(s): US retroperitoneal comp Accession Number(s): [id number] cc: [facility]; Mariela Roland [facility] CLINICAL HISTORY: R31.29 - Other microscopic hematuria US Renal Comparison: None Findings: Right kidney normal size and echotexture, 10.2 cm length. Left kidney normal size and echotexture, 11.2 cm length. No collecting system dilatation of either kidney. Normal color Doppler. Urinary bladder is unremarkable. Prevoid volume 150 mL. Postvoid volume 2.6 mL. Bilateral ureteral jets are visualized. IMPRESSION: 1. Normal kidneys. This document has been electronically signed by: Marcello Pisano MD on 02/14/2025 16:42:35 Dictated By: Marcello Pisano MD Signed By: <Electronically signed by Marcello Pisano MD in OV> 02/14/25 1643 DD/ 1642 TD/TT: 02/14/25 1642 Etl Tester: [facility] External Provider IMG US PROCEDURES Final Result * Referral to Ophthalmology (02/07/2025) [facility] OUTPATIENT REFERRAL ORDERABLE S Final Result * T-SPOT??.TB (01/30/2025 3:11 PM EDT) T Spot TB Negative Negative [facility] Comment:A negative test resu [...] as aquantitative test. TS PANEL A 0 [facility] TS PANEL B 0 [facility] Negative Control Passed [facility] Positive Control Passed [facility] Comment:For additional infor mation, please refer tohttp://education.Property Owl/faq/VRB937(This link is being provided for informational/educational purposes only.)REPORT COMMENT:REC'D IN Q-CHYTHIS TEST WAS PERFORMED AT:[employer] [id number] [place] [address]ZPTOEVODAREN BAJWA MD,PHD 01/30/2025 3:11 PM EDT 01/30/2025 6:13 PM EDT Mariela Roland KITCHEN CLERK LAB BLOOD ORDERABLES Final Res ult Performing Organization Address [facility]/ZIP Co de Phone Number [facility] [address] [place] [phone] * Influenza B (ID NOW Rapid Molecular) (12/27/2024 2:26 PM EDT) Influenza B Negative Negative, Indeterminate [facility] Swab 12/27/2024 2:26 PM EDT us Naomi Mallory NP POINT OF CARE TEST ENTER/EDIT O RDERABLES Final Result Performing Organization Address [facility]/ZIP Co de Phone Number [facility] [address] [place] [phone] * Influenza A (ID NOW Rapid Molecular) (12/27/2024 2:26 PM EDT) [facility] Influenza A Negative Negative, Indeterminate [facility] Swab 12/27/2024 2:26 PM EDT [facility] MORN[facility] POINT OF CARE TEST ENTER/EDIT O RDERABLES Final Result [facility] [address] [place] [phone] * POCT Rapid COVID Ag (12/27/2024 2:25 PM EDT) [facility] Rapid COVID Ag Negative Swab 12/27/2024 2:25 PM EDT [facility] EARLY MORNING POINT OF CARE TEST ENTER/EDIT O RDERABLES Final Result * (ABNORMAL) POCT rapid strep A manually resulted (12/27/2024 2:25 PM EDT) [facility] Rapid Strep A Screen Positive( A) Negative, None Detected Swab 12/27/2024 2:25 PM EDT [facility] EARLY MORNING POINT OF CARE TEST ENTER/EDIT O RDERABLES Final Result * Hepatitis C Viral RNA, Quantitative, Real-Time PCR (01/28/2024 11:25 AM EDT) [facility] Hepatitis C Viral Load <15 NOT DETECTED NOT DETECTED IU/mL [facility] HCV Log PCR <1.18 NOT DETECTED NOT DETECTED Log IU/mL [facility] Comment:This test was perfor med using Real-Time Polymerase ChainReaction.Reportable Range: 15 IU/mL to 100,000,000 IU/mL(1.18 Log IU/mL to 8.00 Log IU/mL).The analytical performance characteristics of thisassay have been determined by [facility].The modifications have not been cleared or approved bythe FDA. This assay has been validated pursuant to theCLIA regulations and is used for clinical purposes.For more information on this test, go to:http://education.[employer]./faq/VXH90c1(This link is being provided for informational/educational purposes only.)THIS TEST WAS PERFORMED AT:[facility] [place] [id number] TONG MD Blood 01/28/2024 11:2 5 AM EDT 01/28/2024 2:38 PM EDT Mariela Mendezshanti KITCHEN CLERK LAB BLOOD ORDERABLES Final Res ult Performing Organization Address [facility]/State/ZIP Co de Phone Number [facility] [address] [place] [phone] * HIV-1/2 Antigen and Antibodies, Fourth Generation, with Reflexes (01/28/2024 11:25 AM EDT) HIV AB/AG Nonreactive Nonreactive [facility] Comment:HIV-1 p24 Ag and/or HIV-1/HIV-2 Ab not detected.A test result that is nonreactive does not exclude thepossibility of exposure to or infection with HIV-1 and/orHIV-2. Nonreactive results in this assay for individualswith prior exposure to HIV-1 and/or HIV-2 may be due toantigen and antibody levels that are below the limit ofdetection of this assay.[employer] HIV Ag/Ab Combo assay result andsupplemental assay results should be interpreted inconjunction with the patient's clinical presentation,history and other laboratory results. If the results areinconsistent with clinical evidence, additional testing issuggested to confirm the result. Blood Venous blood specimen / Unknown 01/28/2024 11:25 AM EDT 01/28/2024 2:38 PM EDT Mariela Roland KITCHEN CLERK LAB BLOOD ORDERABLES Final Res ult Performing Organization Address [facility]/ZIP Co de Phone Number [facility] [address] [place] [phone] * THINPREP TIS PAP AND HPV mRNA E6/E7, CT/NG, TRICH (04/02/2022 4:27 PM EDT) Chlamydia trachomatis RNA, TMA, Urogenital NOT DETECTED NOT DETECTED [facility] Clinical Information: None given [facility] COMMENT SEE COMMENT [facility] Comment: The analytical performance characteristics of this assay, when used to test SurePath(TM) specimens have been determined by [facility]. The modifications have not been cleared or approved by the FDA. This assay has been validated pursuant to the CLIA regulations and is used for clinical purposes. ?? For additional information, please refer to https://Dp[employer]ision.Property Owl/faq/MBF689 (This link is being provided for information/ [...] has been evaluated with computer assisted technology. [facility] Sausage Meat Trimmer: SEE COMMENT [facility] Comment: SL, CT(ASCP) CT screening location: [address] ??[phone] HPV nRNA E6/E7 Not Detected Not Detected [facility]se Comment: Methodology: Habilitation Specialist-Mediated Amplification This assay detects E6/E7 viral messenger RNA (mRNA) from 14 high-risk HPV types (16,18,31,33,35,39,45,51,52,56,58,59,66,68). ? Cervical sources are required for HPV testing. If a vaginal source from a patient who has had a total hysterectomy with removal of cervix was ?? submitted, please contact the testing laboratory for alternative testing options. ?? For additional information, please refer to http://Dp[employer]ision.Property Owl/faq/BYI621v9 (This link if provided for information/ educational [...] of this assay have been determined by [facility]. The modifications have not been cleared or approved by the FDA. This assay has been validated pursuant to the CLIA regulations and is used for clinical purposes. ?? For additional information, please refer to http://education.Property Owl/ faq/Trichomonastma (This link is being provided for information/ educational purposes only.) ?? 04/02/2022 4:27 PM EDT us Qiana Licona NP LAB PATHOLOGY ORDERABLES Final Result [facility] [address] from Last 3 Months or Most Recently Relevant to Health Maintenance Insurance [employer]SN [employer]IAL [id number] Care Teams Magnetizer Relationship Specialty Start Date End Date Mariela Roland FNP [address] [place] [phone] PCP - General Family Medicine 06/10/22 Darrick Carlton MD [address] [place] [address] 3rd [place] [address] General Surgery 09/12/24 Carlos Patel [address] [place] [address] Gynecology 09/12/24
--- OUTSIDE RECORDS SUMMARY | 2025-02-21 15:25 | XMS_ITS | Encounter Summary ---
Author Organization [employer] Address [address] [facility] 7t [place] [address] Care Team Providers Care Day Habilitation Supervisor Name Role Phone Mariela Roland Primary Care Provider [phone] Darrick Carlton MD Unavailable [phone] Carlos Patel Unavailable Reason for Visit * Reason Comments Med Change Request Encounter Details Date Type Department Care Team ([facility] Contact Info) Description 11/04/2022 Refill [facility] MEDICINE [address] [place] [address] Mariela Roland FNP [address] [place], [place] [phone] Iron deficiency Social History Tobacco Use Types [...] Description 04/23/2025 10:30 AM EDT Office Visit [facility] MED & PEDS [address] [place], [place] [phone] Mariela Roland FNP [address] [place] [address] documented as of this encounter Visit Diagnoses Diagnosis Iron deficiency Disorders of iron metabolism documented in this encounter Additional Health Concerns Assessment Noted Time PHQ-9 Depression Total Score: 6 09/24/20 22 9:17 AM EST documented as of this encounter Care Teams Day Habilitation Supervisor Relationship Specialty Start Date End Date Mariela Roland FNP [address] [place] [address] PCP - General Family Medicine 06/10/22 Darrick Carlton MD [address] [place] [address] 3rd [place] [address] General Surgery 09/12/24 Carlos Patel [address] [place] [address] Gynecology 09/12/24 Qiana Leach RN Care Manager 08/19/23 01/09/24 documented as of this encounter
--- OUTSIDE RECORDS SUMMARY | 2025-02-21 15:25 | XMS_ITS | Encounter Summary ---
Author Organization [employer] Address [address] [facility] [address] 7[address] [place] [address] Care Team Providers Care Clinical Trials Systems Administrator Name Role Phone Mariela Roland Primary Care Provider [phone] Darrick Carlton MD Unavailable [phone] Carlos Patel Unavailable Encounter Details Date Type Department Care Team ([facility] Contact Info) Description 04/06/2024 Telephone [facility] [address] [place], [place] [phone] Mariela Roland FNP [address] [place] [address] Social History Tobacco Use Types Packs/Day Years [...] Please review and advise for below message. [facility] is requesting notes to be faxed. Please advise whennotes is complete. * Telephone Encounter - Kathy Huerta - 04/06/2024 2:12 PM EDT Narendra Sewell with [facility] general surgery requesting 04/05 OV notes to be faxed to [phone]. documented in this encounter Plan of Treatment Upcoming Encounters Date Type Department Care Team (Late st Contact Info) Description 04/23/2025 10:30 AM EDT Office Visit [facility] [address] [place] [address] Mariela Roland FNP [address] [place] [address] documented as of this encounter Visit Diagnoses Not on filedocumented in this encounter Additional Health Concerns Assessment Noted Time PHQ-9 Depression Total Score: 2 01/30/20 24 8:40 AM EDT documented as of this encounter Care Teams Clinical Trials Systems Administrator Relationship Specialty Start Date End Date Mariela Roland FNP [address] [place] [address] PCP - General Family Medicine 06/10/22 Darrick Carlton MD [address] [place] [address] 3rd [place] [address] General Surgery 09/12/24 Carlos Patel [address] [place] [address] Gynecology 09/12/24 documented as of this encounter
--- OUTSIDE RECORDS SUMMARY | 2025-02-21 15:25 | XMS_ITS | Encounter Summary ---
Author Organization [employer] Address [address] [facility] 7t [place] [address] Care Team Providers Care President & Founder Name Role Phone Mariela Roland Primary Care Provider [phone] Darrick Carlton MD Unavailable [phone] Carlos Patel Unavailable Encounter Details Date Type Department Care Team (Latest Contact Info) Description 10/16/2020 Abstract [facility] CONVERSIONS Dental, Provider, DDS Social History Tobacco [...] Description 04/23/2025 10:30 AM EDT Office Visit [facility] CHC MED & PEDS [address] [place] [address] Mariela Roland FNP [address] [place] [address] documented as of this encounter Visit Diagnoses Not on filedocumented in this encounter Care Teams President & Founder Relationship Specialty Start Date End Date Mariela Roland FNP [address] [place] [address] PCP - General Family Medicine 06/10/22 Darrick Carlton MD [address] [place] [address] 3rd [place] [address] General Surgery 09/12/24 Carlos Patel [address] [place] [address] Gynecology 09/12/24 Qiana Leach RN Care Manager 08/19/23 01/09/24 documented as of this encounter
--- NOTE | 2025-02-21 15:26 | A.OFFVIS_ITS ---
Intake Visit Reasons: 1y/US/labs Intake Note: Pt presents to the office today for a 1 year follow up/US/Labs Allergies No Known Allergies Allergy (Verified 02/21/25 15:28) HPI Comments Details: Mariaelena is a pleasant 39-year-old female patient. She has a past medical history of GERD, gestational diabetes, habitual snoring, epidermal cysts, lower your office asthma, and hydradenitis. She presents to the office today for a follow up of her microscopic hematuria. In discussion with the patient today she reports to be doing and feeling well. She denies having had any bothersome urinary issues or concerns since her last office visit here a year ago. Recent retroperitoneal ultrasound results were reviewed with the patient today. 03/04 bilateral kidneys are normal in size and echotexture. No collecting system dilatation of either kidney. Normal color Doppler. The urinary bladder is unremarkable. Bilateral jets are visualized. Urine cytology 12/31 Negative for high-grade urothelial carcinoma. Previous workup has included a CT urogram 10/01 noting kidneys and ureters are normal in size and shape. No hydronephrosis, hydroureter, or calculi seen. The bladder is unremarkable. When asked patient reports longstanding history of recreational marijuana use. She reports having stopped recreational marijuana use while however has since resumed. Discussed at length potential causes of microscopic hematuria as well as further intervention to include cystoscopy. When asked she currently denies urinary urgency, urinary frequency, incontinence, nocturia, hematuria, dysuria, foul smelling urine, changes to urinary stream, flank pain, fever, and or chills. In office urinalysis results reviewed with the patient today. All questions were answered. She otherwise offers no other issues or concerns at this time. ? [facility] Medical History GERD (gastroesophageal reflux disease) Gestational diabetes Habitual snoring Aerophagia Epidermal cyst Acid reflux Hydradenitis Asthma Surgical History History of surgery (04/26/24) History of esophagogastroduodenoscopy (EGD) Hx of section History of incision and drainage Social History Household Members Other:: Lives alone no children Are you a primary care management specialist to a significant other at home: Yes Do you presently have visiting nurse or other home services: No Patient Tobacco Use Status: Never used Tobacco Second Hand Smoke Exposure: No 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 Review of Systems Const All systems reviewed & are unremarkable except as noted in HPI and below Physical Exam Const General: cooperative, healthy appearing, comfortable, no acute distress, well developed, alert and awake Nutritional Appearance: average body habitus Orientation/consciousness: patient oriented x3 Limitations: no limitations HEENT Head: Yes normal to inspection, Yes normocephalic and Yes atraumatic Ears: hearing grossly normal bilaterally Eyes General: appearance normal, both eyes and all related structures Neck Neck: Yes normal visual inspection and Yes trachea midline Chest Chest palpation & inspection: normal inspection of the chest Resp Effort & Inspection: normal respiratory effort and able to speak in complete sentences Cardio Rate: regular rate GI Inspection: Yes normal to inspection General: Yes no CVA tenderness Back/Spine/Pelvis Back: no CVA tenderness Skin General skin exam: no rashes or lesions noted Neuro General: patient oriented x3 Extrem General: Yes normal to inspection Psych Appearance: grossly normal and well kempt Mental Status: mental status grossly normal Speech and movement: Normal speech and movement present and Clear speech present Affect: normal affect Attitude: cooperative Thought process: Normal thought process present Thought content: Normal thought content present Insight: Fair insight present (Psych) Judgement: Fair judgement present (Psych) Results AMB Urinalysis, Automated UA Leukoctes 0 Lv/uL Last Edit by Slivia Fuller CMA on 02/21/25 15:34 UA Nitrite Negative Last Edit by Silvia Fuller CMA on 02/21/25 15:34 UA Urobilinogen 0.2 mg/dL Last Edit by Silvia Fuller CMA on 02/21/25 15:34 UA Protein 15 mg/dL Last Edit by Silvia Fuller CMA on 02/21/25 15:34 UA pH 6.0 Last Edit by Silvia Fuller CMA on 02/21/25 15:34 UA Blood 10 Kenny/uL Last Edit by Silvia Fuller CMA on 02/21/25 15:34 UA Specific [place] 1.025 Last Edit by Silvia Fuller CMA on 02/21/25 15:34 UA Ketone Positive Last Edit by Silvia Fuller CMA on 02/21/25 15:34 UA Bilirubin 1 mg/dL Last Edit by Silvia Fuller CMA on 02/21/25 15:34 UA Glucose 0 mg/dL Last Edit by Silvia Fuller CMA on 02/21/25 15:34 Results Reviewed Results Reviewed: Laboratory Last Values Urine pH (Auto) 6.0 02/21/25 15:33 Specific [place] (Auto) 1.025 02/21/25 15:33 Urine Protein (Auto) 15 mg/dL 02/21/25 15:33 Glucose (UA)(Auto) 0 mg/dL 02/21/25 15:33 Urine Ketones (Auto) Positive 02/21/25 15:33 Urine Blood (Auto) 10 Kenny/uL 02/21/25 15:33 Urine Nitrite (Auto) Negative 02/21/25 15:33 Urine Bilirubin (Auto) 1 mg/dL 02/21/25 15:33 Urine Urobilinogen (Auto) 0.2 mg/dL 02/21/25 15:33 Leukocyte Esterase (Auto) 0 Lv/uL 02/21/25 15:33 Date of Service: 02/14/25 Procedure(s): US retroperitoneal comp Findings: Right kidney normal size and echotexture, 10.2 cm length. Left kidney normal size and echotexture, 11.2 cm length. No collecting system dilatation of either kidney. Normal color Doppler. Urinary bladder is unremarkable. Prevoid volume 150 mL. Postvoid volume 2.6 mL. Bilateral ureteral jets are visualized. IMPRESSION: 1. Normal kidneys. Assessment & Plan Assessment & Plan (1) Microscopic hematuria: Comment: today 10/20 is ending menses... Has had work up. Code(s): R31.29 - Other microscopic hematuria Category: Medical Plan In office urinalysis results reviewed with the patient today; as noted above. Will send for urine cytology. She currently denies any bothersome urinary issues or concerns. She reports be happy with current voiding parameters. Recent retroperitoneal ultrasound results reviewed with the patient today; as noted above. We discussed potential causes of microscopic hematuria as well as further workup to include cystoscopy Will continue with surveillance monitoring at this time We discussed the importance of limiting/quitting marijuana dependence for overall health and well-being. Follow-up in 1 year; or sooner with any issues, concerns, and or questions. Orders: Orders AMB Urinalysis Automated Today R80.9 - Proteinuria, unspecified Urine Cytology Today R31.29 - Other microscopic hematuria US renal BI 1 Year N20.0 - Calculus of kidney Patient Instructions: The patient had an opportunity to ask questions regarding the treatment plan. All questions were answered. Physical exam, labs, and imaging were discussed and reviewed in detail. As well as risks, benefits, and discussion of treatment choices. No major barriers to understanding were identified. The patient expressed understanding and agreement with the above treatment plan. The patient was made aware they should contact our office by phone for worsening of their current condition, the appearance of new symptoms, or with any questions or concerns. Compliance is encouraged with any medications and follow up testing that is ordered. It is a privilege to be allowed the opportunity to participate in? your urological care.? Again, if you have any questions or concerns If you have any questions or concerns please do not hesitate to contact me. The office is [phone]. This note is constructed using voice recognition software. While every effort has been made to ensure accuracy gore seamer errors may have been included. Yours sincerely, SWAPNIL Urbina Coding Level of Care Code Est Pt Level 3 (36689) Diagnoses Microscopic hematuria R31.29
== END 2025-02-21 16:18 | disposition home or self-care (01) ==
LOC: HO.HUSH 15:23
PROVIDERS: PCP Registered Nurse; Visit Provider Nurse Practitioner Family
DX: R80.9 Proteinuria, unspecified (principal); R31.29 Other microscopic hematuria
CPT/HCPCS: 99213

== ENCOUNTER → 2025-02-21 15:22 | Outpatient (BNVA) | payer MEDICAID, SELFPAY | PROVIDERS: PCP Registered Nurse; Visit Provider Nurse Practitioner Family | DX: R31.29 Other microscopic hematuria (principal); R80.9 Proteinuria, unspecified; N20.0 Calculus of kidney | CPT/HCPCS: 81003; 99212 ==

== ENCOUNTER 2025-04-19 11:06 | Outpatient (AMB) | payer MEDICAID, SELFPAY ==
--- NOTE | 2025-04-19 11:13 | A.OFFVIS_ITS ---
Vital Signs 3 04/19/25 11:23 Height 5 ft 7 in Weight 188 lb BMI 29.4 BP 123/60 Blood Pressure Location Lt brachial Position Sitting Pulse 65 Intake Visit Reasons: Hidradenitis suppurativa cysts Intake Note: Patient is seen in office for hidradenitis suppurativa. Pt c/o: for the past 2 months has lumps in the right groin and right axilla, currently has no discharge, painful, uncomfortable, would like to adress the issue before it flares Operations Research Scientist Required: No Accompanied by: Self / Same As Patient Allergies No Known Allergies Allergy (Verified 04/19/25 11:22) Medication List - Last Reconciled 04/19/25 by Darrick Carlton MD albuterol sulfate 90 mcg/actuation 2 puffs inhalation QID PRN chlorhexidine gluconate 4% (Hibiclens) 1 appl topically QOD; Lather for two minutes before rinsing off. 2 weeks cholecalciferol (vitamin D3) 25 mcg PO DAILY ferrous sulfate 325 mg PO QAM HPI Comments Details: 39-year-old female patient who returns for evaluation of new areas of hidradenitis. She has been using the Hibiclens with good results but now feels some areas that are filling and she is concerned about impending infection. These have developed over the past several months and seemed to be worsening with the heat. She denies any current discharge but does have discomfort when palpated. The lesions are located in the right axilla and bilateral groins/upper inner thighs. She denies fever, chills, nausea or vomiting. She is requesting excision of the 3 areas. [facility] Medical History GERD (gastroesophageal reflux disease) Gestational diabetes Habitual snoring Aerophagia Epidermal cyst Acid reflux Hydradenitis Asthma Surgical History History of surgery (04/26/24) History of esophagogastroduodenoscopy (EGD) Hx of section History of incision and drainage Social History Household Members Other:: Lives alone no children Are you a primary home care and home health aides teacher to a significant other at home: Yes Do you presently have visiting nurse or other home services: No Patient Tobacco Use Status: Never used Tobacco Second Hand Smoke Exposure: No 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 Chest/axillae images: 2 1. Site of palpable hidradenitis right axilla GI Inspection: Yes normal to inspection Skin Other: Bilateral upper inner thighs with palpable hidradenitis with underlying inflammation/phlegmon each measuring approximately 3 cm by 2 cm as noted below Full body images: 2 1. 2. Neuro General: patient oriented x3 Assessment & Plan Assessment & Plan (1) Hydradenitis: Code(s): L73.2 - Hidradenitis suppurativa Category: Medical Plan Patient with 3 new areas of hidradenitis including the right axilla and bilateral upper inner thigh/groins which will require excision as a short-stay surgery. I reviewed the procedure, risks, and alternatives and she consents to excision of the hidradenitis right axilla and bilateral groins/upper inner thigh. Coding Level of Care Code Est Pt Level 4 (50583) Diagnoses Hydradenitis L73.2
[2025-04-19 11:23] VITALS: BP 123/60; PULSE 65; BMI 29.4
--- OUTSIDE RECORDS SUMMARY | 2025-04-19 11:49 | XMS_ITS | Clinical Summary ---
Author Organization [employer] Address [address] [facility] [address] [place] [address] Care Team Providers Care Densitometrist Name Role Phone Mariela Roland Primary Care Provider [phone] Darrick Carlton MD Unavailable [phone] Carlos Patle Unavailable Allergies No known active allergies Medications [...] Plan (09/12/2024 7:58 PM EST): Followed by [facility] - Dr. 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 Carlton Microscopic hematuria 04/06/2024 Assessment & Plan (05/15/2024 1:03 PM EDT): Following with [facility] Urology - LEELEE Costa Plan: labs and retroperitoneal US follow up in February 2025 with Urology Hematochezia 01/28/2024 Assessment & Plan (01/28/2024 10:45 AM EDT): History of blood in stool Referral to GI placed 12/28/23 Reviewed ED/urgent care precautions Upcoming appt end of January 2024. Healthcare maintenance 12/28/2023 Overview (01/30/2024): Pap: 04/02/22 NIL/HPV neg, repeat due 2026 Optometry: followed by [facility] Eye Care Last PE: 01/28/24 Anemia [...] (01/28/2024 7:24 AM EDT): -Previously followed by [facility] Derm team and tx with Minoxidil (although discontinued use during ) Assessment & Plan (12/26/2023 6:23 PM EDT): -Minoxodil not advised during -Refill of betamethasone, although advised of risks and SE of custodial use. Pt to use sparingly PRN Assessment & Plan (01/26/2023 1:18 PM EDT): -Minoxodil not advised during -Refill of betamethasone, although advised of risks and SE of custodial use. Pt to use sparingly PRN Assessment & Plan (12/04/2022 9:44 AM EST): -Discontinue Betamethasone and initiate 5% Minoxidil Foam to use 1-2x daily. -Reassured patient, this will self-resolve. Assessment & Plan (10/05/2022 8:26 PM EST): -Follow up with Derm as scheduled Nov 2021 -Confirmed with [facility] Derm team they have the ability [...] (01/28/2024 7:26 AM EDT): -Following with [facility] GI -Continues with pantoprazole 40mg daily and sucralfate (through GI) Assessment & Plan (10/05/2022 8:22 PM EST): -Following with [facility] GI -Continues with pantoprazole 40mg daily and [...] request for neb machine: 12/28/23 (faxed to [facility]) - recieved Assessment & Plan (12/28/2023 12:10 [...] problem list. Recently had Level II at [facility], results reviewed. She has a repeat [...] Encounters Date Type Department Care Team Description 04/16/2025 Patient Outreach [facility] MEDICINE [address] [place] [id number] Mariela Roland FNP Pre-visit Planning (Pre visit planning unable to LVM ) 02/14/2025 Orders Only [facility] External Provider, [facility] 02/08/2025 Telephone [facility] [address], [place] [phone] Mariela Roland FNP Results 01/30/2025 Telephone [facility] [address] [place] [phone] Mariela Roland FNP Lab Orders 01/26/2025 1:40 PM EDT Office Visit [facility] [address] [place] [phone] Sadaf Mercado FNP Chalazion left upper eyelid (Primary Dx) 01/22/2025 Telephone [facility] [address] [place] [address] Mariela Roland FNP Lab Orders 01/18/2025 Telephone [facility] [address] [place] [address] Mariela Roland FNP January recall from Last 3 Months Immunizations Immunization [...] the past 12 months, has t he [employer] gas, oil or water company threatened to [...] 76 01/26/2025 1:14 PM EDT Temperature 36.7 C (98 F) 01/26/2025 1:14 PM EDT Respiratory Rate 16 [...] [facility] [address] [place] [address] Mariela Roland, QUIQUE [address] [place] [address] Health Maintenance Due Date Last Done Comments Disability Screening 1985 Alcohol/Substance Use Screening 1999 Family Planning (PISQ) [...] 01/28/2024 Depression Screening 01/29/2025 01/30/2024, 01/30/20 24 Pneumococcal Vaccine: Pediatrics (0 to 5 Years) and At-Risk Patients (6 to 49) Years (1 of 2 - PCV) 05/15/2025 Postponed from 2006 (Patient Refused) Influenza Vaccine (#1) 2025 , 06/30/2018, 07/18/2009 COVID-19 Vaccine ( season) 2025 Postponed from 06/11/2024 (Patient Refused) Tobacco Screening 01/26/2026 01/26/2025 Cervical Cancer Screening 04/02/2027 HPV/Cotest 04/02/2027 04/02/2022, 03/29/2018 Pap Smear 04/02/2027 04/02/2022 Zoster Vaccines (1 of 2) 2037 RSV Patients and Patients Aged 60 years or older (1 - 1-dose 75+ series) 2062 HPV Vaccines Completed 09/02/2010, 05/2010, 07/18/2009 Hepatitis B Vaccines Completed 08/28/2016, 02/06/2015, 02/11/2011 HIV Screening Completed 01/28/2024, 12/09, 09/02/2022 Hepatitis C Screening Completed 01/28/2024, 022 HIB Vaccines Aged Out No longer eligi ble based on patient's age to complete this topic Hepatitis A Vaccines Aged Out No long er eligible based on patient's age to complete this topic IPV Vaccines Aged Out No longer eligi ble based on patient's age to complete this topic Meningococcal B Vaccine Aged Out No l onger eligible based on patient's age to complete [...] Routine 01/30/2025 3:11 PM EDT Screening due HEPATITIS C VIRAL RNA, QUANTITATIVE, REAL-TIME PCR [...] PM EDT Narrative 02/14/2025 4:44 PM EDT [place] [address] Ultrasound Report Signed Patient: Mariaelena Calles MR#: [id number] : 1985 Acct:[id number] Age/Sex: 39 / F ADM Date: 02/14/25 Loc: HO.US Attending Dr: Alexandra KRAFT Ordering Physician: Alexandra Costa Date of Service: 02/14/25 Procedure(s): US retroperitoneal comp Accession Number(s): [id number] cc: Alexandra Costa; Mariela Roland CLINICAL HISTORY: R31.29 - Other microscopic hematuria [...] signed by Marcello Pisano MD in OV> 02/14/251642 DD/ 41 TD/TT: 02/14/251641 Accounts Receivable Administrator: Procedure Note Donotuseinterpreter, Image - 02/14/2025 [place] [address] Ultrasound Report Signed Patient: Dav Calles#: [id number] : 1985Acct:[id number] Age/Sex: 39 / FADM Date: 02/14/25 Loc: HO.US Attending Dr: Alexandra KRAFT Ordering Physician: Alexandra Costa Date of Service: 02/14/25 Procedure(s): US retroperitoneal comp Accession Number(s): [id number] cc: Alexandra Costa; Mariela Roland CLINICAL HISTORY: R31.29 - Other microscopic hematuria [...] 02/14/25 1643 DD/ 1642 TD/TT: 02/14/25 1642 Accounts Receivable Administrator: [facility] External Provider IMG US PROCEDURES Final Result * Referral to Ophthalmology (02/07/2025) Result [facility] STORYBOARD ARTIST OUTPATIENT REFERRAL ORDERABLE S Final Result * T-SPOT??.TB (01/30/2025 3:11 PM EDT) T Spot TB Negative Negative [facility] Comment:A negative test resu lt does [...] as aquantitative test. TS PANEL A 0 [facility] TS PANEL B 0 [facility] Negative Control Passed [facility] Positive Control Passed [facility] Comment:For additional infor mation, please refer tohttp://education.[employer]/faq/RSE329(This link is being provided for informational/educational purposes only.)REPORT COMMENT:REC'D IN Q-CHYTHIS TEST WAS PERFORMED AT:[employer] [id number] [place] [address]HIAQRLLDAREN BAJWA MD,PHD 01/30/2025 3:11 PM EDT 01/30/2025 6:13 PM EDT Mariela Roland [facility] LAB BLOOD ORDERABLES Final Res ult Performing Organization Address [facility] Co de Phone Number [facility] [address] [place] [phone] * Hepatitis C Viral RNA, Quantitative, Real-Time PCR (01/28/2024 11:25 AM EDT) Pathologist [facility] Hepatitis C Viral Load <15 NOT DETECTED NOT DETECTED IU/mL [facility] HCV Log PCR <1.18 NOT DETECTED NOT DETECTED Log IU/mL [facility] Comment:This test was perfor med using Real-Time Polymerase ChainReaction.Reportable Range: 15 IU/mL to 100,000,000 IU/mL(1.18 Log IU/mL to 8.00 Log IU/mL).The analytical performance characteristics of thisassay have been determined by [employer].The modifications have not been cleared or approved bythe FDA. This assay has been validated pursuant to theCLIA regulations and is used for clinical purposes.For more information on this test, go to:http://education.[employer]/faq/VPW12y8(This link is being provided for informational/educational purposes only.)THIS TEST WAS PERFORMED AT:[address] [place] [id number] TONG MD Blood 01/28/2024 11:2 5 AM EDT 01/28/2024 2:38 PM EDT Mariela Roland [facility] LAB BLOOD ORDERABLES Final Res ult Performing Organization Address [facility]/ZIP Co de Phone Number [facility] [address] [place] [phone] HIV-1/2 Antigen and Antibodies, Fourth Generation, with Reflexes (01/28/2024 11:25 AM EDT) Pathologist [facility] HIV AB/AG Nonreactive Nonreactive [facility] Comment:HIV-1 p24 Ag and/or HIV-1/HIV-2 Ab not detected.A test result that is nonreactive does not exclude thepossibility of exposure to or infection with HIV-1 and/orHIV-2. Nonreactive results in this assay for individualswith prior exposure to HIV-1 and/or HIV-2 may be due toantigen and antibody levels that are below the limit ofdetection of this assay.The [employer] HIV Ag/Ab Combo assay result andsupplemental assay results should be interpreted inconjunction with the patient's clinical presentation,history and other laboratory results. If the results areinconsistent with clinical evidence, additional testing issuggested to confirm the result. Blood Venous blood specimen / Unknown 01/28/2024 11:25 AM EDT 01/28/2024 2:38 PM EDT us Mariela Roland [facility] LAB BLOOD ORDERABLES Final Res ult [facility] [address] [place] [phone] * THINPREP TIS PAP AND HPV mRNA E6/E7, CT/NG, TRICH (04/02/2022 4:27 PM EDT) Chlamydia trachomatis RNA, TMA, Urogenital NOT DETECTED NOT DETECTED [facility] Clinical Information: None given [facility] COMMENT SEE COMMENT [facility] Comment: The analytical performance characteristics of this assay, when used to test SurePath(TM) specimens have been determined by [facility]. The modifications have not been cleared or approved by the FDA. This assay has been validated pursuant to the CLIA regulations and is used for clinical purposes. For additional information, please refer to https://education.[employer]/faq/CVK252 (This link is being provided for information/ educational purposes only.) COMMENT SEE COMMENT [facility] Comment: EXPLANATORY NOTE: The Pap is a screening test for cervical cancer. It is not a diagnostic test and is subject to false negative and false positive results. It is most reliable when a satisfactory sample, regularly obtained, is submitted with relevant clinical findings and history, and when the Pap result is evaluated along with historic and current clinical information. COMMENT: This Pap test has been evaluated with computer assisted technology. [facility] Plumbing Designer: SEE COMMENT [facility] Comment: SL, CT(ASCP) CT screening location: [address] [address] HPV nRNA E6/E7 Not Detected Not Detected [facility] Comment: Methodology: S Iron Worker-Mediated Amplification This assay detects E6/E7 viral messenger RNA (mRNA) from 14 high-risk HPV types (16,18,31,33,35,39,45,51,52,56,58,59,66,68). Cervical sources are required for HPV testing. If a vaginal source from a patient who has had a total hysterectomy with removal of cervix was submitted, please contact the testing laboratory for alternative testing options. For additional information, please refer to http://[employer]/faq/IUL677t8 (This link if provided for information/ educational purposes only.) Interpretation/Re sult: Negative for intraepithelial lesion or malignancy. [facility] LMP: NONE GIVEN [facility] Neisseria gonorrhoeae RNA, TMA, Urogenital NOT DETECTED NOT DETECTED [facility] Prev. BX: NONE GIVEN [facility] Prev. PAP: NONE [facility]IV[facility] SOURCE: None given [facility] Statement Of Adequacy: SEE COMMENT [facility] Comment: Satisfactory for evaluation. Endocervical/transformation zone component present. Age and/or menstrual status not provided Trichomonas vaginalis, QL, TMA, PAP Vial NOT DETECTED NOT DETECTED [facility] Comment: The analytical performance characteristics of this assay have been determined by [facility]. The modifications have not been cleared or approved by the FDA. This assay has been validated pursuant to the CLIA regulations and is used for clinical purposes. For additional information, please refer to http://education.[employer]/ faq/Trichomonastma (This link is being provided for information/ educational purposes only.) 04/02/2022 4:27 PM EDT Qiana Licona NP LAB PATHOLOGY ORDERABLES Final Result [facility] [address] from Last 3 Months or Most Recently Relevant to Health Maintenance Insurance HS PARTIAL Care Teams Densitometrist Relationship Specialty Start Date End Date Mariela Roland FNP [address] [place] [address] PCP - General Family Medicine 06/10/22 Darrick Carlton MD [address] [place] [address] Drive 3rd [place] [address] General Surgery 09/12/24 Carlos Patel [address] [place] [address] Gynecology 09/12/24
== END 2025-04-19 11:38 | disposition home or self-care (01) ==
LOC: HO.HGS 11:06
PROVIDERS: PCP Registered Nurse; Visit Provider Surgery
DX: L73.2 Hidradenitis suppurativa (principal)
CPT/HCPCS: 99214

== ENCOUNTER → 2025-04-19 11:06 | Outpatient (BNVA) | payer MEDICAID, SELFPAY | PROVIDERS: PCP Registered Nurse; Visit Provider Surgery | DX: L73.2 Hidradenitis suppurativa (principal) | CPT/HCPCS: 99212 ==

== ENCOUNTER 2025-05-07 13:03 | Outpatient (REF) | payer MEDICAID, SELFPAY ==
--- OUTSIDE RECORDS SUMMARY | 2025-05-07 13:43 | XMS_ITS | Encounter Summary ---
Author Organization [facility] Address [address] [facility] [address] [place] [phone] Phone Care Team Providers Care Mannequin Mounter Name Role Phone Aaron Brink NP, Ana Primary Care Provider Mariela Tsang Primary Care Provider [phone] Encounter Details Date Type Department Care Team (Late st Contact Info) Description 08/20/2023 Procedure Pass [facility] L[facility]D Procedures [address] [place] [address] Social History Tobacco Use Types Packs/Day Years [...] 08/20/2023 7:31 AM Loretta Case RN * [place] Suicide Severity Rating Scale (Screener/Recent Self-Report) Question [...] on filedocumented in this encounter Care Teams Mannequin Mounter Relationship Specialty Start Date End Date Ana Walker NP PCP - General 07/27/17 08/26/23 Mariela Roland FNP [address] [place] [address] PCP - General Nurse Practitioner 08/27/23 documented as of this encounter Additional Source Comments The information contained in this document represents components of the legal health record. It is not the complete legal health record.[facility]
--- OUTSIDE RECORDS SUMMARY | 2025-05-07 13:43 | XMS_ITS | Encounter Summary ---
Author Organization [employer] Address [address] [facility] [place] [address] Care Team Providers Care Air Quality Technician Name Role Phone Mariela Roland Primary Care Provider [phone] Darrick Carlton MD Unavailable [phone] Carlos Patel Unavailable Reason for Visit * Reason Comments Med Refill Encounter Details Date Type Department Care Team (Late st Contact Info) Description 05/07/2025 Refill [facility] [address] [place] [address] Mariela Roland FNP [address] [place] [address] Vitamin D insufficiency Social History Tobacco Use Types Packs/Day Years [...] as of this encounter Visit Diagnoses Diagnosis Vitamin D insufficiency documented in this encounter Additional Health Concerns Assessment Noted Time PHQ-9 Depression Total Score: 1 04/23/20 25 11:37 AM EDT documented as of this encounter Care Teams Air Quality Technician Relationship Specialty Start Date End Date Mariela Roland FNP [address] [place] [address] PCP - General Family Medicine 06/10/22 Darrick Carlton MD [address] [place] [address] [address] [place] [address] General Surgery 09/12/24 Carlos Patel [address] [place] [address] Gynecology 09/12/24 documented as of this encounter
[2025-05-07 14:46] LABS: MANUAL DIFF FLAG NO
[2025-05-07 14:56] LABS: Hematocrit 39.9 % (37.0-47.0); Hemoglobin 12.9 g/dl (12.0-16.0); Imm Gran Abs Auto 0.02 X10*3/uL (0.00-0.03); Imm Gran Pct Auto 0.4 % (0.0-0.4); Lymphocytes Absolute Auto 1.6 X10*3/uL (1.2-4.9); Mean Corpuscular HGB Conc 32.3 g/dl (31.0-35.0); Mean Corpuscular Hemoglobin 29.4 pg (27.0-33.0); Mean Corpuscular Volume 90.9 fL (80.0-98.0); NRBC Abs Auto 0.000 X10*3/uL (0.0-0.012); NRBC Pct Auto 0.0 /100WBC (0.0-0.2); Platelet Count 230 X10*3/uL (160-400); Red Blood Count 4.39 X10*6/uL (4.20-5.50); White Blood Count 5.0 X10*3/uL (4.8-10.8)
[2025-05-07 15:01] LABS: Hemoglobin A1C 109.8031 umol/L; Total Hemoglobin (HGBA1C) 3331.8122 umol/L
[2025-05-07 15:25] LABS: Alanine Aminotransferase 21 U/L (0-31); Albumin Level 4.2 g/dL (3.5-5.0); Alkaline Phosphatase 63 U/L (39-117); Anion Gap 11 (12-20); Aspartate Amino Transferase 18 U/L (5-31); Blood Urea Nitrogen 5 mg/dL (9-16); Calcium 8.5 mg/dL (8.4-10.2); Carbon Dioxide 26 mmol/L (22-29); Chloride 108 mmol/L (96-108); Cholesterol 183 mg/dL (<200); Estimated Glomerular Filt Rate > 60; HDL Cholesterol 47 mg/dL (>40); Iron 72 mcg/dL (30-160); Percent Iron Saturation 25 % (15-50); Potassium 4.5 mmol/L (3.3-5.1); Sodium 140 mmol/L (135-145); Total Iron Binding Capacity 292 mcg/dL (228-428); Total Protein 6.5 g/dL (6.5-8.0); Triglycerides 64 mg/dL (<150); Unsaturated Iron Binding 220 ug/dL
[2025-05-07 15:54] LABS: Ferritin 21 ng/mL (10-122)
[2025-05-07 17:02] LABS: CT PCR Urine NOT DETECTED (Not Detect.); NG PCR Urine NOT DETECTED (Not Detect.)
[2025-05-08 03:45] LABS: HIV Num 1 0.06 S/CO (0.00-0.99)
[2025-05-10 15:28] LABS: HCV Log PCR <1.18 NOT DETECTED Log IU/mL (NOT DETECTED); HepC Viral Load <15 NOT DETECTED IU/mL (NOT DETECTED)
== END 2025-05-07 13:04 | disposition home or self-care (01) ==
LOC: HO.CHCLDS 13:03
PROVIDERS: Visit Provider Registered Nurse
DX: Z11.4 Encounter for screening for human immunodeficiency virus [HIV] (principal); Z11.59 Encounter for screening for other viral diseases; Z00.00 Encounter for general adult medical examination without abnormal findings
CPT/HCPCS: 36415; 80053; 80061; 82306; 82728; 83036; 83540; 84443; 85025; 86592; 87389; 87491; 87522; 87591

== ENCOUNTER 2025-05-28 05:58 | Day surgery (SDC) | payer MEDICAID, SELFPAY ==
--- OUTSIDE RECORDS SUMMARY | 2025-04-27 09:15 | XMS_ITS | Encounter Summary ---
Author Organization [facility] Address [address] [facility] [address] [place] [phone] Phone Care Team Providers Care Farm Equipment Engineer Name Role Phone Aaron Brink NP, Ana Primary Care Provider Mariela Tsang Primary Care Provider [phone] Encounter Details Date Type Department Care Team (Late st Contact Info) Description 08/20/2023 Procedure Pass [facility]D Procedures [address] [place] [address] Social History Tobacco Use Types Packs/Day Years Used Date Smoking Tobacco: Never Smokeless Tobacco: Never Alcohol Use Standard Drinks/Week Comments Not Currently 0 (1 standard drink = 0.6 oz pur e alcohol) Education Answer Date Recorded Are you interested in more education? Not on trini e 02/05/2023 Are you concerned about learning? Not on file 02/05/2023 No 02/05/2023 No 02/05/2023 Digital Access Answer Date Recorded No 03/08/2023 No 03/08/2023 Reliable internet access at home? Not on file 03/08/2023 Device with a working camera? Not on file Intimate Partner Violence Answer Date R ecorded Are you denied basic needs s uch as food, clothing, or medical care? No 08/20/2023 In the past 12 months have y ou been in a relationship with a person who hurts, threatens, or tries to control you? No 08/20/2023 Are you denied basic needs s uch as food, clothing, or medical care? No 08/20/2023 In the past 12 months have y ou been in a relationship with a person who hurts, threatens, or tries to control you? No 08/20/2023 Comments No Sex and Gender Information Value Date Recorded Sex Assigned at Female 08/20/2023 7:30 AM EST Legal Sex Female 9:10 PM EDT Gender Identity Female 08/20/2023 7:30 AM EST Sexual Orientation Straight 08/20/2023 7: 30 AM EST documented as of this encounter Functional Status * Calculated C-SSRS Risk Score (Lifetime/Recent) Answer Date of Assessment Author No Risk Indicated 08/20/2023 7:31 AM Loretta Case RN * [place] Suicide Severity Rating Scale (Screener/Recent Self-Report) Question Answer Date of Assessment Author 1. Wish to be (Past 1 Month) No 023 7:31 AM Loretta Case RN 2. Non-Specific Active Suici valentine Thoughts (Past 1 Month) No 08/20/2023 7:31 AM EST Farooq Beck RN 6. Suicidal Behavior (Lifetime) No 3 7:31 AM Loretta Case RN documented as of this encounter Plan of Treatment Not on file documented as of this encounter Visit Diagnoses Not on filedocumented in this encounter Care Teams Farm Equipment Engineer Relationship Specialty Start Date End Date Ana Walker NP PCP - General 07/27/17 08/26/23 Mariela Roland FNP [address] [place] [phone] PCP - General Nurse Practitioner 08/27/23 documented as of this encounter Additional Source Comments The information contained in this document represents components of the legal health record. It is not the complete legal health record.[facility]
--- OUTSIDE RECORDS SUMMARY | 2025-04-27 09:15 | XMS_ITS | Clinical Summary ---
Author Organization [employer] Address [address] [facility] [address] [place] [address] Care Team Providers Care Hydraulic Governor Assembler Name Role Phone Mariela Roland Primary Care Provider [phone] Darrick Carlton MD Unavailable [phone] Carlos Patel Unavailable Allergies No known active allergies Medications sucralfate (Carafate) 1 g tablet Take 1 tablet by mouth every 12 (twelve) hours. Active albuterol (2.5 MG/3ML) 0.083% nebulizer solution Take 3 mL (2.5 mg) by nebulization every 4 (four) hours if needed for wheezing or shortness of breath. 75 mL 11 024 Active loratadine (Claritin) 10 MG tablet Take 1 tablet (10 mg) by mouth Once per day. 90 tablet 3 024 Active psyllium (Metamucil) 0.36 g capsule Take 6 capsules (2.16 g) by mouth Once per day. 180 capsule 11 024 2024 Active Cholecalciferol (Vitamin D3 Extra Strength) 25 MCG (1000 UT) chewable tabletIndication s:Vitamin D insufficiency CHEW 1 TABLET BY MOUTH EVERY DAY 90 tablet 1 024 Active pantoprazole (ProtoNix) 40 MG EC tabletIndication s:Gastroesophage al reflux disease with hiatal hernia TAKE 1 TABLET BY MOUTH EVERY DAY 90 tablet 1 024 Active hydrocortisone (Anusol-HC) 2.5 % rectal creamIndications :Other hemorrhoids Use thin layer to affected area (hemorrhoids) twice daily as needed 28 g 2 024 Active senna-docusate (Senexon-S) 8.6-50 MG tabletIndication s:Other hemorrhoids,Cons tipation, unspecified constipation type TAKE 1-2 TABLETS BY MOUTH IF NEEDED EACH DAY FOR CONSTIPATION. 180 tablet 1 025 Active ammonium lactate (Amlactin) 12 % creamIndications :Xerosis of skin Apply thin layer by topical route to bottom of feet 1-2 times per day as needed for dry skin 385 g 2 025 Active albuterol (Ventolin HFA) 108 (90 Base) MCG/ACT inhalerIndicatio ns:Mild intermittent asthma without complication Inhale 2 puffs every 4 (four) hours if needed for wheezing. 18 g 025 Active levonorgestrel-e thinyl estradiol (Aviane, Alesse, Lessina) 0.1-20 MG-MCG tabletIndication s:Encounter for initial prescription of contraceptive pills Take 1 tablet by mouth Once per day. 90 tablet 2 025 2025 Active Ventolin HFA 108 (90 Base) MCG/ACT inhaler INHALE 2 PUFFS BY MOUTH EVERY 4 HOURS IF NEEDED FOR WHEEZING. 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 Has responded well to Triamcinolone 0.1% oint Other hemorrhoids 05/01/2024 Assessment & Plan (06/01/2024 3:38 PM EDT): History consistent with hemorrhoids, none visible externally on exam Reviewed constipation prevention, s/s to report Assessment & Plan (05/15/2024 1:01 PM EDT): -Start Anusol PRN -Follow up precautions Anemia 05/01/2024 Constipation 05/01/2024 Overview (09/12/2024): Cont psyllium Cont [...] Encourage high fiber diet, good hydration, movement Complex ovarian cyst 04/06/2024 Epidermal cyst 04/06/2024 Hair loss 04/06/2024 Hidradenitis suppurativa 04/06/2024 Assessment & Plan (04/24/2025 3:45 PM EDT): -S/p multiple excisions of HS lesions performed by Dr. Carlton at [facility] Surgery Assessment & Plan (09/12/2024 7:55 PM EST): -S/p excision of HS lesion right groin x 2: April 2024 & Jul 2024 at [facility] Surgery - Dr. Carlton Microscopic hematuria 04/06/2024 Assessment & Plan (04/24/2025 3:38 PM EDT): Following with [facility] Urology - LEELEE Costa 02/14/25: US retroperitoneal ordered by KIRK Costa. Impression - normal kidneys. Assessment & Plan (05/15/2024 1:03 PM EDT): Following with [facility] Urology - LEELEE Costa Plan: labs and retroperitoneal US follow up in February 2025 with Urology Hematochezia 01/28/2024 Assessment & Plan (01/28/2024 10:45 AM EDT): History of blood in stool Referral to GI placed 12/28/23 Reviewed ED/urgent care precautions Upcoming appt end of January 2024. Healthcare maintenance 12/28/2023 Overview (04/24/2025): Pap: 04/02/22 NIL/HPV neg, repeat due 2026 Optometry: followed by [facility] Last PE: 04/23/25 History of gestational diabetes 06/17/2023 Overview (04/24/2025): -Following with CDE during -December 2023: BG and A1c WNL Lab Results Component Value Date HGBA1C 5.3 12/27/2023 Assessment & Plan (04/24/2025 3:42 PM EDT): Recheck of A1c and FBG Assessment & Plan (12/28/2023 12:14 PM EDT): Recheck of A1c and FBG Alopecia areata 09/24/2022 Assessment & Plan (01/28/2024 7:24 AM EDT): -Previously followed by [facility] Derm team and tx with Minoxidil (although discontinued use during ) Assessment & Plan (12/26/2023 6:23 PM EDT): -Minoxodil not advised during -Refill of betamethasone, although advised of risks and SE of halfway use. Pt to use sparingly PRN Assessment & Plan (01/26/2023 1:18 PM EDT): -Minoxodil not advised during -Refill of betamethasone, although advised of risks and SE of halfway use. Pt to use sparingly PRN Assessment & Plan (12/04/2022 9:44 AM EST): -Discontinue Betamethasone and initiate 5% Minoxidil Foam to use 1-2x daily. -Reassured patient, this will self-resolve. Assessment & Plan (10/05/2022 8:26 PM EST): -Follow up with Derm as scheduled Nov 2021 -Confirmed with [facility] Derm team they have the ability to do intralesional injections day of if appropriate -Check labs including JASVIR, RF, TSH, liver panel, iron studies -Patient education handout from [employer] provided Hypercholesterolemia 09/23/2022 Assessment & Plan (04/24/2025 3:41 PM EDT): Lab Results Component Value Date CHOL 207 (H) 01/28/2024 TRIG 96 01/28/2024 TRIG 91 09/24/2022 HDL 42 01/28/2024 LDLCHOLCAL 146 (H) 01/28/2024 -continue lifestyle modification Assessment & Plan (01/28/2024 7:22 AM EDT): -LDL 119, TG 76 in April 2021 -Cont lifestyle modifications Assessment & Plan (10/05/2022 8:24 PM EST): -LDL 119, TG 76 in April 2021 -Repeat lipid panel Gastroesophageal reflux disease with hiatal cynthia ia 06/03/2020 Assessment & Plan (04/24/2025 3:43 PM EDT): -Following with [facility] GI -Continues with pantoprazole 40mg daily and sucralfate (through GI) Assessment & Plan (01/28/2024 7:26 AM EDT): -Following with [facility] GI -Continues with pantoprazole 40mg daily and sucralfate (through GI) Assessment & Plan (10/05/2022 8:22 PM EST): -Following with [facility] GI -Continues with pantoprazole 40mg daily and sucralfate (through GI) Vitamin D deficiency 02/06/2019 Overview (04/24/2025): Lab Results Component Value Date [id number] 32.5 05/01/2024 Assessment & Plan (04/24/2025 3:42 PM EDT): -re-check Vitamin D levels Assessment & Plan (01/28/2024 7:25 AM EDT): -Last Vit D level 2021: 21 ng/mL -re-check Vitamin D levels Assessment & Plan (10/05/2022 8:23 PM EST): -re-check Vitamin D levels Mild intermittent asthma 08/08/2015 Assessment & Plan (04/24/2025 3:44 PM EDT): Continue albuterol PRN Reviewed Rule of 2's to assess control, currently well controlled DME request for neb machine: 12/28/23 (faxed to [employer]) - recieved Assessment & Plan (01/30/2024 8:41 AM EDT): Continue albuterol PRN Reviewed Rule of 2's to assess control, currently well controlled DME request for neb machine: 12/28/23 (faxed to [employer]) - recieved Assessment & Plan (12/28/2023 12:10 PM EDT): Continue albuterol PRN Reviewed Rule of 2's to assess control, currently well controlled DME request for neb machine: 12/28/23 Resolved Problems Problem Noted Date Diagnosed Date Resolved Date Dyspepsia 05/01/2024 04/24/2025 Assessment & Plan (06/01/2024 3:39 PM EDT): Reviewed low acid foods Concussion with no loss of consciousness 04/20/2024 [...] -mildly elevated HR, reassess at next visit Aerophagia 04/06/2024 04/24/2025 Folliculitis 04/06/2024 09/12/2024 Poor historian 04/06/2024 09/11/2024 [...] Disease in 06/2023 and treatment was successful. Anemia during in third trimester 07/01/2023 04/24/2025 Overview (04/06/2024): 28 weeks - Hgb 9.5 On iron Repeat hgb at 37wks 9.3 Last Assessment & Plan: Pt confirms she is taking iron. Will ordered CBC to recheck Hgb. Pt informed to present to lab. Genital herpes affecting pre gnancy in second [...] problem list. Recently had Level II at [facility], results reviewed. She has a repeat [...] Encounters Date Type Department Care Team Description 04/26/2025 Refill [facility] [address] [place] [address] Mariela Roland FNP Xerosis of skin 04/23/2025 10:30 AM EDT Office Visit [facility] [address] [place] [address] Mariela Roland FNP Encounter for routine history and physical examination of adult (Primary Dx); Healthcare maintenance; Xerosis of skin; Encounter for initial prescription of contraceptive pills; Microscopic hematuria; Hypercholesterolemia; Dietary counseling; Exercise counseling; Vitamin D deficiency; History of gestational diabetes; Gastroesophageal reflux disease with hiatal hernia; Constipation, unspecified constipation type; Mild intermittent asthma without complication; Hidradenitis suppurativa 04/23/2025 Travel 04/16/2025 Patient Outreach [facility] [address] [place] [address] Mariela Roland FNP Pre-visit Planning (Pre visit planning unable to LVM ) 02/14/2025 Orders Only [facility] External Provider, [facility] 02/08/2025 Telephone [facility] [address] [place] [address] Mariela Roland FNP Results 01/30/2025 Telephone [facility] [address] [place] [address] Mariela Roland FNP Lab Orders 01/26/2025 1:40 PM EDT Office Visit [facility] [address] [place] [address] Sadaf Mercado FNP Chalazion left upper eyelid (Primary Dx) from Last 3 Months Immunizations Immunization Administration [...] Answer Date Recorded Patient Health Questionnaire-9 Score 1 04/23/2025 Patient Health Questionnaire-9 Score 1 04/23/2025 Last PHQ-9: Questionnaire Data Not on file 0 04/23/2025 Housing Stability Answer Date Recorded What is your housing situation today? I have sancho lopez 04/23/[address] you li ve. Do you have problems with any of the following? None of the above 04/23/2025 Food Insecurity Answer Date Recorded Within the past 12 months, y ou worried that your food would run out before you got money to buy more: Never True 04/23/2025 Within the past 12 months,th e food you bought just didn't last and you didn't have enough money to get more: Never True Transportation Answer Date Recorded In the past 12 months, has l ack of transportation kept you from medical appts, meetings, work or from getting things needed for daily living? No 04/23/2025 Utilities Answer Date Recorded In the past 12 months, has t he electric, gas, oil or water company threatened to shut off services in your home? No 04/23/2025 Depression Answer Date Recorded Patient Health Questionnaire-2 Score 0 04/23/2025 Internet Access Answer Date Recorded Internet Access Q1 Yes 04/23/2025 Internet Access Q2 Not on file 04/23/2025 Comments Unknown Sex and Gender Information Value Date Recorded Sex Assigned at Female 08/10/2022 10:19 AM EDT Legal Sex Female 10:19 AM EDT Gender Identity Female 08/10/2022 10:19 AM EDT Sexual Orientation Straight 08/10/2022 10 :19 AM EDT Last Filed Vital Signs Vital Sign Reading Time Taken Comments Blood Pressure 118/72 04/23/2025 10:31 AM EDT Pulse 78 04/23/2025 10:31 AM EDT Temperature 36.8 C (98.3 F) 04/23/2025 10:31 AM EDT Respiratory Rate 16 04/23/2025 10:31 AM EDT Oxygen Saturation 98% 01/26/2025 1:14 PM EDT Inhaled Oxygen Concentration - - Weight 84.8 kg (187 lb) 04/23/2025 10:31 AM EDT Height 168.9 cm (5' 6.5 ) 04/23/2025 10:31 AM ED T Body Mass Index 29.73 04/23/2025 10:31 AM EDT Plan of Treatment Health Maintenance Due Date Last Done Comments Family Planning (PISQ) 2002 Dental Prophylaxis 12/30/2019 06/30/2019, 0 12/27/2018, 05/26/2018, Additional history exists Dental X-Ray: Full Mouth 10/01/2020 09/30/2017, 07/12 DTaP/Tdap/Td Vaccines (2 - Td or Tdap) 02/11/2021 02/11/2011 Dental Oral Exam 04/16/2021 10/16/2020, , 01/11/2019, Additional history exists Dental X-Ray: Bitewings 10/17/2021 10/16/19, 05/07/2020, 06/30/2019, Additional history exists Pneumococcal Vaccine: Pediatrics (0 to 5 Years) and At-Risk Patients (6 to 49) Years (1 of 2 - PCV) 05/15/2025 Postponed from 2006 (Patient Refused) Influenza Vaccine (#1) 2025 , 06/30/2018, 07/18/2009 COVID-19 Vaccine ( season) 2025 Postponed from 06/11/2024 (Patient Refused) Alcohol/Substance Use Screening 04/23/2026 04/23/2025 Depression Screening 04/23/2026 04/23/2025, 04/23/20 Disability Screening 04/23/2026 04/23/2025 SDOH Screening 04/23/2026 04/23/2025 Tobacco Screening 04/23/2026 04/23/2025 Cervical Cancer Screening 04/02/2027 HPV/Cotest 04/02/2027 04/02/2022, [...] Name Priority Date/Time Associated Diagnosis Comments POCT , URINE Routine 04/23/2025 11:43 AM EDT Encounter for initial prescription of contraceptive pills US RETROPERITONEAL COMPLETE Routine 02/14/2025 4:42 PM [...] Recently Relevant to Health Maintenance Results * POCT Urine (04/23/2025 11:43 AM EDT) Preg Test, Ur Negative Negative, Indeterminate, None Detected, Invalid, Specimen unsatisfactory for evaluation, Weakly Positive, 2+ Comment:internal controls pa ssed QC Media Lot # [id number] Lot# Expiration Date [id number] Urine 04/23/2025 11:4 3 AM EDT us Mariela LEI POINT OF CARE TEST ENTER/EDIT ORDERABLES Final Result * US Retroperitoneal Complete (02/14/2025 4:42 PM EDT) Anatomical Region Laterality Modality Ultrasound 02/14/2025 4:42 PM EDT Narrative 02/14/2025 4:44 PM EDT [place] [address] Ultrasound Report Signed Patient: Mariaelena Calles MR#: [id number] : 1985 Acct:[id number] Age/Sex: 39 / F ADM Date: 02/14/25 Loc: HO.US Attending Dr: Alexandra KRAFT Ordering Physician: Alexandra Costa Date of Service: 02/14/25 Procedure(s): US retroperitoneal comp Accession Number(s): [id number] cc: Alexandra Costa; Mariela Roland CLINICAL HISTORY: [...] in OV> 02/14/251642 DD/ 41 TD/TT: 02/14/251641 Welfare Project Manager: Procedure Note Donotuseinterpreter, Image - 02/14/2025 [place] [address] Ultrasound Report Signed Patient: Dav Calles#: [id number] : 1985Acct:[id number] Age/Sex: 39 / FADM Date: 02/14/25 Loc: .US Attending Dr: Alexandra GAMEZP-RAND Ordering Physician: Alexandra Costa Date of Service: 02/14/25 Procedure(s): US retroperitoneal comp Accession Number(s): [id number] cc: Alexandra Costa-BC; Mariela Roland CLINICAL HISTORY: R31.29 - Other [...] in OV> 02/14/251642 DD/ 41 TD/TT: 02/14/251641 Welfare Project Manager: [facility] External Provider IMG US PROCEDURES Final Result * Referral to Ophthalmology (02/07/2025) [facility] OUTPATIENT REFERRAL ORDERABLE S Final Result * T-SPOT??.TB (01/30/2025 3:11 PM EDT) T Spot TB Negative Negative [facility] Comment:A negative test resu lt [...] as aquantitative test. TS PANEL A 0 [facility] TS PANEL B 0 [facility] Negative Control Passed [facility] Positive Control Passed [facility] Comment:For additional infor parisa, please refer tohttp://education.ServiceRelated/faq/XTC638(This link is being provided for informational/educational purposes only.)REPORT COMMENT:REC'D IN Q-CHYTHIS TEST WAS PERFORMED AT:[id number] [place] [address]LSPXSZODAREN BAJWA MD,PHD 01/30/2025 3:11 PM EDT 01/30/2025 6:13 PM EDT Mariela Roland [facility] LAB BLOOD ORDERABLES Final Res ult [facility] [address] [place] [phone] * Hepatitis C Viral RNA, Quantitative, Real-Time PCR (01/28/2024 11:25 AM EDT) Pathologist [facility] Hepatitis C Viral Load <15 NOT DETECTED NOT DETECTED IU/mL [facility] HCV Log PCR <1.18 NOT DETECTED NOT DETECTED Log IU/mL [facility] Comment:This test was perfor med using Real-Time Polymerase ChainReaction.Reportable Range: 15 IU/mL to 100,000,000 IU/mL(1.18 Log IU/mL to 8.00 Log IU/mL).The analytical performance characteristics of thisassay have been determined by [employer].The modifications have not been cleared or approved bythe FDA. This assay has been validated pursuant to theCLIA regulations and is used for clinical purposes.For more information on this test, go to:http://education.ServiceRelated/faq/JBQ50q5(This link is being provided for informational/educational purposes only.)THIS TEST WAS PERFORMED AT:[employer] [place] [id number] TONG MD Blood 01/28/2024 11:2 5 AM EDT 01/28/2024 2:38 PM EDT Mariela Roland [facility] BLOOD ORDERABLES Final Res ult [facility] [address] [place] [phone] * HIV-1/2 Antigen and Antibodies, Fourth Generation, with Reflexes (01/28/2024 11:25 AM EDT) Pathologist [facility] HIV AB/AG Nonreactive Nonreactive [facility] Comment:HIV-1 p24 Ag and/or HIV-1/HIV-2 Ab not detected.A test result that is nonreactive does not exclude thepossibility of exposure to or infection with HIV-1 and/orHIV-2. Nonreactive results in this assay for individualswith prior exposure to HIV-1 and/or HIV-2 may be due toantigen and antibody levels that are below the limit ofdetection of this assay.The [employer] HIV Ag/Ab Combo assay result andsupplemental assay results should be interpreted inconjunction with the patient's clinical presentation,history and other laboratory results. If the results areinconsistent with clinical evidence, additional testing issuggested to confirm the result. Blood Venous blood specimen / Unknown 01/28/2024 11:25 AM EDT 01/28/2024 2:38 PM EDT Mariela Vanessashanti [employer] LAB BLOOD ORDERABLES Final Res ult [facility] [address] [place] [address] [phone] * THINPREP TIS PAP AND HPV mRNA E6/E7, CT/NG, TRICH (04/02/2022 4:27 PM EDT) Chlamydia trachomatis RNA, TMA, Urogenital NOT DETECTED NOT DETECTED [facility] Clinical Information: None given [facility] COMMENT SEE COMMENT [facility] Comment: The analytical performance characteristics of this assay, when used to test SurePath(TM) specimens have been determined by [employer]. The modifications have not been cleared or approved by the FDA. This assay has been validated pursuant to the CLIA regulations and is used for clinical purposes. For additional information, please refer to https://education.ServiceRelated/faq/XJR700 (This link is being provided for information/ [...] has been evaluated with computer assisted technology. [facility] Fws Faculty Assistant: SEE COMMENT [facility] Comment: SL, CT(ASCP) CT screening location: [address] [address] HPV nRNA E6/E7 Not Detected Not Detected [facility] Comment: Methodology: [place] Gatherer-Mediated Amplification This assay detects E6/E7 viral messenger RNA (mRNA) from 14 high-risk HPV types (16,18,31,33,35,39,45,51,52,56,58,59,66,68). Cervical sources are required for HPV testing. If a vaginal source from a patient who has had a total hysterectomy with removal of cervix was submitted, please contact the testing laboratory for alternative testing options. For additional information, please refer to http://HomeA[employer].ServiceRelated/faq/HRX205c6 (This link if provided for information/ educational [...] of this assay have been determined by [employer]. The modifications have not been cleared or approved by the FDA. This assay has been validated pursuant to the CLIA regulations and is used for clinical purposes. For additional information, please refer to http://[employer].ServiceRelated/ faq/Trichomonastma (This link is being provided for information/ educational purposes only.) 04/02/2022 4:27 PM EDT us Qiana Licona NP LAB PATHOLOGY ORDERABLES Final Result [facility] [address] from Last 3 Months or Most Recently Relevant to Health Maintenance Insurance [facility] C3 Care Teams Hydraulic Governor Assembler Relationship Specialty Start Date End Date Mariela Roland FNP [address] [place] [phone] PCP - General Family Medicine 06/10/22 Darrick Carlton MD [address] [place] [address] [address] [place] [address] General Surgery 09/12/24 Carlos Patel [address] [place] [address] Gynecology 09/12/24
[2025-05-24 08:15] VITALS: BMI 29.4
[2025-05-28] VITALS (8 sets, daily range): BP systolic 89–113; BP diastolic 45–62; PULSE 64–96; RESP 16–18; TEMP 36.1–36.2; O2SAT 98–100
[2025-05-28] MEDS: Lactated Ringers 1,000 ML 100 ML IVCONT (06:35)
[2025-05-28 06:46] LABS: UPreg QC Valid YES
--- NOTE | 2025-05-28 07:14 | HO.ANESPROP2 ---
Documented by User: Jyotsna Lyons NP 05/24/25 12:04 HPI - Anesthesia Eval Consult details Narrative: 39yo F for Excision Hidradenitis RIGHT Axilla and BILATERAL Groin PMFSH Active Problems Active Problems: All Active Problems Proteinuria (Acute) Alopecia areata (Acute) Yeast infection involving the vagina and surrounding area (Acute) Microscopic hematuria (Acute) Complex ovarian cyst (Acute) Dyspareunia (Acute) Sleep apnea (Acute) Poor historian (Acute) Poor historian (Acute) Esophagitis (Acute) Hydradenitis (Acute) Aerophagia (Acute) Epidermal cyst (Acute) Acid reflux (Acute) Past Medical History Medical History GERD (gastroesophageal reflux disease) Gestational diabetes Habitual snoring Aerophagia Epidermal cyst Acid reflux Hydradenitis Asthma Family History Family history of problems with anesthesia: No Surgical History Surgical History History of surgery (04/26/24) History of esophagogastroduodenoscopy (EGD) Hx of section History of incision and drainage History of Problems with Anesthesia: No Social History Social History Household Members Other:: Lives alone no children Are you a primary healthcare administration internship to a significant other at home: Yes Do you presently have visiting nurse or other home services: No Patient Tobacco Use Status: Never used Tobacco Second Hand Smoke Exposure: No Use of substances other than those prescribed or required for medical reasons: No Advance Directives: No Advance Directives Information Provided: Yes Current occupational status: employed Current occupation: [employer] Allergies Allergy/AdvReac Type Severity Reaction Status Date / Time No Known Allergies Allergy Verified 04/19/25 11:22 Home Medications ?Medication ?Instructions ?Recorded ?Confirmed ?Last Taken ?Type albuterol sulfate 90 mcg/actuation 2 puff inhalation QID PRN 08/07/20 04/19/25 Unknown History aerosol inhaler Shortness Of Breath ferrous sulfate 325 mg (65 mg 325 mg PO QAM 07/14/24 04/19/25 Unknown History iron) tablet cholecalciferol (vitamin D3) 25 25 mcg PO DAILY 04/19/25 04/19/25 Unknown History mcg (1,000 unit) chewable tablet Exam Height,Weight and Vital Signs: Height 5 ft 7 in Weight 85.275 kg Pertinent Lab Results Pertinent Lab Results: Laboratory Tests 05/07/25 13:14 WBC 5.0 Hgb 12.9 Hct 39.9 Plt Count 230 Sodium 140 Potassium 4.5 Chloride 108 Carbon Dioxide 26 BUN 5 L Creatinine 0.62 Assessment and Plan Assessment Anesthesia Assessment: Chart Reviewed Final Anesthetic Review Family History of Problems with Anesthesia: No History of Problems with Anesthesia: No Documented by User: Ashleigh Arboleda DO 05/28/25 07:21 [facility] Past Medical History Medical History GERD (gastroesophageal reflux disease) Gestational diabetes Habitual snoring Aerophagia Epidermal cyst Acid reflux Hydradenitis Asthma Family History Family history of problems with anesthesia: No Surgical History Surgical History History of surgery (04/26/24) History of esophagogastroduodenoscopy (EGD) Hx of section History of incision and drainage History of Problems with Anesthesia: No Social History Social History Household Members Other:: Lives alone no children Are you a primary healthcare administration internship to a significant other at home: Yes Do you presently have visiting nurse or other home services: No Patient Tobacco Use Status: Never used Tobacco Second Hand Smoke Exposure: No Use of substances other than those prescribed or required for medical reasons: No Advance Directives: No Advance Directives Information Provided: Yes Current occupational status: employed Current occupation: [employer] Allergies Allergy/AdvReac Type Severity Reaction Status Date / Time No Known Allergies Allergy Verified 04/19/25 11:22 Home Medications ?Medication ?Instructions ?Recorded ?Confirmed ?Last Taken ?Type albuterol sulfate 90 mcg/actuation 2 puff inhalation QID PRN 08/07/20 04/19/25 Unknown History aerosol inhaler Shortness Of Breath ferrous sulfate 325 mg (65 mg 325 mg PO QAM 07/14/24 04/19/25 Unknown History iron) tablet cholecalciferol (vitamin D3) 25 25 mcg PO DAILY 04/19/25 04/19/25 Unknown History mcg (1,000 unit) chewable tablet Exam Exam Date and Time: 05/28/25 0715 Height,Weight and Vital Signs: Height 5 ft 7 in Weight 85.275 kg Vital Signs Temperature 97.2 F 05/28/25 06:32 Pulse Rate 81 05/28/25 06:32 Respiratory Rate 18 05/28/25 06:32 Blood Pressure 113/62 05/28/25 06:32 Pulse Oximetry 99 05/28/25 06:32 Oxygen Delivery Method Room Air 05/28/25 06:32 Temperature 97.2 F 05/28/25 06:32 Pulse Rate 81 05/28/25 06:32 Respiratory Rate 18 05/28/25 06:32 Blood Pressure 113/62 05/28/25 06:32 Pulse Oximetry 99 05/28/25 06:32 Oxygen Delivery Method Room Air 05/28/25 06:32 Airway Mallampati Class: I TM Dist: >3cm Neck ROM: Full Loose/Missing/Broken Teeth: No (patient denies any loose or broken teeth) Heart: S1S2 Lungs: CTAB Assessment and Plan Assessment Anesthesia Assessment: Anesthesia Plan Discussed and Chart Reviewed Final Anesthetic Review Family History of Problems with Anesthesia: No History of Problems with Anesthesia: No NPO: Yes ASA Class: II Final Preanesthetic Review: No Changes in Pt Med Stat, Meds/Allgs Chart Reviewed, Consent Obtained/Reviewed and Anes Risks/Benef Reviewed Patient Risk: Low Procedure Risk: Low Anesthetic Plan Anesthetic Plan: GA and Agree w/ Assess. and Plan Disposition: Standard PACU
--- NOTE | 2025-05-28 07:27 | MHC.SHP ---
Pre-Procedural Eval Section A - 24 Hr Update-Section A only Date of Service: 05/28/25 The patient is an INPATIENT: No Changes since office visit: Yes Patient answered all questions; No Cold of Flu in the past 2 weeks, No New Medical Problems and No Changes in Medication The patient has been examined within 24 hours of the surgical procedure. The History & Physical has been completed within 30 days and I have reviewed it.: No Section B - Complete if H&P > 30 days Chief Complaint: Hidradenitis suppurativa Details of Present Illness: No lesion noted in the right groin currently, 2 lesions noted in the left groin. Right axillary lesion is much smaller but still present. Relevant Family History (Specify if Yes): No Relevant Social History: None Present Medications: see Short Stay Collaborative assessment Medical History: No relevant PMH History of Previous Operations: No relevant previous surgery Allergies: Allergies Allergy/AdvReac Type Severity Reaction Status Date / Time No Known Allergies Allergy Verified 04/19/25 11:22 Review of Systems Sugical H&P ROS: Negative: Constitution, Cardiovascular, Respiratory, Neurological, Psychiatric, Hem-Onc, Allergic/Immunologic, Gastrointestinal, Genitourinary, Musculoskeletal and Integumentary Exam Surgical H&P Exam: Normal: HEENT, Normal: Heart, Normal: Lungs, Normal: Extremities, Normal: Abdomen and Normal: Skin Plan Diagnosis/Plan: Change (No excision for right groin. Excision for right axilla and left groin.) I have reviewed the history and physical and performed a pertinent physical examination on my patient. No changes have occurred unless specified. Time Spent With Patient Time: Total time managing care of this patient today ____ minutes.
--- NOTE | 2025-05-28 08:04 | W.PM.OPN ---
Operative Note Operative Note Date of Service: 05/28/25 Narrative: Preoperative diagnosis: Hidradenitis right axilla and left groin Postoperative diagnosis: Same Procedure: Excision hidradenitis right axilla and left groin Surgeon: Darrick Carlton MD Freelance Patternmaker: Ania Eugene PA-C; VIDAL Hodge Anesthesia: General LMA Indications for procedure: 39-year-old female patient with a chronic history of hidradenitis with 2 areas of persistent pain and swelling despite Hibiclens scrub. One is located in the right axilla measuring approximately 1.5 cm in diameter. A 2nd in the left groin/upper inner thigh involves 2 areas each measuring 1.5 cm in diameter both of which are causing discomfort. Operative findings: Hidradenitis without active infection but chronic swelling. Specimen: Right axilla hidradenitis x1, left groin x2 hidradenitis Estimated blood loss: 2 mL Complications: None Procedure details: The patient was brought to the OR and placed in a supine position. After administering general anesthesia the patient's right arm was extended outward to expose the right axilla. Legs were placed in a frog-leg position. The axilla in the left groin were prepped with Betadine and draped in a sterile fashion. A surgical time-out was called the consent confirmed. Patient received preoperative antibiotics and Venodyne boots were in place. Local anesthesia was infiltrated in the axilla around the palpable cyst. An elliptical incision was then made with a scalpel and carried out through subcutaneous tissue and around the cyst wall. This was passed off the table and sent to pathology for further examination. Hemostasis was assured using electrocautery. Wounds were irrigated with saline solution and suctioned dry. Skin was then closed using interrupted 4-0 nylon sutures. Attention was then directed to the left groin were once again local was infiltrated around the 2 cysts. Beginning in the upper cyst an elliptical incision was made oriented parallel to the leg crease. This was carried out through subcutaneous tissue and around the cyst wall. The cyst was then excised and sent to pathology for further examination. The 2nd cyst was then excised in a similar fashion which was slightly posterior to the 1st. Once again an elliptical incision was made oriented parallel to the leg crease and carried out through subcutaneous tissue. Cyst was excised and sent to pathology for further examination. Hemostasis was assured at both areas using electrocautery. Wounds were irrigated with saline solution and suctioned dry. Skin was then closed using interrupted 4-0 nylon sutures. Sterile dressings consisting of 4 x 4 gauze followed by Tegaderm dressings were then applied. The patient tolerated the procedure well. Sponge, instrument, and needle counts reported as correct. The patient was transferred to PACU in stable condition.
== END 2025-05-28 10:17 | disposition home or self-care (01) ==
PROVIDERS: Nurse Practitioner; PCP Registered Nurse; Visit Provider Surgery
PROC: (CPT 11450; principal; 2025-05-28 07:30)
DX: L73.2 Hidradenitis suppurativa (principal); J45.909 Unspecified asthma, uncomplicated; K21.9 Gastro-esophageal reflux disease without esophagitis; R06.83 Snoring; F40.228 Other natural environment type phobia; Z79.899 Other long term (current) drug therapy; Z98.890 Other specified postprocedural states
CPT/HCPCS: 11450; 11462; 81025; 88305; J0131; J0665; J0690; J1100; J1885; J2003; J2250; J2405; J2704; J3010

== ENCOUNTER → 2025-05-28 05:58 | Outpatient (BNV) | payer MEDICAID, SELFPAY | PROVIDERS: PCP Registered Nurse; Visit Provider Surgery | DX: L73.2 Hidradenitis suppurativa (principal) | CPT/HCPCS: 11450; 11462 ==

== ENCOUNTER 2025-06-07 09:04 | Outpatient (AMB) | payer MEDICAID, SELFPAY ==
--- NOTE | 2025-06-07 09:08 | A.OFFVIS_ITS ---
Vital Signs 3 06/07/25 09:21 Height 5 ft 7 in Weight 193 lb BMI 30.2 BP 124/69 Blood Pressure Location Lt brachial Position Sitting Pulse 77 Intake Visit Reasons: s/p excis hydr right axill and bilateral groin Intake Note: Patient is seen in office for post op assessment post excision hidradenitis right axilla and left groin. Pt c/o: denies any concerns, here for stitch removal surgery:05/28/25 Water Service Supervisor Required: No Freight Inspector: Freight Inspector Present (Aysha CHATMAN) Accompanied by: Self / Same As Patient Allergies No Known Allergies Allergy (Verified 04/19/25 11:22) HPI Comments Details: 39-year-old female patient returning 1 week following excision of an chronically infected cyst of the right axilla and left groin. She tolerated the procedure well and returns today for suture removal. [facility] Medical History GERD (gastroesophageal reflux disease) Gestational diabetes Habitual snoring Aerophagia Epidermal cyst Acid reflux Hydradenitis Asthma Surgical History History of surgery (05/28/25) History of esophagogastroduodenoscopy (EGD) Hx of section History of incision and drainage Social History Household Members Other:: Lives alone no children Are you a primary respiratory care specialist to a significant other at home: Yes Do you presently have visiting nurse or other home services: No Patient Tobacco Use Status: Never used Tobacco Second Hand Smoke Exposure: No Current occupational status: employed Current occupation: [employer] Physical Exam Vital Signs: Last Vital Signs Pulse 77 06/07/25 09:21 BP 124/69 06/07/25 09:21 BMI result Body Mass Index 30.2 Const General: healthy appearing Nutritional Appearance: well nourished Orientation/consciousness: patient oriented x3 Chest Other: Excision site in the right axilla is clean, dry and intact. Sutures removed and Steri-Strips applied. Chest/axillae images: 2 1. Neuro General: patient oriented x3 Extrem Other: Excision site in the left upper inner thigh is clean, dry and intact. Sutures removed and wounds found to be well healed. Upper/lower leg/hip images: 2 1. Assessment & Plan Assessment & Plan (1) Folliculitis: Code(s): L73.9 - Follicular disorder, unspecified Category: Medical Plan 39-year-old female patient status post excision of a folliculitis of the right axilla and left upper inner thigh. She tolerated the procedure well the wounds are healing nicely. I recommended applying Hibiclens scrub several times weekly to help prevent future infections. She will follow up as needed. Medications: New 2 chlorhexidine gluconate 4% (Hibiclens) 1 appl topically 2-3 times weekly in shower, lather affected areas and keep on for 1 minute before rinsing; 237 mL 4RF folliculitis 1 month L73.9 - Follicular disorder, unspecified Coding Level of Care Code Global (47667) Diagnoses Folliculitis L73.9
[2025-06-07 09:21] VITALS: BP 124/69; PULSE 77; BMI 30.2
--- OUTSIDE RECORDS SUMMARY | 2025-06-07 09:59 | XMS_ITS | Encounter Summary ---
Author Organization [facility] Address [address] [place] [id number] Phone Care Team Providers Care Ship Rigger Name Role Phone Aaron Brink NP, Ana Primary Care Provider Mariela Tsang Primary Care Provider [phone] Encounter Details Date Type Department Care Team (Late st Contact Info) Description 08/20/2023 Procedure Pass [facility] L[facility]D Procedures [address] [place] [address] Social History Tobacco Use Types Packs/Day Years [...] 08/20/2023 7:31 AM Loretta Case RN * [place] Suicide Severity Rating Scale (Screener/Recent Self-Report) Question [...] on filedocumented in this encounter Care Teams Ship Rigger Relationship Specialty Start Date End Date Ana Walker NP PCP - General 07/27/17 08/26/23 Mariela Roland FNP [address] [place] [id number] PCP - General Nurse Practitioner 08/27/23 documented as of this encounter Additional Source Comments The information contained in this document represents components of the legal health record. It is not the complete legal health record.[facility]
--- OUTSIDE RECORDS SUMMARY | 2025-06-07 09:59 | XMS_ITS | Encounter Summary ---
Author Organization [employer] Address [address] [place] [address] Care Team Providers Care Box Liner Name Role Phone Mariela Roland Primary Care Provider [phone] Darrick Carlton MD Unavailable [phone] Carlos Patel Unavailable Reason for Visit * Reason Comments Med Change Request Encounter Details Date Type Department Care Team (Late st Contact Info) Description 11/04/2022 Refill [facility] [address] [place] [address] Mariela Roland FNP [address] [place] [address] Iron deficiency Social History Tobacco Use Types [...] documented as of this encounter Care Teams Box Liner Relationship Specialty Start Date End Date Mariela Roland FNP [address] [place] [address] PCP - General Family Medicine 06/10/22 Darrick Carlton MD [address] [place] [address] [address] [place] [address] General Surgery 09/12/24 Carlos Patel [address] [place] [address] Gynecology 09/12/24 Qiana Leach web production artist 08/19/23 01/09/24 documented as of this encounter
--- OUTSIDE RECORDS SUMMARY | 2025-06-07 09:59 | XMS_ITS | Encounter Summary ---
Author Organization [employer] [facility] Address [address] [place] [address] [address] Care Team Providers Care Trestleman Name Role Phone Mariela Roland Primary Care Provider [phone] Darrick Carlton MD Unavailable Carlos Patel Unavailable Encounter Details Date Type Department Care Team (Latest Contact Info) Description 10/16/2020 Abstract [facility] CONVERSIONS Dental, Provider, DDS Social History [...] on filedocumented in this encounter Care Teams Trestleman Relationship Specialty Start Date End Date Mariela Roland FNP [address] [place] [address] PCP - General Family Medicine 06/10/22 Darrick Carlton MD [address] [place] [id number] General Surgery 09/12/24 Carlos Patel [address] [place] [address] Gynecology 09/12/24 Qiana Leach RN Care Manager 08/19/23 01/09/24 documented as of this encounter
--- OUTSIDE RECORDS SUMMARY | 2025-06-07 09:59 | XMS_ITS | Clinical Summary ---
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 REPEAT LABS IN 3 MONTHS 3 Active ferrous gluconate 324 mg (38 mg elemental) tablet PLEASE SEE ATTACHED FOR DETAILED DIRECTIONS 3 Active ALBUTEROL INHL Inhale into the lungs. Active loratadine (CLARITIN) 10 mg tablet Take 10 mg by mouth. 3 Active ibuprofen (ADVIL,MOTRIN) 600 MG tablet Take 1 tablet (600 mg total) by mouth every 6 (six) hours as needed. 30 tablet 3 3 Active docusate sodium (COLACE) 100 MG capsule Take 1 capsule (100 mg total) by mouth daily as needed for mild constipation. 3 Active acetaminophen (TYLENOL) 325 mg tablet Take 3 tablets (975 mg total) by mouth every 6 (six) hours as needed. 30 tablet 1 3 Active albuterol 2.5 mg /3 mL (0.083 %) nebulizer solution 2.5 mg every 4 (four) hours as needed. 4 Active hydrocortisone (ANUSOL-HC) 2.5 % rectal cream Place rectally. 4 Active mupirocin (BACTROBAN) 2 % ointment Apply topically 3 (three) times a day as needed. 4 Active pantoprazole (PROTONIX) 40 MG tablet Take 40 mg by mouth. 4 Active SENEXON-S 8.6-50 mg 2 tablets. 4 Active triamcinolone acetonide 0.1 % ointmentIndicat ions:Genital pruritus Apply topically 2 (two) times a day. 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 Patel for Behcet's Disease in 06/2023 and treatment was successful. Asthma 12/21/2022 Overview (12/21/2022): Uses albuterol inhaler prn. Discussed importance of good control during ; use inhaler prn and fol up with PCP if sx increase. Resolved Problems Problem Noted Date Diagnosed Date Resolved Date Normal , unspecified trimester 08/20/2023 08/15/2024 Breech presentation, no version 08/19/2023 08/15/2024 Assessment & Plan (08/19/2023 5:15 PM EST): The patient was noted to be breech on today's BPP for postdates. Her SEBASTIEN was only 8 to 9 cm. Risk, benefits, and alternatives of management reviewed with the patient including ECV versus primary low-transverse section. After thorough discussion of each, she opted for primary low-transverse section. Anemia during in third trimester 07/01/2023 08/15/2024 Overview (07/24/2023): 28 weeks - Hgb 9.5 On iron Repeat hgb at 37wks 9.3 Assessment & Plan (07/23/2023 5:04 PM EDT): Pt confirms she is taking iron. Will ordered CBC to recheck Hgb. Pt informed to present to lab. Gestational diabetes mellitu s (GDM) in third trimester 06/17/2023 08/15/2024 Overview (07/01/2023): Assessment & Plan (07/23/2023 5:05 PM EDT): Saw [facility] on 06/28/23 for initial visit and on 07/05/23 had only 8 BS readings for review and all were within target. Has next f/u with [facility] next week on 07/26/23. Pt reports she is checking only 2-3 x day and all have been within target range. Assessment & Plan (06/17/2023 3:34 PM EDT): Her diabetic screen was elevated at 190. She has yet to see [facility] or black pickler her testing supplies. Will expedite referral. Genital herpes affecting pre gnancy in second trimester 04/20/2023 07/23/2023 Overview (07/23/2023): Primary outbreak at 23w3d, swab collected and sent but advised it may be negative based on duration of symptoms and healing lesions Treated with valtrex even though > 72 hours from onset to improve symptoms 07/23/23: Saw Dr. Patel who treated for Behcet's Disease and treatment was successful. HSV suppression not needed. This problem to be modified on problem list. Assessment & Plan (06/17/2023 3:50 PM EDT): She still has the lesions on exam. Her HSV PCR was negative but she does have IgG antibodies to HSV-2. As the PCR is negative and these lesions have been present for almost 2 months, I do not necessarily think that this is an HSV outbreak. In addition, the pattern of lesions is unusual for HSV. I think this could possibly represent Behcets disease. I think that it is reasonable to try topical triamcinolone ointment to see if this helps. Assessment & Plan (05/20/2023 3:54 PM EDT): Pt reports no improvement in sx after taking valtrex. States she went to her PCP who stated it's not HSV, but looks like normal vaginal tissue and discharge. pt requesting an exam today. She is c/o vaginal itching with no pain. No internal sx, just external. SSE: Labia majora from 12-2 o'clock and 12-10 o'clock multiple flat 4mm lesions. Appears to be herpatic lesions Labia minora, no lesions. Vagina: no lesions, normal rugae [place]: no clue, no yeast, no trich, no whiff. Referred pt to OB/MD for evaluation. Assessment & Plan (04/20/2023 3:12 PM EDT): Mariaelena notes onset of burning sensation and [...] supervision of normal in third trimester 02/05/2023 08/20/2023 Overview (08/05/2023): OB-CMI score: 2 [12/21/2022] Rh Pos GC/Chlam neg PAP 04/01 NIL HPV neg Tdap declines Flu declines COVID-19 declines Hgb 9.5 GTT 190 - referred to [facility] 28 wk Repeat RPR neg GBS neg PPBC * screening CFDNA low risk Assessment & Plan (08/19/2023 5:14 PM EST): She notes good movement. She denies any vaginal bleeding, leakage of fluid, or regular contractions. Overall, she is doing okay. Assessment & Plan (08/05/2023 3:23 PM EDT): Pedi options handout given. Reviewed signs of labor/reasons to call. Discussed use of Claritin PRN for seasonal allergies. +FM, ongoing BHx, no LOF/VB. Assessment & Plan (07/23/2023 5:14 PM EDT): Mariaelena is a 37yo at 36w6d who presents to routine OB visit today. At time of beginning of visit patient received call from her partner who was just in a car accident, was being evaluated at [facility]. Pt shares she has felt stressed r/t her partner's health during - he had heart failure and a stroke earlier in . Pt just moved into a new apartment on 07/12/23, happy to have a two-bedroom, getting things ready for Lisette . Pt reports to be doing okay. Has concern about her right breast, thought she noticed a lump, normal exam today. Has had some constipation lately, hasn't been taking stool softener, partner noticed a hemorrhoid, not appreciated on exam today, encouraged colace BID. Denies ctx, vb, lof, dfm. GBS obtained today. Reviewed T3 warning signs and when to call. RTO 1 wk. Pt has seen both CNMs and MDs this , prefers to see MDs. Assessment & Plan (06/17/2023 9:07 AM EDT): She notes good movement. She denies any vaginal bleeding, leakage of fluid, or regular contractions. Overall, she is doing okay. Assessment & Plan (05/20/2023 3:57 PM EDT): Mariaelena reports active baby, denies vb, lof, ctxs 3T labs ordered, pt to have drawn in the coming week Just got approved for section 8 housing and is in the process of finding an apartment. ADRI 4-5 days with MD for labial lesions. Assessment & Plan (04/20/2023 3:12 PM EDT): Mariaelena feels well other than genital lesions; see problem list. Recently had Level [facility] at [facility], results reviewed. She has a repeat scheduled as some views were limited. She is very interested in childbirth classes, plans to enroll. Not feeling FM yet, anterior placenta, given reassurance. Assessment & Plan (03/23/2023 4:02 PM EDT): Mariaelena is doing well. Here with her partner. Nausea has resolved she is feeling well. Has not felt movement yet. Happy to hear heart rate. Will do cfDNA today. Anatomy scan ordered and message sent to schedule Level 2. vitamins re-ordered. No other questions or concerns. Assessment & Plan (02/05/2023 4:02 PM EDT): Planning CFDNA but would like to do at [facility] because of vomiting today Nausea and vomiting of , antepartum 08/05/2023 Assessment & Plan (03/23/2023 3:59 PM EDT): Nausea has resolved. Assessment & Plan (02/05/2023 4:01 PM EDT): Rx Unisom/B6 Recommended small frequent meals Will do closer interval follow up to check in with uncertain celeste es in first trimester 01/18/2023 08/15/2024 Overview (01/18/2023): LMP 10/2022; unsure of dates 01/13/23 u/s 9 wks 4 days w/ LUIS 08/14/23; use u/s dates. Review at next visit. Immunizations Immunization Administration Dates Next Due HPV,quadrivalent 09/02/2010,12/16/2009, 9 Hepatitis B Adult 08/28/2016,02/06/2015,02/12/20 11 INFLUENZA, SPLIT VIRUS, TRIV ALENT W/ PRESERVATIVE IM 07/18/2009 Influenza Quadrivalent Preservative Free IM 02/2020 Influenza Quadrivalent w/ Preservative IM 2017 MMR 02/11/2011 Tdap 02/11/2011 Family History Medical History Relation Comments No Known Problems Father No Known Problems Maternal Grandfather No Known Problems Maternal Grandmother Lupus Mother No Known Problems Paternal Grandfather No Known Problems Paternal Grandmother Relation Status Comments Father Maternal Grandfather Maternal Grandmother Mother Paternal Grandfather Paternal Grandmother Social History Tobacco Use Types Packs/Day Years Used Date Smoking Tobacco: Never Smokeless Tobacco: Never Tobacco Cessation:Counseling Given: Not Answered Alcohol Use Standard Drinks/Week Comments Not Currently [...] Orientation Straight 08/20/2023 7: 30 AM EST Last Filed Vital Signs Vital Sign Reading Time Taken Comments Blood Pressure 98/66 12/06/2024 9:15 AM EST Pulse 87 08/24/2023 7:54 AM EST Temperature 36.6 C (97.9 F) 08/24/2023 7:54 AM EST Respiratory Rate 18 08/24/2023 7:54 AM EST Oxygen Saturation 100% 08/24/2023 7:54 AM EST Inhaled Oxygen Concentration - - Weight 82.7 kg (182 lb 6.4 oz) 12/06/2024 9:15 A M EST Height 171.5 cm (5' 7.5 ) 09/10/2023 1:23 PM EST Body Mass Index 28.15 09/10/2023 1:23 PM EST Plan of Treatment Health Maintenance Due Date Last Done Comments DEPRESSION SCREENING 1999 PNEUMOCOCCAL VACCINES (0-49 years) (1 of 2 - PCV) 2006 PAP SMEAR 2008 Adult Td,Tdap Booster 02/11/2021 02/11/2011 COVID-19 VACCINE (1 - 2023-2 5 season) 2024 SCREENING FOR DIABETES 08/20/2026 3, 06/28/2023 HEPATITIS C SCREENING Completed 12/21/2022 HIV ONE-TIME SCREENING (18-6 5 YEARS) Completed 12/21/2022 SMOKING STATUS SCREENING (On ce After 26 Yrs) Completed 08/15/2024 HEPATITIS A VACCINES Aged Out No long er eligible based on patient's age to complete this topic HIB VACCINES Aged Out No longer eligi ble based on patient's age to complete this topic MENINGOCOCCAL VACCINES (ACWY) Aged Out No longer eligible based on patient's age to complete this topic MENINGOCOCCAL VACCINES (B) Aged Out N o longer eligible based on patient's age to complete this topic Medical Devices Not on file Procedures Procedure Name Priority Date/Time Associated Diagnosis Comments HEPATITIS C ANTIBODY, QUALITATIVE Routine 12/21/2022 10:12 AM EDT Need for hepatitis C screening test from Last 3 Months or Most Recently Relevant to Health Maintenance Results * Hepatitis C antibody, qualitative (12/21/2022 10:12 AM EDT) HCV NON-REACTIV E NON-REACTI VE [facility] Blood 12/21/2022 10:1 2 AM EDT 12/21/2022 10:16 AM EDT us 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 Richards 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 BLOOD ORDERABLES Final Res ult [address] [id number] from Last 3 Months or Most Recently Relevant to Health Maintenance Insurance [facility] C3 [employer] ULTRA Testing SAFETY NET PARTIAL [facility] C3 ACO HEALTH SAFETY NET PARTIAL [place] [address] [address] C3 ACO [facility] SAFETY NET [place] [address] [place] [address] C3 [employer] HEALTH SAFETY [place] [address] [place] [address] C3 ACO [facility] SAFETY NET PART[place] [address] C3 ACO [facility] SAFETY NET PARTIAL Advance Directives For more information, please contact: [phone] (9AM - 5PM [employer], Wednesday-Wednesday) * Full Code (Latest Code Status on File) Date Activated Date Inactivated Comments 08/20/2023 9:22 AM Question Answer Comments Code Status Confirmed With: Patient * Full Code Date Activated Date Inactivated Comments 08/20/2023 5:47 AM 08/20/2023 9:22 AM Question Answer Comments Code Status Confirmed With: Patient 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 It is not the complete legal health record.[facility]
--- OUTSIDE RECORDS SUMMARY | 2025-06-07 09:59 | XMS_ITS | Clinical Summary ---
Author Organization [employer] Address [address] [facility] [address] [place] [address] Care Team Providers Care Engineering Intern Name Role Phone VanessashantiElle QUIQUE Primary Care Provider [phone] Darrick Carlton MD Unavailable [phone] Carlos Patel Unavailable Allergies No known active allergies Medications albuterol (2.5 MG/3ML) 0.083% nebulizer solution Take 3 mL (2.5 mg) by nebulization every 4 (four) hours if needed for wheezing or shortness of breath. 75 mL 11 024 Active loratadine (Claritin) 10 MG tablet Take 1 tablet (10 mg) by mouth Once per day. 90 tablet 3 024 Active hydrocortisone (Anusol-HC) 2.5 % rectal creamIndications :Other hemorrhoids Use thin layer to affected area (hemorrhoids) twice daily as needed 28 g 2 024 Active senna-docusate (Senexon-S) 8.6-50 MG tabletIndication s:Other hemorrhoids,Cons tipation, unspecified constipation type TAKE 1-2 TABLETS BY MOUTH IF NEEDED EACH DAY FOR CONSTIPATION. 180 tablet 1 025 Active albuterol (Ventolin HFA) 108 (90 Base) MCG/ACT inhalerIndicatio ns:Mild intermittent asthma without complication Inhale 2 puffs every 4 (four) hours if needed for wheezing. 18 g 025 Active levonorgestrel-e thinyl estradiol (Aviane, Alesse, Lessina) 0.1-20 MG-MCG tabletIndication s:Encounter for initial prescription of contraceptive pills Take 1 tablet by mouth Once per day. 90 tablet 2 025 2025 Active ammonium lactate (Amlactin) 12 % creamIndications :Xerosis of skin APPLY THIN LAYER BY TOPICAL ROUTE TO BOTTOM OF FEET 1-2 TIMES PER DAY NEEDED FOR DRY SKIN 385 g 2 025 Active Cholecalciferol (Vitamin D3) 25 MCG (1000 UT) chewable tabletIndication s:Vitamin D insufficiency CHEW 1 TABLET BY MOUTH EVERY DAY 90 tablet 1 025 Active pantoprazole (ProtoNix) 40 MG EC tabletIndication s:Gastroesophage al reflux disease with hiatal hernia TAKE 1 TABLET BY MOUTH EVERY DAY BEFORE A MEAL 90 tablet 1 025 Active simethicone (Mylicon) 80 MG chewable tabletIndication s:Bloating Chew 1 tablet (80 mg) every 6 (six) hours if needed (bloating). 60 tablet 1 025 2025 Active sucralfate (Carafate) 1 g tabletIndication s:Gastroesophage al reflux disease with hiatal hernia Take 1 tablet by mouth every 12 (twelve) hours. 180 tablet 1 025 Active sucralfate (Carafate) 1 g tablet Take 1 tablet by mouth every 12 (twelve) hours. 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 Carlton at [facility] Surgery Assessment & Plan (09/12/2024 7:55 PM EST): -S/p excision of HS lesion right groin x 2: April 2024 & Jul 2024 at [facility] Surgery - Dr. Carlton Microscopic hematuria 04/06/2024 Assessment & Plan (04/24/2025 3:38 PM EDT): Following with [facility] Urology - LEELEE Costa 02/14/25: US retroperitoneal ordered by KIRK Costa. Impression - normal kidneys. Assessment & Plan (05/15/2024 1:03 PM EDT): Following with [facility] Urology - LEELEE Costa Plan: labs and retroperitoneal US follow up in February 2025 with Urology Hematochezia 01/28/2024 Assessment & Plan (01/28/2024 10:45 AM EDT): History of blood in stool Referral to GI placed 12/28/23 Reviewed ED/urgent care precautions Upcoming appt end of January 2024. Healthcare maintenance 12/28/2023 Overview (04/24/2025): Pap: 04/02/22 NIL/HPV neg, repeat due 2026 Optometry: followed by [facility] Eye Care Last PE: 04/23/25 History of [...] (01/28/2024 7:24 AM EDT): -Previously followed by [facility] Derm team and tx with Minoxidil (although discontinued use during ) Assessment & Plan (12/26/2023 6:23 PM EDT): -Minoxodil not advised during -Refill of betamethasone, although advised of risks and SE of termite treater use. Pt to use sparingly PRN Assessment & Plan (01/26/2023 1:18 PM EDT): -Minoxodil not advised during -Refill of betamethasone, although advised of risks and SE of termite treater use. Pt to use sparingly PRN Assessment & Plan (12/04/2022 9:44 AM EST): -Discontinue Betamethasone and initiate 5% Minoxidil Foam to use 1-2x daily. -Reassured patient, this will self-resolve. Assessment & Plan (10/05/2022 8:26 PM EST): -Follow up with Derm as scheduled Nov 2021 -Confirmed with [facility] Derm team they have the ability to do intralesional injections day of if appropriate -Check labs including JASVIR, RF, TSH, liver panel, iron studies -Patient education handout from [employer] provided Hypercholesterolemia 09/23/2022 Assessment & Plan (05/21/2025 12:22 PM EDT): Lab Results Component Value Date CHOL 183 05/07/2025 CHOL 207 (H) 01/28/2024 TRIG 64 05/07/2025 TRIG 96 01/28/2024 TRIG 91 09/24/2022 HDL 47 05/07/2025 HDL 42 01/28/2024 LDLCHOLCAL 124 (H) 05/07/2025 LDLCHOLCAL 146 (H) 01/28/2024 -Slight improvement in LDL over the past year, although still above goal -continue lifestyle modification Assessment & Plan (04/24/2025 3:41 PM EDT): [...] hiatal cynthia ia 06/03/2020 Assessment & Plan (05/21/2025 12:22 PM EDT): - Previously following with [facility] GI - pantoprazole 40mg daily and sucralfate (through GI) -Refill of medications and referred to reestablish with GI. Assessment & Plan (04/24/2025 3:43 PM EDT): -Following with [facility] GI -Continues with pantoprazole 40mg daily and sucralfate (through GI) Assessment & Plan (01/28/2024 7:26 AM EDT): -Following with [facility] GI -Continues with pantoprazole 40mg daily and sucralfate (through GI) Assessment & Plan (10/05/2022 8:22 PM EST): -Following with [facility] GI -Continues with pantoprazole 40mg daily and sucralfate (through GI) Vitamin D insufficiency 02/06/2019 Overview (05/21/2025): Lab Results Component Value Date [id number] 25.8 (L) 05/07/2025 [id number] 32.5 05/01/2024 Assessment & Plan (05/21/2025 12:22 PM EDT): - Encouraged to continue with vitamin D 1000 units daily Assessment & Plan (04/24/2025 3:42 PM EDT): [...] [facility] Assessment & Plan (01/30/2024 8:41 AM EDT): Continue albuterol PRN Reviewed Rule of 2's to assess control, currently well controlled DME request for neb machine: 12/28/23 (faxed to [facility]) - recieved Assessment & Plan (12/28/2023 12:10 [...] problem list. Recently had Level II at [facility], results reviewed. She has a repeat scheduled [...] Encounters Date Type Department Care Team Description 05/21/2025 11:00 AM EDT Office Visit [facility] [address] [place] [address] Mariela Roland FNP Gastroesophageal reflux disease with hiatal hernia (Primary Dx); Vitamin D insufficiency; Hypercholesterolemia; Bloating 05/21/2025 Travel 05/11/2025 Results Follow-Up [facility] [address] [place] [address] Katalina Orellana MD Lipid Panel, Standard, Hemoglobin A1c, TSH with Reflex to Free T4, Additional followed-up results: 9 05/07/2025 Telephone [facility] [address], [place] [phone] Mariela Roland FNP Lab Orders 05/07/2025 Refill [facility] [address], [place] [phone] Mariela Roland FNP Vitamin D insufficiency 04/26/2025 Refill [facility] [address] [place] [address] Mariela Roland FNP Xerosis of skin 04/23/2025 10:30 AM EDT Office Visit [facility] [address] [place] [address] Mariela Roland FNP Encounter for routine history and physical examination of adult (Primary Dx); Healthcare maintenance; Xerosis of skin; Encounter for initial prescription of contraceptive pills; Microscopic hematuria; Hypercholesterolemia; Dietary counseling; Exercise counseling; Vitamin D deficiency; History of gestational diabetes; Gastroesophageal reflux disease with hiatal hernia; Constipation, unspecified constipation type; Mild intermittent asthma without complication; Hidradenitis suppurativa 04/23/2025 Travel 04/16/2025 Patient Outreach [facility] [address] [place] [address] Mariela Roland FNP Pre-visit Planning (Pre visit planning unable to LVM ) from Last 3 Months Immunizations Immunization Administration [...] Sign Reading Time Taken Comments Blood Pressure 132/72 05/21/2025 11:29 AM EDT Pulse 78 05/21/2025 11:29 AM EDT Temperature 36.2 C (97.1 F) 05/21/2025 11:29 AM EDT Respiratory Rate 16 05/21/2025 11:29 AM EDT Oxygen Saturation 98% 05/21/2025 11:29 AM EDT Inhaled Oxygen Concentration - - Weight 83 kg (183 lb) 05/21/2025 11:29 AM EDT Height 168.9 cm (5' 6.5 ) 05/21/2025 11:29 AM ED T Body Mass Index 29.09 05/21/2025 11:29 AM EDT Plan of Treatment Health Maintenance Due Date Last Done Comments Family Planning (PISQ) 2002 Pneumococcal Vaccine: Pediatrics (0 to 5 Years) and At-Risk Patients (6 to 49) Years (1 of 2 - PCV) 2006 Dental Prophylaxis 12/30/2019 06/30/2019, 0 12/27/2018, 05/26/2018, Additional history exists Dental X-Ray: Full Mouth 10/01/2020 09/30/2017, 07/12 DTaP/Tdap/Td Vaccines (2 - Td or Tdap) 02/11/2021 02/11/2011 Dental Oral Exam 04/16/2021 10/16/2020, , 01/11/2019, Additional history exists Dental X-Ray: Bitewings 10/17/2021 10/16/19, 05/07/2020, 06/30/2019, Additional history exists Influenza Vaccine (#1) 2025 , 06/30/2018, 07/18/2009 [...] 75+ series) 2062 HPV Vaccines Completed 09/02/2010, 0305/2010, 07/18/2009 Hepatitis B Vaccines Completed 08/28/2016, 02/06/2015, 02/11/2011 HIV Screening Completed 05/07/2025, 01/09, 12/21/2022, Additional history exists Hepatitis C Screening Completed 05/07/2025 , 01/28/2024, 09/02/2022 HIB Vaccines Aged Out No longer eligi [...] Procedure Name Priority Date/Time Associated Diagnosis Comments GROSS AND MICROSCOPIC LEVEL 4 Routine 05/28/2025 8:05 AM EDT HCG, QL, URINE Routine 05/28/2025 6:12 AM EDT IRON AND TOTAL IRON BINDING CAPACITY Routine 05/07/2025 1:14 PM EDT Healthcare maintenance FERRITIN Routine 05/07/2025 1:14 PM EDT Healthcare maintenance VITAMIN D,25-OH,TOTAL,IA Routine 05/07/2025 1:14 PM EDT Healthcare maintenance HIV 1/2 ANTIGEN/ANTIBODY, FOURTH GENERATION W/RFL Routine 05/07/2025 1:14 PM EDT Healthcare maintenance RPR (MONITOR) W/REFL TITER Routine 05/07/2025 1:14 PM EDT Healthcare maintenance HEPATITIS C VIRAL RNA, QUANTITATIVE, REAL-TIME PCR Routine 05/07/2025 1:14 PM EDT Healthcare maintenance CBC WITH AUTO DIFFERENTIAL Routine 05/07/2025 1:14 PM EDT Healthcare maintenance COMPREHENSIVE METABOLIC PANEL Routine 05/07/2025 1:14 PM EDT Healthcare maintenance TSH W/REFLEX TO FT4 Routine 05/07/2025 1 :14 PM EDT Healthcare maintenance HEMOGLOBIN A1C Routine 05/07/2025 1:14 PM EDT Healthcare maintenance LIPID PANEL, STANDARD Routine 05/07/2025 1:14 PM EDT Healthcare maintenance CHLAMYDIA/TRICHOMONAS /NEISSERIA GONORRHOEAE, PCR, URINE Routine 05/07/2025 12:00 AM EDT POCT , URINE Routine 04/23/2025 11:43 AM EDT Encounter for initial prescription of contraceptive pills THINPREP IMAGING PAP AND HPV MRNA E6/E7, [...] Recently Relevant to Health Maintenance Results * Gross and Microscopic Level 4 (05/28/2025 8:05 AM EDT) 05/28/2025 8:05 AM EDT 05/28/2025 9:30 AM EDT [facility] - 05/29/2025 12:25 PM EDT ----- ------- Name: Mariaelena Calles Age/Sex: 39/F : 1985 Unit#: [id number] Attend Dr: Darrick Carlton MD Re05/28/25 Status: [facility] Location: [facility] Disch: ----- ------- SPEC : [id number] RECD: 05/28/25 STATUS: KEYSHAWN LAINEZ NUM: [id number] BRENDAN: 05/28/[address] [facility] [address]: Darrick Carlton MD ENTERED: 05/28/25 SP TYPE: Surgical OTHR DR: Mariela Roland ORDERED: Gross Micro L4/2 Diagnosis A. Skin, right axilla, excision: Skin and subcutaneous tissue with marked fibrosis, acute and chronic inflammation, abscess formation and features of ruptured cyst; no malignancy identified. B. Skin, left groin, excision: Skin and subcutaneous tissue with marked fibrosis, acute and chronic inflammation, abscess formation and ruptured follicle cyst; no malignancy identified. Clinical History Hidradenitis suppurativa Microscopic Description A, B. Microscopic sections reviewed. Material Received A. Right axillary hidradenitis B. Left groin hidradenitis Gross Description Received in two parts. Part A: Received in formalin labeled right axillary hidradenitis is a 2.1 x 0.6 cm ellipse of ramirez skin and subcutaneous tissue excised maximum depth of 1.1 cm. The skin surface is slightly puckered and retracted. The margins are inked and the specimen serially sectioned to reveal a 0.4 cm clefted-cystic focus within the dermal and subcutaneous tissues. The specimen is entirely submitted in cassettes A1 and A2. Part B: Received in formalin labeled left groin hidradenitis are two elliptical portions of ramirez skin and subcutaneous tissue each measuring 1.6 x 0.6-0.9 cm, excised to a maximum depth of 0.9 cm. The skin surface of each displays a central peripherally well-demarcated, pearly, pale, betancourt-white focus each measuring 0.6 x 0.4 cm which very closely approaches the peripheral margins. The margins are inked and each portion of tissue is serially sectioned to reveal edematous, congested and hemorrhagic ramirez-pink fibrous dermal tissue and unremarkable subcutaneous fat. Each portion of tissue is entirely submitted in cassettes B1 and B2, respectively. CEDS CONTINUED ON NEXT PAGE ----- ------- Name: Mariaelena Calles Age/Sex: 39/F : 1985 Unit#: [id number] Attend Dr: Darrick Carlton MD Re05/28/25 Status: [facility] Location: [facility] Disch: ----- ------- SPEC : [id number] RECD: 05/28/25 STATUS: KEYSHAWN LAINEZ NUM: [id number] BRENDAN: 05/28/[address] [facility] [address]: Darrick Carlton MD ENTERED: 05/28/25 SP TYPE: Surgical OTHR DR: Mariela Roland KNOWLEDGE ANALYST ORDERED: Gross Micro L4/2 IHC S/NG Disclaimer NOTE: Unless otherwise stated, all tissue is formalin-fixed and paraffin-embedded. Some or all of the immunohistochemical tests reported herein may have been developed and their performance characteristics determined by [facility]. They have not been cleared or approved by the U.S. Food and Drug Administration (FDA). However, the FDA has determined that such clearance or approval is not necessary. This laboratory is certified under the Clinical Laboratory Improvement Amendments of 1988 (CLIA) as qualified to perform high complexity clinical laboratory testing. Copies To: Darrick Carlton MD [facility] Sur[facility] [address] [place] [address] [id number] Mariela Roland KNOWLEDGE ANALYST [address] [facility] [place] [address] ----- ------- Signed (signature on file) Al Bonilla MD 05/29/25 1225 ----- ------- END OF REPORT Generic External Data Provider LAB CYTOLOGY ORDE RABLES Final Result Performing Organization Address [facility] de Phone Number [facility] [address] [place] [phone] * HCG, Qualitative, Urine (05/28/2025 6:12 AM EDT) Urine NEGATIVE NEGATIVE [facility] Comment:This test was develo ped to detect early . Falsenegative results may occur after the 5th - 7th week ofpregnancy when using this test method. If clinicallyindicated, consider a serum hCG. 05/28/2025 6:12 AM EDT 05/28/2025 6:44 AM EDT Generic External Data Provider LAB URINE ORDERAB LES Final Result Performing Organization Address [facility] Co de Phone Number [facility] [address] [place] [phone] * (ABNORMAL) Vitamin D, 25-Hydroxy, Total, Immunoassay (05/07/2025 1:14 PM EDT) Vitamin D 25-OH Total 25.8(L) >30 ng/mL [facility] Comment: Health Based Reference Values*< 20 ng/mL [id number] ng/mL Insufficient> 30 ng/mL Sufficient*Luis M MEZA. N Engl J Med. 2007;357:266-280There is no well-established upper level of normal vitamin Dlevels. Some laboratories use 50 ng/mL as an upper limit ofnormal. However, toxicity is patient-dependent and may occurat any level. Careful correlation with the patient'spresentation is necessary and, if there is concern forvitamin D toxicity, treatment should be consideredirrespective of the serum level.Care must be taken in interpreting Vitamin D results fromdifferent laboratories and methodologies. Published datademonstrated that results from patients undergoinghemodialysis may show a negative bias when tested withvarious automated 25-OH vitamin D assays when compared toLC-MS/MS.When testing samples from patients whose predominant form ofVitamin D is Vitamin D2, such as patients receiving VitaminD2 supplementation, results that are subtherapeutic shouldbe confirmed with another method such as LC-MS/MS. Blood Venous blood specimen / Unknown 05/07/2025 1:14 PM EDT 05/07/2025 2:45 PM EDT Mariela Roland [facility] LAB BLOOD ORDERABLES Final Res ult [facility] [address] [place] [phone] * TSH with Reflex to Free T4 (05/07/2025 1:14 PM EDT) TSH reflex Free T4 0.76 0.32 - 4.0 uIU/mL [facility] Blood 05/07/2025 1:14 PM EDT 05/07/2025 2:45 PM EDT us Mariela Roland KNOWLEDGE ANALYST LAB BLOOD ORDERABLES Final Res ult Performing Organization Address [facility]/ZIP Co de Phone Number [facility] [address] [place] [phone] * Hepatitis C Viral RNA, Quantitative, Real-Time PCR (05/07/2025 1:14 PM EDT) [facility] Hepatitis C Viral Load <15 NOT DETECTED NOT DETECTED IU/mL [facility] HCV Log PCR <1.18 NOT DETECTED NOT DETECTED Log IU/mL [facility] Comment:For additional infor mation, please refer [email or web address](This link is being provided for informational/educational purposes only.)THIS TEST WAS PERFORMED AT:[employer] [place] [phone] TONG MD Blood 05/07/2025 1:14 PM EDT 05/07/2025 2:45 PM EDT Mariela Roland KNOWLEDGE ANALYST LAB BLOOD ORDERABLES Final Res ult Performing Organization Address [facility] Co de Phone Number [facility] [address] [place] [phone] * (ABNORMAL) CBC auto differential (05/07/2025 1:14 PM EDT) Pathologist [facility] White Blood Count 5.0 4.8 - 10.8 X10*3/uL [facility] Red Blood Count 4.39 4.20 - 5.50 X10*6/uL [facility] Hemoglobin 12.9 12.0 - 16.0 g/dl [facility] Hematocrit 39.9 37.0 - 47.0 % [facility] Mean Corpuscular Volume 90.9 80.0 - 98.0 fL [facility] Mean Corpuscular Hemoglobin 29.4 27.0 - 33.0 pg [facility] Mean Corpuscular HGB Conc 32.3 31.0 - 35.0 g/dl [facility] Red Cell Distribution Width 12.4 11.0 - 16.0 % [facility] Platelet Count 230 160 - 400 X10*3/uL [facility] Mean Platelet Volume 11.2 9.4 - 12.3 fL [facility] Neutrophils Percent Auto 53.7 45 - 73 % [facility] Imm Gran Pct Auto 0.4 0.0 - 0.4 % [facility] Lymphocytes Percent Auto 32.3 20 - 40 % [facility] Monocytes Percent Auto 6.6 2 - 11 % [facility] Eosinophils Percent Auto 5.8(H) 0 - 4 % [facility] Basophils Percent Auto 1.2 0 - 2 % [facility] NRBC Pct Auto 0.0 0.0 - 0.2 /100WBC [facility] Neutrophils Absolute Auto 2.7 2.0 - 8.3 x10*3/uL [facility] Imm Gran Abs Auto 0.02 0.00 - 0.03 X10*3/uL [facility] Lymphocytes Absolute Auto 1.6 1.2 - 4.9 X10*3/uL [facility] Monocytes Absolute Auto 0.3 0.1 - 1.2 X10*3/uL [facility] Eosinophils Absolute Auto 0.3 0.0 - 0.4 X10*3/uL [facility] Basophils Absolute Auto 0.1 0.0 - 0.2 X10*3/uL [facility] NRBC Abs Auto 0.000 0.0 - 0.012 X10*3/uL [facility] Blood Venous blood specimen / Unknown 05/07/2025 1:14 PM EDT 05/07/2025 2:43 PM EDT us Mariela Roland KNOWLEDGE ANALYST LAB BLOOD ORDERABLES Final Res ult [facility] [address] [place] [phone] * Iron And Total Iron Binding Capacity (05/07/2025 1:14 PM EDT) Pathologist [facility] Iron 72 30 - 160 mcg/dL [facility] Total Iron Binding Capacity 292 228 - 428 mcg/dL [facility] Percent Iron Saturation 25 15 - 50 % [facility] Unsaturated Iron Binding 220 ug/dL [facility] Blood Venous blood specimen / Unknown 05/07/2025 1:14 PM EDT 05/07/2025 2:45 PM EDT us Mariela Phalen KNOWLEDGE ANALYST LAB BLOOD ORDERABLES Final Res ult Performing Organization Address [facility]/ZIP Co de Phone Number [facility] [address] [place], [place] [phone] * RPR (Monitor) with Reflex to??Titer (05/07/2025 1:14 PM EDT) Pathologist [facility] RPR (Monitor) w/Refl Titer NON-REACTI VE NON-REACT NAYELY [facility] Comment:THIS TEST WAS PERFOR MED AT:[facility] [employer] [place] [phone] TONG MD Rapid Plasma Reagin Ab Titer TNP [facility] Blood Venous blood specimen / Unknown 05/07/2025 1:14 PM EDT 05/07/2025 2:45 PM EDT Mariela Phalen KNOWLEDGE ANALYST LAB BLOOD ORDERABLES Final Res ult Performing Organization Address [facility]/ZIP Co de Phone Number [facility] [address] [place], [place] [phone] * HIV-1/2 Antigen and Antibodies, Fourth Generation, with Reflexes (05/07/2025 1:14 PM EDT) Pathologist [facility] HIV AB/AG Nonreactive Nonreactive [facility] Comment:HIV-1 p24 Ag and/or HIV-1/HIV-2 Ab not detected.A test result that is nonreactive does not exclude thepossibility of exposure to or infection with HIV-1 and/orHIV-2. Nonreactive results in this assay for individualswith prior exposure to HIV-1 and/or HIV-2 may be due toantigen and antibody levels that are below the limit ofdetection of this assay.The [employer] HIV Ag/Ab Combo assay result andsupplemental assay results should be interpreted inconjunction with the patient's clinical presentation,history and other laboratory results. If the results areinconsistent with clinical evidence, additional testing issuggested to confirm the result. Blood Venous blood specimen / Unknown 05/07/2025 1:14 PM EDT 05/07/2025 2:45 PM EDT Mariela Roland [facility] LAB BLOOD ORDERABLES Final Res ult Performing Organization Address [facility] Co de Phone Number [facility] [address] [place] [phone] * Hemoglobin A1c (05/07/2025 1:14 PM EDT) Hemoglobin A1c 5.2 <6.0 % [facility] Comment:Hemoglobin A1C Refer ence Range Adults: 4.8 - 6.0 % Non diabetic: < 6.0 % Goal: < 7.0 %Additional Action Suggested: > 8.0 %Note: Hemoglobin A1c results are invalid for patients with abnormal amounts of HbF. Blood transfusions may impact the HbA1c concentration in the patient sample. Estimated Average Glucose 103 mg/dL [facility] Comment:eAG = Estimated ave rage glucose which is %A1C expressed asaverage glucose, using the formula of the S7I-AuwnydoUdtoqic Glucose study (ADAG), Diabetes Care, Vol.31,#8,May. 2007 Blood Venous blood specimen / Unknown 05/07/2025 1:14 PM EDT 05/07/2025 2:43 PM EDT Mariela Roland [facility] BLOOD ORDERABLES Final Res ult Performing Organization Address [facility] Co de Phone Number [facility] [address] [place] [phone] * Ferritin (05/07/2025 1:14 PM EDT) Ferritin 21 10 - 122 ng/mL [facility] Blood Venous blood specimen / Unknown 05/07/2025 1:14 PM EDT 05/07/2025 2:45 PM EDT us Marielafay Roland [facility] BLOOD ORDERABLES Final Res ult Performing Organization Address [facility] Co de Phone Number [facility] [address] [place] [address] [phone] * (ABNORMAL) Lipid Panel, Standard (05/07/2025 1:14 PM EDT) Triglycerides 64 <150 mg/dL [facility] Comment:Desirable Triglyceri de: less than 150 mg/dLBorderline High Triglyceride 150-199 mg/dLHigh Triglyceride: 200-499 mg/dLVery High Triglyceride: greater than or equal to 5OO mg/dL Cholesterol 183 <200 mg/dL [facility] Comment:Desirable Cholestero l: less than 200 mg/dLBorderline High Cholesterol: 200-239 mg/dLHigh Cholesterol: greater than 239 mg/dL LDL Cholesterol Calculated 124(H) <100 mg/dL [facility] Comment:Desirable LDL: less than 100 mg/dLNear Optimal/Above Optimal LDL: 110- 129 mg/dLBorderline High LDL: 130-159 mg/dLHigh LDL: 160-189 mg/dLVery High LDL: greater than or equal to 190 mg/dL HDL Cholesterol 47 >40 mg/dL [facility] Comment:Desirable HDL: great er than 40 mg/dL Note: This HDL assay may give artificially low results in patients with liver disease. Blood Venous blood specimen / Unknown 05/07/2025 1:14 PM EDT 05/07/2025 2:45 PM EDT us Mariela Vanessashanti KNOWLEDGE ANALYST LAB BLOOD ORDERABLES Final Res ult [facility] [address] [place] [address] [phone] * (ABNORMAL) Comprehensive Metabolic Panel (05/07/2025 1:14 PM EDT) Sodium 140 135 - 145 mmol/L [facility] Potassium 4.5 3.3 - 5.1 mmol/L [facility] Chloride 108 96 - 108 mmol/L [facility] Carbon Dioxide 26 22 - 29 mmol/L [facility] Anion Gap 11(L) 12 - 20 [facility] Urea Nitrogen (BUN) 5(L) 9 - 16 mg/dL [facility] Creatinine, Serum 0.62 0.5 - 1.4 mg/dL [facility] Estimated Glomerular Filt Rate >60 [facility] Comment:Chronic Kidney Disea se: Estimated GFR < 60 mL/min/1.55a3Ftdwmx Kidney Disease: Estimated GFR < 15 mL/min/1.73m2 Glucose 88 60 - 115 mg/dL [facility] Calcium 8.5 8.4 - 10.2 mg/dL [facility] Bilirubin, Total 0.3 0.0 - 1.0 mg/dL [facility] Aspartate Amino Transferase 18 5 - 31 U/L [facility] Alanine Aminotransferase 21 0 - 31 U/L [facility] Total Protein 6.5 6.5 - 8.0 g/dL [facility] Albumin Level 4.2 3.5 - 5.0 g/dL [facility] Alkaline Phosphatase 63 39 - 117 U/L [facility] Blood Venous blood specimen / Unknown 05/07/2025 1:14 PM EDT 05/07/2025 2:45 PM EDT Mariela GAMEZP LAB BLOOD ORDERABLES Final Res ult Performing Organization Address [facility]/ZIP Co de Phone Number [facility] [address] [place] [address] [phone] * Chlamydia/Trichomonas/Neisseria gonorrhoeae, PCR, Urine (05/07/2025 12:00 AM EDT) CT PCR, Urine NOT DETECTED Not Detect. [facility] Comment:A not detected test result does not exclude the possibilityof infection because test results can be affected byimproper specimen collection, concurrent antibiotic therapy,or the number of organisms in the specimen which may bebelow the sensitivity of the test. As with many diagnostictests, results from the Xpert CT/NG assay should beinterpreted in conjunction with other laboratory andclinical data available to the clinician.The Xpert CT/NG assay should not be used for the evaluationof suspected sexual abuse or for other medico-legalindications. Additional testing is recommended in anycircumstance when false positive or false negative resultscould lead to adverse medical, social or psychologicalconsequences. NG PCR, Urine NOT DETECTED Not Detect. [facility] Comment:A not detected test result does not exclude the possibilityof infection because test results can be affected byimproper specimen collection, concurrent antibiotic therapy,or the number of organisms in the specimen which may bebelow the sensitivity of the test. As with many diagnostictests, results from the Xpert CT/NG assay should beinterpreted in conjunction with other laboratory andclinical data available to the clinician.The Xpert CT/NG assay should not be used for the evaluationof suspected sexual abuse or for other medico-legalindications. Additional testing is recommended in anycircumstance when false positive or false negative resultscould lead to adverse medical, social or psychologicalconsequences. 05/07/2025 05/07/2025 us Mariela Roland [facility] URINE ORDERABLES Final Res ult [facility] [address] [place] [phone] * POCT Urine (04/23/2025 11:43 AM EDT) Preg Test, Ur Negative Negative, Indeterminate, None Detected, Invalid, Specimen unsatisfactory for evaluation, Weakly Positive, 2+ Comment:internal controls pa ssed QC Media Lot # [id number] Lot# Expiration Date [id number] Urine 04/23/2025 11:4 3 AM EDT us Mariela Roland KNOWLEDGE ANALYST POINT OF CARE TEST ENTER/EDIT ORDERABLES Final Result * THINPREP TIS PAP AND HPV mRNA E6/E7, CT/NG, TRICH (04/02/2022 4:27 PM EDT) Chlamydia trachomatis RNA, TMA, Urogenital NOT DETECTED NOT DETECTED [facility] Clinical Information: None given [facility] COMMENT SEE COMMENT [facility] Comment: The analytical performance characteristics of this assay, when used to test SurePath(TM) specimens have been determined by [facility]. The modifications have not been cleared or approved by the FDA. This assay has been validated pursuant to the CLIA regulations and is used for clinical purposes. For additional information, please refer to https://AdExtent.SureVisit/faq/JEE581 (This link is being provided for information/ [...] has been evaluated with computer assisted technology. [facility] Manager Personal: SEE COMMENT [facility] Comment: SL, CT(ASCP) CT screening location: [place] [address] HPV nRNA E6/E7 Not Detected Not Detected [facility] Comment: Methodology: Glass Sander Belt-Mediated Amplification This assay detects E6/E7 viral messenger RNA (mRNA) from 14 high-risk HPV types (16,18,31,33,35,39,45,51,52,56,58,59,66,68). Cervical sources are required for HPV testing. If a vaginal source from a patient who has had a total hysterectomy with removal of cervix was submitted, please contact the testing laboratory for alternative testing options. For additional information, please refer to http://education.SureVisit/faq/MXA289l5 (This link if provided for information/ educational [...] of this assay have been determined by [facility]. The modifications have not been cleared or approved by the FDA. This assay has been validated pursuant to the CLIA regulations and is used for clinical purposes. For additional information, please refer to http://AdExtent.SureVisit/ faq/Trichomonastma (This link is being provided for information/ educational purposes only.) 04/02/2022 4:27 PM EDT Qiana Licona NP LAB PATHOLOGY ORDERABLES Final Result [facility] [address] from Last 3 Months or Most Recently Relevant to Health Maintenance Insurance [facility] C3 Care Teams Engineering Intern Relationship Specialty Start Date End Date Mariela Roland FNP [address] [place] [phone] PCP - General Family Medicine 06/10/22 Darrick Carlton MD [address] [place] [address] 3rd [place] [address] General Surgery 09/12/24 Carlos Patel [address] [place] [address] Gynecology 09/12/24
--- OUTSIDE RECORDS SUMMARY | 2025-06-07 09:59 | XMS_ITS | Encounter Summary ---
Author Organization [employer] Address [address] [facility] 7t [place] [address] Care Team Providers Care Tab Cutter Name Role Phone Mariela Roland Primary Care Provider [phone] Darrick Carlton MD Unavailable [phone] Carlos Patel Unavailable Encounter Details Date Type Department Care Team ([facility] Contact Info) Description 04/06/2024 Telephone [facility] MED [facility] PEDS [address] [place], [place] [phone] Mariela Roland FNP [address] [place] [address] Social History Tobacco Use Types Packs/Day Years [...] review and advise for below message. [facility] is requesting notes to be faxed. Please advise whennotes is complete. * Telephone Encounter - Kathy Huerta - 04/06/2024 2:12 PM EDT Narendra Sewell with [facility] general surgery requesting 04/05 OV notes to be faxed to [phone]. documented in this encounter Plan of Treatment Not on file documented as of this encounter Visit Diagnoses Not on filedocumented in this encounter Additional Health Concerns Assessment Noted Time PHQ-9 Depression Total Score: 2 01/30/20 24 8:40 AM EDT documented as of this encounter Care Teams Tab Cutter Relationship Specialty Start Date End Date Mariela Roland FNP [address] [place] [address] PCP - General Family Medicine 06/10/22 Darrick Carlton MD [address] [place] [address] [place] [address] General Surgery 09/12/24 Carlos Patel [address] [place] [address] Gynecology 09/12/24 documented as of this encounter
--- OUTSIDE RECORDS SUMMARY | 2025-06-07 09:59 | XMS_ITS | Encounter Summary ---
Author Organization [employer] Address [address] [place] [address] 7 [place] [address] Care Team Providers Care Orchestra Teacher Name Role Phone Mariela Roland Primary Care Provider [phone] Darrick Carlton MD Unavailable [phone] Carlos Patel Unavailable Encounter Details Date Type Department Care Team (Latest Contact Info) Description 06/30/[address] [facility] CONVERSIONS Dental, Provider, DDS Social History [...] on filedocumented in this encounter Care Teams Orchestra Teacher Relationship Specialty Start Date End Date Mariela Roland FNP [address] [place] [address] PCP - General Family Medicine 06/10/22 Darrick Carlton MD [address] [place] [address] General Surgery 09/12/24 Carlos Patel [address] [place] [address] Gynecology 09/12/24 Qiana Leach RN Care Manager 08/19/23 01/09/24 documented as of this encounter
== END 2025-06-07 09:28 | disposition home or self-care (01) ==
LOC: HO.HGS 09:04
PROVIDERS: PCP Registered Nurse; Visit Provider Surgery
DX: L73.9 Follicular disorder, unspecified (principal)
CPT/HCPCS: 99024

== ENCOUNTER → 2025-06-07 09:04 | Outpatient (BNVA) | payer MEDICAID, SELFPAY | PROVIDERS: PCP Registered Nurse; Visit Provider Surgery | DX: L73.9 Follicular disorder, unspecified (principal); Z98.890 Other specified postprocedural states | CPT/HCPCS: 99212 ==

== ENCOUNTER 2025-06-08 13:17 | Outpatient (AMB) | payer MEDICAID, SELFPAY ==
--- OUTSIDE RECORDS SUMMARY | 2025-06-08 13:35 | XMS_ITS | Encounter Summary ---
Author Organization [employer] Address [address] [facility] 7t [place] [address] Care Team Providers Care Clinical Marketing Manager Name Role Phone Mariela Roland Primary Care Provider Darrick Carlton MD Unavailable [phone] Carlos Patel Unavailable Encounter Details Date Type Department Care Team ([facility] Contact Info) Description 04/06/2024 Telephone [facility] MED [facility] PED[facility] [address] [place], [place] [phone] Mariela Roland FNP [address] [place] [address] Social History Tobacco Use Types Packs/Day Years [...] Please review and advise for below message. [facility] is requesting notes to be faxed. Please advise whennotes is complete. * Telephone Encounter - Kathy Huerta - 04/06/2024 2:12 PM EDT Narendra Sewell with [facility] general surgery requesting 04/05 OV notes to be faxed to [phone]. documented in this encounter Plan of Treatment Not on file documented as of this encounter Visit Diagnoses Not on filedocumented in this encounter Additional Health Concerns Assessment Noted Time PHQ-9 Depression Total Score: 2 01/30/20 24 8:40 AM EDT documented as of this encounter Care Teams Clinical Marketing Manager Relationship Specialty Start Date End Date Mariela Roland FNP [address] [place] [address] PCP - General Family Medicine 06/10/22 Darrick Carlton MD [address] [place] [address] [place] [address] General Surgery 09/12/24 Carlos Patel [address] [place] [address] Gynecology 09/12/24 documented as of this encounter
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
--- OUTSIDE RECORDS SUMMARY | 2025-06-08 13:35 | XMS_ITS | Encounter Summary ---
Author Organization [employer] Address [address] [place] [address] 7 [place] [address] Care Team Providers Care Tectonophysicist Name Role Phone Mariela Roland Primary Care Provider [phone] Darrick Carlton MD Unavailable [phone] Carlos Patel Unavailable Encounter Details Date Type Department Care Team (Latest Contact Info) Description 06/30/2019 Abstract [facility] CONVERSIONS Dental, Provider, DDS Social History [...] on filedocumented in this encounter Care Teams Tectonophysicist Relationship Specialty Start Date End Date Mariela Roland FNP [address] [place] [address] PCP - General Family Medicine 06/10/22 Darrick Carlton MD [address] [place] [address] General Surgery 09/12/24 Carlos Patel [address] [place] [address] Gynecology 09/12/24 Qiana Leach RN Care Manager 08/19/23 01/09/24 documented as of this encounter
--- OUTSIDE RECORDS SUMMARY | 2025-06-08 13:35 | XMS_ITS | Encounter Summary ---
Author Organization [facility] Address [address] [facility] [address] [place] [address] Phone Care Team Providers Care Senior User Experience Architect Name Role Phone Aaron Brink NP, Ana Primary Care Provider Mariela Tsang Primary Care Provider [phone] Encounter Details Date Type Department Care Team (Late st Contact Info) Description 08/20/2023 Procedure Pass [facility] L[facility]D Procedures [address] [place] [address] Social History Tobacco Use Types Packs/Day Years [...] 08/20/2023 7:31 AM Loretta Case RN * [place] Suicide Severity Rating Scale (Screener/Recent Self-Report) Question [...] on filedocumented in this encounter Care Teams Senior User Experience Architect Relationship Specialty Start Date End Date Ana Walker NP PCP - General 07/27/17 08/26/23 Mariela Roland FNP [address] [place] [address] PCP - General Nurse Practitioner 08/27/23 documented as of this encounter Additional Source Comments The information contained in this document represents components of the legal health record. It is not the complete legal health record.[facility]
--- OUTSIDE RECORDS SUMMARY | 2025-06-08 13:35 | XMS_ITS | Clinical Summary ---
Author Organization [employer] Address [address] [facility] [address] [place] [address] Care Team Providers Care Turn Down Man Name Role Phone VanessashantiElle QUIQUE Primary Care Provider [phone] Darrick Carlton MD Unavailable [phone] Carlos Patel Unavailable Allergies No known [...] eorder (will not trigger notification to Pharmacy)) pantoprazole (ProtoNix) 40 MG EC tabletIndication s:Gastroesophage al reflux disease with hiatal hernia TAKE 1 TABLET BY MOUTH EVERY DAY 90 tablet 1 024 2024 Discontinued(R eorder (will not trigger notification to Pharmacy)) Active Problems Problem Noted Date Diagnosed Date 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 Carlton [place] [facility] [place] Assessment & Plan (09/12/2024 7:55 PM EST): -S/p excision of HS lesion right groin x 2: April 2024 & Jul 2024 at [facility] [place] - Dr. Carlton Microscopic hematuria 04/06/2024 Assessment & Plan (04/24/2025 3:38 PM EDT): Following with [facility]rology - LEELEE Costa 02/14/25: US retroperitoneal ordered by KIRK Costa. Impression - normal kidneys. Assessment & Plan (05/15/2024 1:03 PM EDT): Following with [facility] - LEELEE Costa Plan: labs and retroperitoneal US follow up in February 2025 with Urology Hematochezia 01/28/2024 Assessment & Plan (01/28/2024 10:45 AM EDT): History of blood in stool Referral to GI placed 12/28/23 Reviewed ED/urgent care precautions Upcoming appt end of January 2024. Healthcare maintenance 12/28/2023 Overview (04/24/2025): Pap: 04/02/22 NIL/HPV neg, repeat due 2026 Optometry: followed by [facility] Last PE: 04/23/25 History [...] (01/28/2024 7:24 AM EDT): -Previously followed by [facility] Derm team and tx with Minoxidil (although discontinued use during ) Assessment & Plan (12/26/2023 6:23 PM EDT): -Minoxodil not advised during -Refill of betamethasone, although advised of risks and SE of remote computer terminal operator use. Pt to use sparingly PRN Assessment & Plan (01/26/2023 1:18 PM EDT): -Minoxodil not advised during -Refill of betamethasone, although advised of risks and SE of remote computer terminal operator use. Pt to use sparingly PRN Assessment & Plan (12/04/2022 9:44 AM EST): -Discontinue Betamethasone and initiate 5% Minoxidil Foam to use 1-2x daily. -Reassured patient, this will self-resolve. Assessment & Plan (10/05/2022 8:26 PM EST): -Follow up with Derm as scheduled Nov 2021 -Confirmed with [facility] Derm team they have the ability to do intralesional injections day of if appropriate -Check labs including JASVIR, RF, TSH, liver panel, iron studies -Patient education handout from [employer] provided Hypercholesterolemia 09/23/2022 Assessment & Plan (05/21/2025 [...] 12:22 PM EDT): - Previously following with [facility] - pantoprazole 40mg daily and sucralfate (through GI) -Refill of medications and referred to reestablish with GI. Assessment & Plan (04/24/2025 3:43 PM EDT): -Following with [facility] -Continues with pantoprazole 40mg daily and sucralfate (through GI) Assessment & Plan (01/28/2024 7:26 AM EDT): -Following with [facility] -Continues with pantoprazole 40mg daily and sucralfate (through GI) Assessment & Plan (10/05/2022 8:22 PM EST): -Following with [facility] -Continues with pantoprazole 40mg daily and sucralfate (through GI) Vitamin D insufficiency 02/06/2019 Overview (05/21/2025): Lab Results Component Value Date [id number] 25.8 (L) 05/07/2025 [id number] 32.5 05/01/2024 Assessment & Plan (05/21/2025 12:22 [...] request for neb machine: 12/28/23 (faxed to [employer]) - recieved Assessment & Plan (01/30/2024 8:41 AM EDT): Continue albuterol PRN Reviewed Rule of 2's to assess control, currently well controlled DME request for neb machine: 12/28/23 (faxed to [employer]) - recieved Assessment & Plan (12/28/2023 12:10 [...] problem list. Recently had Level II at [facility], results reviewed. She has a repeat [...] Description 05/21/2025 11:00 AM EDT Office Visit [facility] [address] [place] [address] Mariela Roland FNP Gastroesophageal reflux disease with hiatal hernia (Primary Dx); Vitamin D insufficiency; Hypercholesterolemia; Bloating 05/21/2025 Travel 05/11/2025 Results Follow-Up [facility] [address] [place] [phone] Katalina Orellana MD Lipid Panel, Standard, Hemoglobin A1c, TSH with Reflex to Free T4, Additional followed-up results: 9 05/07/2025 Telephone [facility] [address] [place] [address] Mariela Roland FNP Lab Orders 05/07/2025 Refill [facility] [address] [place] [address] Mariela Roland FNP Vitamin D insufficiency 04/26/2025 Refill [facility] [address] [place] [address] Mariela Roland FNP Xerosis of skin 04/23/2025 10:30 AM EDT Office Visit [facility] [address] [place] [address] Mariela Roland FNP Encounter for routine history and physical examination of adult (Primary Dx); Healthcare maintenance; Xerosis of skin; Encounter for initial prescription of contraceptive pills; Microscopic hematuria; Hypercholesterolemia; Dietary counseling; Exercise counseling; Vitamin D deficiency; History of gestational diabetes; Gastroesophageal reflux disease with hiatal hernia; Constipation, unspecified constipation type; Mild intermittent asthma without complication; Hidradenitis suppurativa 04/23/2025 Travel 04/16/2025 Patient Outreach [facility] [address] [place] [address] Mariela Roland FNP Pre-visit Planning (Pre visit [...] 10/16/19 21, 05/07/2020, 06/30/2019, Additional history exists Influenza Vaccine [...] 8:05 AM EDT 05/28/2025 9:30 AM EDT [facility] - 05/29/2025 12:25 PM EDT ----- ------- Name: Mariaelena Calles Age/Sex: 39/F : 1985 Unit#: [id number] Attend Dr: Darrick Carlton MD Re05/28/25 Status: [facility] Location: [facility] Disch: ----- ------- SPEC : [id number] RECD: 05/28/25 STATUS: KEYSHAWN LAINEZ NUM: [id number] BRENDAN: 05/28/25 [facility] DR: Darrick Carlton MD ENTERED: 05/28/25 SP [...] Mariaelena Calles Age/Sex: 39/F : 1985 Unit#: [id number] Attend Dr: Darrick Carlton MD Re05/28/25 Status: [facility] Location: [facility] Disch: ----- ------- SPEC : [id number] RECD: 05/28/25 STATUS: KEYSHAWN LAINEZ NUM: [id number] BRENDAN: 05/28/[address] [facility] [address]: Darrick Carlton MD ENTERED: 05/28/25 SP TYPE: Surgical OTHR DR: Mariela Roland ORDERED: Gross Micro L4/2 IHC S/NG Disclaimer NOTE: Unless otherwise stated, all tissue is formalin-fixed and paraffin-embedded. Some or all of the immunohistochemical tests reported herein may have been developed and their performance characteristics determined by [facility]. They have not been cleared or approved by the U.S. Food and Drug Administration (FDA). However, the FDA has determined that such clearance or approval is not necessary. This laboratory is certified under the Clinical Laboratory Improvement Amendments of 1988 (CLIA) as qualified to perform high complexity clinical laboratory testing. Copies To: Darrick Carlton MD [facility] General Surgeons [address] [place] [address] [phone] Mariela Roland [address] [place], [place] [phone] ----- ------- Signed (signature on file) Al Bonilla MD 05/29/25 1225 ----- ------- END OF REPORT Generic External Data Provider LAB CYTOLOGY ORDE RABLES Final Result Performing Organization Address [facility] de Phone Number [facility] [address] [place] [phone] * HCG, Qualitative, Urine (05/28/2025 6:12 AM EDT) [facility] Urine NEGATIVE NEGATIVE [facility] Comment:This test was develo ped to detect early . Falsenegative results may occur after the 5th - 7th week ofpregnancy when using this test method. If clinicallyindicated, consider a serum hCG. 05/28/2025 6:12 AM EDT 05/28/2025 6:44 AM EDT Generic External Data Provider LAB URINE ORDERAB LES Final Result Performing Organization Address [facility] de Phone Number [facility] [address] [place] [phone] * (ABNORMAL) Vitamin D, 25-Hydroxy, Total, Immunoassay (05/07/2025 1:14 PM EDT) Vitamin D 25-OH Total 25.8(L) >30 ng/mL [facility] Comment: Health Based Reference Values*< 20 ng/mL Lltrknzln42-25 ng/mL Insufficient> 30 ng/mL Sufficient*Luis M MEZA. [...] EDT 05/07/2025 2:45 PM EDT Mariela Roland [facility] LAB BLOOD ORDERABLES Final Res ult Performing Organization Address [facility] Co de Phone Number [facility] [address] [place] [phone] * TSH with Reflex to Free T4 (05/07/2025 1:14 PM EDT) TSH reflex Free T4 0.76 0.32 - 4.0 uIU/mL [facility] Blood 05/07/2025 1:1 4 PM EDT 05/07/2025 2:45 PM EDT Mariela Roland [facility] LAB BLOOD ORDERABLES Final Res ult Performing Organization Address [facility] Co de Phone Number [facility] [address] [place] [phone] * Hepatitis C Viral RNA, Quantitative, Real-Time PCR (05/07/2025 1:14 PM EDT) [facility] Hepatitis C Viral Load <15 NOT DETECTED NOT DETECTED IU/mL [facility] HCV Log PCR <1.18 NOT DETECTED NOT DETECTED Log IU/mL [facility] Comment:For additional infor parisa, please refer tohttp://education.AdGrok/faq/ZGZ09w3(This link is being provided for informational/educational purposes only.)THIS TEST WAS PERFORMED AT:[employer] [place] [id number] TONG MD Blood 05/07/2025 1:14 PM EDT 05/07/2025 2:45 PM EDT Mariela Roland [employer] LAB BLOOD ORDERABLES Final Res ult [facility] [address] [place] [address] [phone] * (ABNORMAL) CBC auto differential (05/07/2025 1:14 PM EDT) [facility] White Blood Count 5.0 4.8 - 10.8 X10*3/uL [facility] Red Blood Count 4.39 4.20 - 5.50 X10*6/uL [facility] Hemoglobin 12.9 12.0 - 16.0 g/dl [facility] Hematocrit 39.9 37.0 - 47.0 % [facility] Mean Corpuscular Volume 90.9 80.0 - 98.0 fL [facility] Mean Corpuscular Hemoglobin 29.4 27.0 - 33.0 pg [facility] Mean Corpuscular HGB Conc 32.3 31.0 - 35.0 g/dl [facility] Red Cell Distribution Width 12.4 11.0 - 16.0 % [facility] Platelet Count 230 160 - 400 X10*3/uL [facility] Mean Platelet Volume 11.2 9.4 - 12.3 fL [facility] Neutrophils Percent Auto 53.7 45 - 73 % [facility] Imm Gran Pct Auto 0.4 0.0 - 0.4 % [facility] Lymphocytes Percent Auto 32.3 20 - 40 % [facility] Monocytes Percent Auto 6.6 2 - 11 % [facility] Eosinophils Percent Auto 5.8(H) 0 - 4 % [facility] Basophils Percent Auto 1.2 0 - 2 % [facility] NRBC Pct Auto 0.0 0.0 - 0.2 /100WBC [facility] Neutrophils Absolute Auto 2.7 2.0 - 8.3 x10*3/uL [facility] Imm Gran Abs Auto 0.02 0.00 - 0.03 X10*3/uL [facility] Lymphocytes Absolute Auto 1.6 1.2 - 4.9 X10*3/uL [facility] Monocytes Absolute Auto 0.3 0.1 - 1.2 X10*3/uL [facility] Eosinophils Absolute Auto 0.3 0.0 - 0.4 X10*3/uL [facility] Basophils Absolute Auto 0.1 0.0 - 0.2 X10*3/uL [facility] NRBC Abs Auto 0.000 0.0 - 0.012 X10*3/uL [facility] Blood Venous blood specimen / Unknown 05/07/2025 1:14 PM EDT 05/07/2025 2:43 PM EDT us Mariela Roland [employer] LAB BLOOD ORDERABLES Final Res ult [facility] [address] [place] [phone] [phone] * Iron And Total Iron Binding Capacity (05/07/2025 1:14 PM EDT) Iron 72 30 - 160 mcg/dL [facility] Total Iron Binding Capacity 292 228 - 428 mcg/dL [facility] Percent Iron Saturation 25 15 - 50 % [facility] Unsaturated Iron Binding 220 ug/dL [facility] Blood Venous blood specimen / Unknown 05/07/2025 1:14 PM EDT 05/07/2025 2:45 PM EDT us Mariela Phalshanti [employer] LAB BLOOD ORDERABLES Final Res ult Performing Organization Address [facility] Co de Phone Number [facility] [address] [place] [phone] * RPR (Monitor) with Reflex to??Titer (05/07/2025 1:14 PM EDT) RPR (Monitor) w/Refl Titer NON-REACTI VE NON-REACT NAYELY [facility] Comment:THIS TEST WAS PERFOR MED AT:[employer] [place] [id number] TONG MD Rapid Plasma Reagin Ab Titer TNP [facility] Blood Venous blood specimen / Unknown 05/07/2025 1:14 PM EDT 05/07/2025 2:45 PM EDT Mariela Roland [employer] LAB BLOOD ORDERABLES Final Res ult Performing Organization Address [facility] de Phone Number [facility] [address] [place] [phone] * HIV-1/2 Antigen and Antibodies, Fourth Generation, with Reflexes (05/07/2025 1:14 PM EDT) HIV AB/AG Nonreactive Nonreactive [facility] Comment:HIV-1 p24 Ag and/or HIV-1/HIV-2 Ab not detected.A test result that is nonreactive does not exclude thepossibility of exposure to or infection with HIV-1 and/orHIV-2. Nonreactive results in this assay for individualswith prior exposure to HIV-1 and/or HIV-2 may be due toantigen and antibody levels that are below the limit ofdetection of this assay.The [employer] HIV Ag/Ab Combo assay result andsupplemental assay results should be interpreted inconjunction with the patient's clinical presentation,history and other laboratory results. If the results areinconsistent with clinical evidence, additional testing issuggested to confirm the result. Blood Venous blood specimen / Unknown 05/07/2025 1:14 PM EDT 05/07/2025 2:45 PM EDT Mariela Roland [facility] LAB BLOOD ORDERABLES Final Res ult Performing Organization Address [facility] Co de Phone Number [facility] [address] [place] [address] [phone] * Hemoglobin A1c (05/07/2025 1:14 PM EDT) Hemoglobin A1c 5.2 <6.0 % [facility] Comment:Hemoglobin A1C Refer ence Range Adults: 4.8 - 6.0 % Non diabetic: < 6.0 % Goal: < 7.0 %Additional Action Suggested: > 8.0 %Note: Hemoglobin A1c results are invalid for patients with abnormal amounts of HbF. Blood transfusions may impact the HbA1c concentration in the patient sample. Estimated Average Glucose 103 mg/dL [facility] Comment:eAG = Estimated ave rage glucose which is %A1C expressed asaverage glucose, using the formula of the A4I-ZywtjybQtlmnby Glucose study (ADAG), Diabetes Care, Vol.31,#8,May. 2007 Blood Venous blood specimen / Unknown 05/07/2025 1:14 PM EDT 05/07/2025 2:43 PM EDT Mariela Roland [facility] LAB BLOOD ORDERABLES Final Res ult Performing Organization Address [facility] Co de Phone Number [facility] [address] [place] [phone] * Ferritin (05/07/2025 1:14 PM EDT) Ferritin 21 10 - 122 ng/mL [facility] Blood Venous blood specimen / Unknown 05/07/2025 1:14 PM EDT 05/07/2025 2:45 PM EDT Mariela Roland [facility] LAB BLOOD ORDERABLES Final Res ult Performing Organization Address [facility] Co de Phone Number [facility] [address] [place] [phone] [phone] * (ABNORMAL) Lipid Panel, Standard (05/07/2025 1:14 PM EDT) Triglycerides 64 <150 mg/dL [facility] Comment:Desirable Triglyceri de: less than 150 mg/dLBorderline High Triglyceride 150-199 mg/dLHigh Triglyceride: 200-499 mg/dLVery High Triglyceride: greater than or equal to 5OO mg/dL Cholesterol 183 <200 mg/dL [facility] Comment:Desirable Cholestero l: less than 200 mg/dLBorderline High Cholesterol: 200-239 mg/dLHigh Cholesterol: greater than 239 mg/dL LDL Cholesterol Calculated 124(H) <100 mg/dL [facility] Comment:Desirable LDL: less than 100 mg/dLNear Optimal/Above Optimal LDL: 110- 129 mg/dLBorderline High LDL: 130-159 mg/dLHigh LDL: 160-189 mg/dLVery High LDL: greater than or equal to 190 mg/dL HDL Cholesterol 47 >40 mg/dL [facility] Comment:Desirable HDL: great er than 40 mg/dL Note: This HDL assay may give artificially low results in patients with liver disease. Blood Venous blood specimen / Unknown 05/07/2025 1:14 PM EDT 05/07/2025 2:45 PM EDT Mariela Roland [facility] LAB BLOOD ORDERABLES Final Res ult Performing Organization Address City/[facility]/ZIP Co de Phone Number [facility] [address] [place] [phone] * (ABNORMAL) Comprehensive Metabolic Panel (05/07/2025 1:14 PM EDT) Sodium 140 135 - 145 mmol/L [facility] Potassium 4.5 3.3 - 5.1 mmol/L [facility] Chloride 108 96 - 108 mmol/L [facility] Carbon Dioxide 26 22 - 29 mmol/L [facility] Anion Gap 11(L) 12 - 20 [facility] Urea Nitrogen (BUN) 5(L) 9 - 16 mg/dL [facility] Creatinine, Serum 0.62 0.5 - 1.4 mg/dL [facility] Estimated Glomerular Filt Rate >60 [facility] Comment:Chronic Kidney Disea se: Estimated GFR < 60 mL/min/1.84a7Eahtax Kidney Disease: Estimated GFR < 15 mL/min/1.73m2 Glucose 88 60 - 115 mg/dL [facility] Calcium 8.5 8.4 - 10.2 mg/dL [facility] Bilirubin, Total 0.3 0.0 - 1.0 mg/dL [facility] Aspartate Amino Transferase 18 5 - 31 U/L [facility] Alanine Aminotransferase 21 0 - 31 U/L [facility] Total Protein 6.5 6.5 - 8.0 g/dL [facility] Albumin Level 4.2 3.5 - 5.0 g/dL [facility] Alkaline Phosphatase 63 39 - 117 U/L [facility] Blood Venous blood specimen / Unknown 05/07/2025 1:14 PM EDT 05/07/2025 2:45 PM EDT us Mariela Roland [employer] LAB BLOOD ORDERABLES Final Res ult [facility] [address] [place] [phone] [phone] * Chlamydia/Trichomonas/Neisseria gonorrhoeae, PCR, Urine (05/07/2025 12:00 AM EDT) CT PCR, Urine NOT DETECTED Not Detect. [facility] Comment:A not detected test result does [...] NG PCR, Urine NOT DETECTED Not Detect. [facility] Comment:A not detected test result does [...] adverse medical, social or psychologicalconsequences. 05/07/2025 05/07/2025 Mariela Roland [facility] LAB URINE ORDERABLES Final Res ult [facility] [address] [place] [phone] * POCT Urine (04/23/2025 11:43 AM EDT) Preg Test, Ur Negative Negative, Indeterminate, None Detected, Invalid, Specimen unsatisfactory for evaluation, Weakly Positive, 2+ Comment:internal controls pa ssed QC Media Lot # [id number] Lot# Expiration Date [id number] Urine 04/23/2025 11:4 3 AM EDT us Mariela Roland [employer] POINT OF CARE TEST ENTER/EDIT ORDERABLES Final Result * THINPREP TIS PAP AND HPV mRNA E6/E7, CT/NG, TRICH (04/02/2022 4:27 PM EDT) Chlamydia trachomatis RNA, TMA, Urogenital NOT DETECTED NOT DETECTED [facility] Clinical Information: None given [facility] COMMENT SEE COMMENT [facility] Comment: The analytical performance characteristics of this assay, when used to test SurePath(TM) specimens have been determined by [employer]. The modifications have not been cleared or approved by the FDA. This assay has been validated pursuant to the CLIA regulations and is used for clinical purposes. For additional information, please refer to https://Twitter.AdGrok/faq/BGN269 (This link is being provided for information/ [...] has been evaluated with computer assisted technology. [facility] E Learning Manager: SEE COMMENT [facility] Comment: SL, CT(ASCP) CT screening location: [place] [address] HPV nRNA E6/E7 Not Detected Not Detected [facility] Comment: Methodology: Manager Social Media-Mediated Amplification This assay detects E6/E7 viral messenger RNA (mRNA) from 14 high-risk HPV types (16,18,31,33,35,39,45,51,52,56,58,59,66,68). Cervical sources are required for HPV testing. If a vaginal source from a patient who has had a total hysterectomy with removal of cervix was submitted, please contact the testing laboratory for alternative testing options. For additional information, please refer to http://education.AdGrok/faq/OOE635t9 (This link if provided for information/ educational [...] of this assay have been determined by [employer]. The modifications have not been cleared or approved by the FDA. This assay has been validated pursuant to the CLIA regulations and is used for clinical purposes. For additional information, please refer to http://education.AdGrok/ faq/Trichomonastma (This link is being provided for information/ educational purposes only.) 04/02/2022 4:27 PM EDT Qiana Licona NP LAB PATHOLOGY ORDERABLES Final Result [facility] [address] from Last 3 Months or Most Recently Relevant to Health Maintenance Insurance [facility] C3 Care Teams Turn Down Man Relationship Specialty Start Date End Date Mariela Roland FNP [address] [place] [phone] PCP - General Family Medicine 06/10/22 Darrick Carlton MD [address] [place] [address] 3rd [place] [address] General Surgery 09/12/24 Carlos Patel [address] [place] [address] Gynecology 09/12/24
--- OUTSIDE RECORDS SUMMARY | 2025-06-08 13:35 | XMS_ITS | Encounter Summary ---
Author Organization [employer] Address [address] [facility] 7t [place] [address] Care Team Providers Care Wire Coating Machine Operator Name Role Phone Mariela Roland Primary Care Provider [phone] Darrick Carlton MD Unavailable [phone] Carlos Patel Unavailable Reason for Visit * Reason Comments Med Change Request Encounter Details Date Type Department Care Team (Late st Contact Info) Description 11/04/2022 Refill [facility] [address] [place] [address] Mariela Roland FNP [address] [place] [address] Iron deficiency Social History Tobacco Use Types [...] documented as of this encounter Care Teams Wire Coating Machine Operator Relationship Specialty Start Date End Date Mariela Roland FNP [address] [place] [address] PCP - General Family Medicine 06/10/22 Darrick Carlton MD [address] [place] [address] [address] [place] [address] General Surgery 09/12/24 Carlos Patel [address] [place] [address] Gynecology 09/12/24 Qiana Leach cfo controller 08/19/23 01/09/24 documented as of this encounter
--- OUTSIDE RECORDS SUMMARY | 2025-06-08 13:35 | XMS_ITS | Encounter Summary ---
Author Organization [facility] Address [address] [place] [address] [address], [place] [address] Care Team Providers Care Integrity Engineer Name Role Phone Mariela Roland Primary Care Provider [phone] Darrick Carlton MD Unavailable [phone] Carlos Patel Unavailable Encounter Details Date Type Department Care Team (Latest Contact Info) Description 10/16/2020 Abstract [facility] CONVERSIONS Dental, Provider, DDS Social History [...] on filedocumented in this encounter Care Teams Integrity Engineer Relationship Specialty Start Date End Date Mariela Roland FNP [address] [place] [address] PCP - General Family Medicine 06/10/22 Darrick Carlton MD [address] [place] [id number] General Surgery 09/12/24 Carlos Patel [address] [place] [address] Gynecology 09/12/24 Qiana Leach RN Care Manager 08/19/23 01/09/24 documented as of this encounter
--- NOTE | 2025-06-08 13:48 | A.OFFVIS_ITS ---
Intake Visit Reasons: removal of stitch Allergies No Known Allergies Allergy (Verified 04/19/25 11:22) HPI HPI removal of stitch: Details: She had excision of hidradenitis with Dr. Carlton. She is here because of more stitches that needed to be removed. She says that there were 3 stitches that were not removed yesterday. [facility]LY [facility] Medical History GERD (gastroesophageal reflux disease) Gestational diabetes Habitual snoring Aerophagia Epidermal cyst Acid reflux Hydradenitis Asthma Surgical History History of surgery (05/28/25) History of esophagogastroduodenoscopy (EGD) Hx of section History of incision and drainage Social History Household Members Other:: Lives alone no children Are you a primary managed care analyst to a significant other at home: Yes Do you presently have visiting nurse or other home services: No Patient Tobacco Use Status: Never used Tobacco Second Hand Smoke Exposure: No Current occupational status: employed Current occupation: [employer] Review of Systems Const Denies chills and Denies fever(s) Physical Exam Const General: comfortable and no acute distress Skin Other: Excision site well healed. Three stitches were seen towards the posterior aspect of the excision Assessment & Plan Assessment & Plan (1) Hydradenitis: Code(s): L73.2 - Hidradenitis suppurativa Category: Medical Plan: Status post excision by Dr. Carlton. The rest of her sutures were removed without difficulty. She can follow up on a p.r.n. basis. Coding Level of Care Code Global (00188) Diagnoses Hydradenitis L73.2
== END 2025-06-08 13:29 | disposition home or self-care (01) ==
PROVIDERS: PCP Registered Nurse; Visit Provider Surgery
DX: L73.2 Hidradenitis suppurativa (principal)
CPT/HCPCS: 99024

== ENCOUNTER → 2025-06-08 13:17 | Outpatient (BNVA) | payer MEDICAID, SELFPAY | PROVIDERS: PCP Registered Nurse; Visit Provider Surgery | DX: L73.2 Hidradenitis suppurativa (principal) | CPT/HCPCS: 99212 ==

== ENCOUNTER 2025-08-27 11:33 | Outpatient (AMB) | payer MEDICAID, SELFPAY ==
--- NOTE | 2025-08-27 11:36 | A.OFFVIS_ITS ---
Vital Signs 08/27/25 11:38 Height 5 ft 7 in Weight 187 lb 6.287 oz BMI 29.3 BP 113/75 Blood Pressure Location Lt brachial Position Sitting Pulse 98 Intake Visit Reasons: Was PT Hemorrhoids/ Gerd with Hi hernia Intake Note: Mariaelena presents in the office as a follow up [facility] patient in the past. CC: Follow up for GERD and Hiatal Hernia. States she has GERD - she had a baby 2 years ago. She had to stop her medications due to being - she told her PCP her GERD was back and it is alot even when she swallows. 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 Reports sx more pronounced x 2 years. Describes sx as refluxing of acidic contents as well as regurgitation of post nasal drip or saliva frequently. Also burps a lot. No difficulty swallowing. Does not report any choking episodes. REPLACED BY [facility] Medical History GERD (gastroesophageal reflux disease) Gestational diabetes Habitual snoring Aerophagia Epidermal cyst Acid reflux Hydradenitis Asthma Surgical History History of surgery (05/28/25) History of esophagogastroduodenoscopy (EGD) Hx of section History of incision and drainage Social History Household Members Other:: Lives alone no children Are you a primary medicare biller to a significant other at home: Yes Do you presently have visiting nurse or other home services: No Patient Tobacco Use Status: Never used Tobacco Second Hand Smoke Exposure: No Current occupational status: employed Current occupation: [employer] Review of Systems Const All systems reviewed & are unremarkable except as noted in HPI and below Physical Exam Exam Exam: No apparent distress Nonicteric Abdomen soft, nondistended, noted to belch frequently Alert and oriented x3, normal gait Vital Signs: Last Vital Signs Pulse 98 08/27/25 11:38 BP 113/75 08/27/25 11:38 BMI result Body Mass Index 29.3 Assessment & Plan Assessment & Plan (1) Esophagitis: Code(s): K20.90 - Esophagitis, unspecified without bleeding Category: Medical (2) Acid reflux: Code(s): K21.9 - Gastro-esophageal reflux disease without esophagitis Category: Medical (3) Belching: Code(s): R14.2 - Eructation Category: Medical Plan Based on presentation today, difficult to ascertain if has two distinct sx i.e GERD and regurgitation with functiona eructation or if all part of reflux. Prev EGD reviewed with increase Eos. Can not exclude EoE as bx were taken as random not differentiated between prox and distal esophagus. Pt also with stricture on prev EGD. Plan: - Switch to omeprazole 20 BID - Barium swallow - EGD to be booked - Reviewed strategies to decrease aerophagia and eructation i.e to avoid chewing gum, smoking, carbonated beverages etc. Follow up after egd Orders: Orders FL barium swallow Today K20.90 - Esophagitis, unspecified without bleeding Referrals GI Procedure Notification K20.90 - Esophagitis, unspecified without bleeding Medications: New omeprazole 20 mg PO BID 60 caps 3RF 30 days Patient Instructions: - Stop pantoprazole. Start omeprazole 20 mg twice a day. - A barium swallow (xray test of the esophagus) will be scheduled by radiology department. - You will also get a call from GI office to schedule your upper endoscopy. Coding Level of Care Code New Pt Level 4 (80827) Diagnoses Esophagitis K20.90 Acid reflux K21.9 Belching R14.2
[2025-08-27 11:38] VITALS: BP 113/75; PULSE 98; BMI 29.3
== END 2025-08-27 11:59 | disposition home or self-care (01) ==
LOC: HO.HGI 11:33
PROVIDERS: PCP Registered Nurse; Visit Provider Internal Medicine
DX: K20.90 Esophagitis, unspecified without bleeding (principal); K21.9 Gastro-esophageal reflux disease without esophagitis; R14.2 Eructation
CPT/HCPCS: 99204

== ENCOUNTER → 2025-08-27 11:33 | Outpatient (BNVA) | payer MEDICAID, SELFPAY | PROVIDERS: PCP Registered Nurse; Visit Provider Internal Medicine | DX: K20.90 Esophagitis, unspecified without bleeding (principal); K21.9 Gastro-esophageal reflux disease without esophagitis; R14.2 Eructation | CPT/HCPCS: 99202 ==